=== PATIENT | female | born 1945 | race Caucasian/White ===

== ENCOUNTER → 2019-01-31 10:57 | Outpatient (CLI) | payer MEDICARE, SELFPAY ==
--- NOTE | 2019-02-07 17:06 | PM.PFT.1 ---
Pulmonary Function Test Referral & Results Date Patient Seen: 01/31/19 Requesting provider: Layla Snider Results: The spirometry demonstrates an FVC of 1.64 L which is 50% of predicted. The FEV1 was measured at 1.33 L which is 53% of predicted. The FEV1/FVC ratio was 81 which is 107% of predicted. Following the administration of bronchodilator there was at 33% improvement in FEF 25-75%. Lung volumes show an SVC of 1.65 L which is 52% of predicted. The diffusing capacity was measured at 14.72 which is 50% of predicted. No hemoglobin value was provided, so no correction for potential anemia could be made, if appropriate. The maximum voluntary ventilation was reduced Interpretation: This study demonstrates moderate to severe obstructive lung disease with some limited evidence of benefit following bronchodilator, particularly small airway flow based on improvement in FEF 25-75% There is also moderately severe reduction in lung volumes suggesting significant restrictive lung disease There is also significant disease at the capillary alveolar level based on reduction in diffusing capacity
== END ==
PROVIDERS: PCP Family Medicine; Visit Provider Internal Medicine
DX: R06.02 Shortness of breath (principal)
CPT/HCPCS: 94060; 94726; 94729

== ENCOUNTER 2019-12-29 11:24 | Inpatient (IN) | payer MEDICARE, SELFPAY ==
[2019-12-29] VITALS (12 sets, daily range): BP systolic 115–163; BP diastolic 57–101; PULSE 69–90; RESP 13–20; TEMP 36.6–37.1; O2SAT 89–96; BMI 36.8
[2019-12-29 11:52] LABS: Add Manual Diff / Slide Review NO; Basophils Absolute Auto 100 /uL (0-100); Basophils Percent Auto 0.6 % (0-2); Eosinophils Absolute Auto 100 /uL (0-450); Hematocrit 32.5 % (36-46); Lymphocytes Absolute Auto 1000 /uL (1100-4500); Lymphocytes Percent Auto 9.3 % (25-40); Mean Corpuscular HGB Conc 30.9 % (30-36); Mean Corpuscular Hemoglobin 21.6 PG (26-34); Monocytes Absolute Auto 900 /uL (0-900); Monocytes Percent Auto 8.3 % (3-14); Neutrophils Absolute Auto 8400 /uL (1500-7000); Neutrophils Percent Auto 80.8 % (50-75); Platelet Count 362 X10^3/uL (150-400); Red Blood Cell Count 4.64 X10^6/uL (4.0-5.2); Red Cell Distribution Width 22.6 % (11.6-14.8); White Blood Cell Count 10.4 X10^3/uL (4.5-11.0)
[2019-12-29 11:58] LABS: Alanine Aminotransferase 26 IU/L (<35); Albumin 4.6 g/dL (3.5-5.0); Albumin Globulin Ratio 1.3 (1.0-2.8); Alkaline Phosphatase 122 U/L (38-126); Aspartate Aminotransferase 51 IU/L (14-36); Bilirubin Total 1.9 mg/dL (0.2-1.3); Blood Urea Nitrogen 31 mg/dL (7-17); Calcium 9.5 mg/dL (8.4-10.2); Carbon Dioxide 32 mmol/L (22-32); Chloride 101 mmol/L (98-107); Estimated Glomerular Filt Rate 38.2 mL/min (>60); Globulin 3.6 g/dL (1.7-4.1); Glucose 110 mg/dL (80-110); HEMOLYSIS 64 (0-50); Potassium 3.9 mmol/L (3.4-5.1); Sodium 140 mmol/L (137-145); Total Protein 8.2 g/dL (6.3-8.2)
[2019-12-29 12:03] LABS: Anisocytosis 2+
[2019-12-29 12:09] LABS: Troponin I < 0.012 ng/mL (0.01-0.034)
--- NOTE | 2019-12-29 12:51 | ED_ITS ---
HPI - Dizziness <Yaima Peralta PA-C - Last Filed: 12/29/19 20:05> General Chief Complaint: Dizziness Stated Complaint: Dizziness x3days Time Seen by Provider: 12/29/19 12:49 Source: patient and EMS Mode of arrival: EMS Limitations: no limitations History of Present Illness HPI Narrative: This is a 74-year-old female with a history of CVA, and AFib, on blood thinners who presents to the emergency department complaining increasing dizziness for the last 2 days. She states actually the beginning of last week she was feeling like she was having dizziness, and not feeling her normal self. However by Sunday night had gotten so bad that she felt like she could not even walk, and she had episode of weakness in both of her legs where they were shaking and she felt like she would be unable to walk so she just climbed into bed this occurred on Sunday afternoon. She also had a brief headache on Sunday that resolved and came back slightly this morning in the back of her head. Since Sunday night she has dizziness constantly, has had no appetite and has had very little water. She has had some mild nausea but denies vomiting or abdominal pain and denies diarrhea or constipation. She states that when she had a stroke in 2010 a presented with dizziness, she is unable to give more details. She reports no previous history of chronic dizziness. She denies ear pain or ear discomfort, palpitations, syncope, chest pain, severe headache, or any other symptoms. She states she has otherwise been in her normal state of health. Related Data Home Medications Medication Instructions Recorded Confirmed allopurinol 300 mg PO DAILY 12/29/19 12/29/19 ascorbic acid (vitamin C) [Vitamin 500 mg PO QAM 12/29/19 12/29/19 C] atorvastatin 20 mg PO BEDTIME 12/29/19 12/29/19 calcium carbonate-vitamin D3 1 tab PO DAILY 12/29/19 12/29/19 [Calcium 600 with Vitamin D3] cetirizine [Zyrtec] 10 mg PO DAILY 12/29/19 12/29/19 cyanocobalamin (vitamin B-12) 1,000 mcg PO DAILY 12/29/19 12/29/19 [Vitamin B-12] fluoxetine 20 mg PO DAILY 12/29/19 12/29/19 furosemide 20 mg PO QPM 12/29/19 12/29/19 furosemide 60 mg PO QAM 12/29/19 12/29/19 gabapentin 900 mg PO BEDTIME 12/29/19 12/29/19 levothyroxine 50 mcg PO QAM 12/29/19 12/29/19 metoprolol succinate 100 mg PO BID 12/29/19 12/29/19 omeprazole 20 mg PO DAILY 12/29/19 12/29/19 warfarin 5 mg PO QPM 12/29/19 12/29/19 Previous Rx's Medication Instructions Recorded ondansetron HCl [Zofran] 4 mg PO Q8H #20 tab 12/29/19 Allergies Allergy/AdvReac Type Severity Reaction Status Date / Time amlodipine [AMLODIPINE] Allergy Unknown Verified 12/29/19 15:35 dexlansoprazole Allergy Unknown Verified 12/29/19 15:35 [From DEXILANT] lisinopril [LISINOPRIL] Allergy Unknown Verified 12/29/19 15:35 simvastatin [SIMVASTATIN] Allergy Unknown Verified 12/29/19 15:35 diltiazem Allergy Verified 12/29/19 13:31 Review of Systems <Yaima Peralta PA-C - Last Filed: 12/29/19 20:05> Review of Systems Narrative: GENERAL: Denies chills, fatigue, malaise, fever, sweats. HEENT: Denies sinus pain, ear pain, sore throat, difficulty swallowing, positive for dizziness and mild intermittent headache. RESPIRATORY: Denies dyspnea, cough, wheezing, hemoptysis, sputum. CARDIOVASCULAR: Denies chest pain, palpitations, orthopnea, edema, positive for AFib GASTROINTESTINAL: Positive for nausea, reduced appetite and p.o. intake, negative for vomiting, abdominal pain, diarrhea, constipation, melena, last bowel movement was on Sunday and was normal, chocolate brown in appearance. : Denies dysuria, frequency, incontinence, hematuria, urinary retention. MUSCULOSKELETAL: Positive for 1 episode of lower extremity weakness, negative for joint pain, or bony pain SKIN: Denies rash, skin lesions, or other NEUROLOGIC: Positive for 1 episode of lower extremity weakness, positive for intermittent headache, negative for numbness, possible positive for change in speech, negative for confusion, seizures, incoordination. PSYCHIATRIC: No concerning psychosocial issues. 12 point review of systems is negative except for those stated above Patient History <Yaima Peralta PA-C - Last Filed: 12/29/19 20:05> Social History household members: none Smoking Status: Never smoker alcohol intake: current Smoking Status: Never smoker alcohol intake frequency: 0-2 drinks per day Substance Use Type: does not use Exam <Yaima Peralta PA-C - Last Filed: 12/29/19 20:05> Narrative Exam Narrative: GENERAL: 74 year old patient appears stated age. Well-nourished, well-developed patient, in mild distress. HEAD: Atraumatic. Normocephalic. EYES: Pupils equal round and reactive. Extraocular motions intact. No scleral icterus. No nystagmus. No injection or drainage. ENT: Nose without bleeding, purulent drainage. Throat without erythema, tonsillar hypertrophy or exudate. Airway patent. NECK: Trachea midline. Non tender CARDIOVASCULAR: Regular rate and rhythm without murmurs, gallops, or rubs. RESPIRATORY: Clear to auscultation. Breath sounds equal bilaterally. No wheezes, rales, or rhonchi. GASTROINTESTINAL: Abdomen soft, non-tender, nondistended. EXTREMITIES: No edema or joint tenderness. BACK: Nontender without deformity or crepitance. No flank tenderness. NEURO: AOx3. No deficits found on neuro exam, with exception of mild speech delay, Cranial nerves are intact bilaterally, strength is intact and equal, coordination is intact. SKIN: No rash or erythema of visible areas Initial Vital Signs Initial Vital Signs: Vital Signs Temperature 97.9 F 12/29/19 11:30 Pulse Rate 77 12/29/19 11:30 Respiratory Rate 18 12/29/19 11:30 Blood Pressure 163/75 H 12/29/19 11:30 Pulse Oximetry 96 12/29/19 11:30 <Annmarie Watson MD - Last Filed: 12/30/19 07:35> Initial Vital Signs Initial Vital Signs: Vital Signs Temperature 97.9 F 12/29/19 11:30 Pulse Rate 77 12/29/19 11:30 Respiratory Rate 18 12/29/19 11:30 Blood Pressure 163/75 H 12/29/19 11:30 Pulse Oximetry 96 12/29/19 11:30 Course <Yaima Peralta PA-C - Last Filed: 12/29/19 20:05> Orders Ordered: Acetaminophen (Tylenol) 650 mg PO Q6HR PRN PRN Reason: Fever/Mild Pain (1-3) Allopurinol (Zyloprim) 300 mg PO DAILY [facility] Ascorbic Acid (Vitamin C) 500 mg PO DAILY [facility] Atorvastatin Calcium (Lipitor) 20 mg PO BEDTIME [facility] Last Admin: 12/29/19 20:57 Dose: 20 mg Documented by: MARJAN Calcium Carbonate/Cholecalciferol (Oyster Shell 500-Vit D3 200 Tb) 1 each PO DAILY [facility] Cyanocobalamin (Vitamin B-12) 1,000 mcg PO DAILY [facility] Fluoxetine HCl (Prozac) 20 mg PO DAILY [facility] Furosemide (Lasix) 60 mg PO DAILY [facility] Furosemide (Lasix) 20 mg PO QPM [facility] Gabapentin (Neurontin) 900 mg PO BEDTIME [facility] Last Admin: 12/29/19 20:57 Dose: 900 mg Documented by: MARJAN Sodium Chloride (Normal Saline 0.9%) 1,000 mls @ 75 mls/hr IV CONT [facility] Last Admin: 12/30/19 00:29 Dose: 75 mls/hr Documented by: Infusion: 12/30/19 00:29 Dose: 75 mls/hr Documented by: Admin: 12/29/19 19:00 Dose: 75 mls/hr Documented by: MARJAN Ceftriaxone Sodium/Dextrose (Rocephin) 1 gm in 50 mls @ 100 mls/hr IV Q24H [facility] Last Infusion: 12/30/19 00:36 Dose: 0 mls/hr Documented by: Admin: 12/29/19 20:57 Dose: 100 mls/hr Documented by: MARJAN Levothyroxine Sodium (Synthroid) 50 mcg PO 0600 [facility] Last Admin: 12/30/19 06:11 Dose: 50 mcg Documented by: PETRONA Metoprolol Succinate (Toprol Xl) 100 mg PO BID [facility] Last Admin: 12/29/19 20:58 Dose: 100 mg Documented by: MARJAN Naloxone HCl (Narcan) 0.2 mg IV Q2MIN PRN PRN Reason: Opiate Reversal Stored In Pharmacy 1 each PO PRN PRN PRN Reason: PROTOCOL Ondansetron HCl (Zofran) 4 mg IV Q4HR [facility] Last Admin: 12/30/19 06:11 Dose: 4 mg Documented by: Admin: 04/28/20 00:29 Dose: 4 mg Documented by: Admin: 12/29/19 21:34 Dose: Not Given Documented by: MARJAN Warfarin Sodium (Coumadin) 5 mg PO QPM INES Discontinued Medications Sodium Chloride (Normal Saline 0.9%) 1,000 mls @ 150 mls/hr IV CONT INES Last Infusion: 12/29/19 20:15 Dose: 0 mls/hr Documented by: Admin: 12/29/19 13:34 Dose: 150 mls/hr Documented by: ARSH Meclizine HCl (Antivert) 25 mg PO NOW ONE Stop: 12/29/19 15:23 Last Admin: 12/29/19 15:36 Dose: 25 mg Documented by: ARSH Ondansetron HCl (Zofran) 4 mg IV NOW ONE Stop: 12/29/19 13:15 Last Admin: 12/29/19 13:32 Dose: 4 mg Documented by: ARSH Reevaluation(s) Reevaluation #1: I reexamined the patient prior to discharge, she stated she was feeling much better could open her eyes, did feel dizzy and discussed the results of her CT scan and labs today. Requested walk test prior to patient being discharged, RN stated that she failed this, was having to hold onto the wall and having difficulty walking due to her dizziness. We will try meclizine to see if this improves her dizziness still further. Time: 15:20 Reevaluation #2: Patient was still on and able to tolerate walking, after meclizine, spoke with Dr. Watson about this patient and we feel she is appropriate for admission given her history of CVA presenting with dizziness, in her ongoing dizziness with inability to walk. Spoke with the hospitalist, who has accepted the patient. Time: 16:31 Vital Signs Vital signs: Vital Signs - 8 hr 12/29/19 13:00 12/29/19 13:30 12/29/19 14:31 Pulse Rate 90 78 82 Respiratory Rate 18 18 13 Blood Pressure [Left Arm] 158/76 H 159/82 H 159/82 H Pulse Oximetry 94 96 93 12/29/19 16:30 12/29/19 17:02 Pulse Rate 79 81 Respiratory Rate 20 18 Blood Pressure [Left Arm] 140/79 153/101 H Pulse Oximetry 96 <Annmarie Watson MD - Last Filed: 12/30/19 07:35> Orders Ordered: Acetaminophen (Tylenol) 650 mg PO Q6HR PRN PRN Reason: Fever/Mild Pain (1-3) Allopurinol (Zyloprim) 300 mg PO DAILY [facility] Ascorbic Acid (Vitamin C) 500 mg PO DAILY [facility] Atorvastatin Calcium (Lipitor) 20 mg PO BEDTIME [facility] Last Admin: 12/29/19 20:57 Dose: 20 mg Documented by: MARJAN Calcium Carbonate/Cholecalciferol (Oyster Shell 500-Vit D3 200 Tb) 1 each PO DAILY [facility] Cyanocobalamin (Vitamin B-12) 1,000 mcg PO DAILY [facility] Fluoxetine HCl (Prozac) 20 mg PO DAILY [facility] Furosemide (Lasix) 60 mg PO DAILY [facility] Furosemide (Lasix) 20 mg PO QPM [facility] Gabapentin (Neurontin) 900 mg PO BEDTIME [facility] Last Admin: 12/29/19 20:57 Dose: 900 mg Documented by: MARJAN Sodium Chloride (Normal Saline 0.9%) 1,000 mls @ 75 mls/hr IV CONT [facility] Last Admin: 12/30/19 00:29 Dose: 75 mls/hr Documented by: Infusion: 12/30/19 00:29 Dose: 75 mls/hr Documented by: Admin: 12/29/19 19:00 Dose: 75 mls/hr Documented by: MARJAN Ceftriaxone Sodium/Dextrose (Rocephin) 1 gm in 50 mls @ 100 mls/hr IV Q24H [facility] Last Infusion: 12/30/19 00:36 Dose: 0 mls/hr Documented by: Admin: 12/29/19 20:57 Dose: 100 mls/hr Documented by: MARJAN Levothyroxine Sodium (Synthroid) 50 mcg PO 0600 [facility] Last Admin: 12/30/19 06:11 Dose: 50 mcg Documented by: PETRONA Metoprolol Succinate (Toprol Xl) 100 mg PO BID [facility] Last Admin: 12/29/19 20:58 Dose: 100 mg Documented by: MARJAN Naloxone HCl (Narcan) 0.2 mg IV Q2MIN PRN PRN Reason: Opiate Reversal Stored In Pharmacy 1 each PO PRN PRN PRN Reason: PROTOCOL Ondansetron HCl (Zofran) 4 mg IV Q4HR [facility] Last Admin: 12/30/19 06:11 Dose: 4 mg Documented by: Admin: 12/30/19 00:29 Dose: 4 mg Documented by: Admin: 12/29/19 21:34 Dose: Not Given Documented by: MARJAN Warfarin Sodium (Coumadin) 5 mg PO QPM [facility] Discontinued Medications Sodium Chloride (Normal Saline 0.9%) 1,000 mls @ 150 mls/hr IV CONT [facility] Last Infusion: 12/29/19 20:15 Dose: 0 mls/hr Documented by: Admin: 12/29/19 13:34 Dose: 150 mls/hr Documented by: ARSH Meclizine HCl (Antivert) 25 mg PO NOW ONE Stop: 12/29/19 15:23 Last Admin: 12/29/19 15:36 Dose: 25 mg Documented by: ARSH Ondansetron HCl (Zofran) 4 mg IV NOW ONE Stop: 12/29/19 13:15 Last Admin: 12/29/19 13:32 Dose: 4 mg Documented by: ARSH Vital Signs Vital signs: Vital Signs - 8 hr 12/29/19 13:00 12/29/19 13:30 12/29/19 14:31 Pulse Rate 90 78 82 Respiratory Rate 18 18 13 Blood Pressure [Left Arm] 158/76 H 159/82 H 159/82 H Pulse Oximetry 94 96 93 12/29/19 16:30 12/29/19 17:02 Pulse Rate 79 81 Respiratory Rate 20 18 Blood Pressure [Left Arm] 140/79 153/101 H Pulse Oximetry 96 MDM - Dizziness <Yaima Peralta PA-C - Last Filed: 12/29/19 20:05> Differential Diagnosis Differential diagnosis: Likely benign paroxysmal positional vertigo, cerebrovascular accident and other (dehydration, chronic blood loss) Lab Data Result diagrams: 12/30/19 05:20 12/30/19 05:20 Labs: Lab Results 12/29/19 12/29/19 Range/Units 11:35 11:35 WBC 10.4 (4.5-11.0) X10^3/uL RBC 4.64 (4.0-5.2) X10^6/uL Hgb 10.0 L (12.0-16.0) g/dL Hct 32.5 L (36-46) % MCV 70.0 L (80-100) fL MCH 21.6 L (26-34) PG MCHC 30.9 (30-36) % RDW 22.6 H (11.6-14.8) % Plt Count 362 (150-400) X10^3/uL Neut % (Auto) 80.8 H (50-75) % Lymph % (Auto) 9.3 L (25-40) % [place] % (Auto) 8.3 (3-14) % Eos % (Auto) 1.0 L (2-4) % Baso % (Auto) 0.6 (0-2) % Neut # (Auto) 8400 H (4108-3289) /uL Lymph # (Auto) 1000 L (7608-3851) /uL [place] # (Auto) 900 (0-900) /uL Eos # (Auto) 100 (0-450) /uL Baso # (Auto) 100 (0-100) /uL RBC Morphology Not Reportable Anisocytosis 2+ H Sodium 140 (137-145) mmol/L Potassium 3.9 (3.4-5.1) mmol/L Chloride 101 (98-107) mmol/L Carbon Dioxide 32 (22-32) mmol/L BUN 31 H (7-17) mg/dL Creatinine 1.35 H (0.52-1.04) mg/dL Estimated GFR 38.2 L (>60) mL/min BUN/Creatinine Ratio 23.0 H (6-22) Glucose 110 (80-110) mg/dL Calcium 9.5 (8.4-10.2) mg/dL Total Bilirubin 1.9 H (0.2-1.3) mg/dL AST 51 H (14-36) IU/L ALT 26 (<35) IU/L Alkaline Phosphatase 122 (38-126) U/L Troponin I < 0.012 (0.01-0.034) ng/mL Total Protein 8.2 (6.3-8.2) g/dL Albumin 4.6 (3.5-5.0) g/dL Globulin 3.6 (1.7-4.1) g/dL Albumin/Globulin Ratio 1.3 (1.0-2.8) Imaging Data CT scan - head: Attestation: I personally reviewed and interpreted this imaging study as follows: Radiologist's Impression: [address] [address] [address] Scan Report Signed Patient: Sybil Wadsworth [facility]#: [id number] : 5Acct:[id number] Age/Sex: 74 / FDate of Service: 12/29/19 Loc: ED Accession Number: [id number] Procedure: CT head/brain wo con Ordering Provider: Yaima Peralta P.A-C PROCEDURE: CT HEAD/BRAIN WO CON INDICATIONS: dizziness, speech disturbance, A-fib+CVA hx TECHNIQUE: Noncontrast 4.5 mm thick angled axial sections acquired from the foramen magnum to the vertex, with coronal and sagittal reformats. For radiation dose reduction, the following was used: automated exposure control, adjustment of mA and/or kV according to patient size. COMPARISON: MR, MR BRAIN WO CON, 01/10/2017, 14:54. CT, BRAIN (TPA), 01/10/2017, 13:12. FINDINGS: Image quality: Excellent. CSF spaces: Basal cisterns are patent. No extra-axial fluid collections. The ventricles are symmetric in size and shape. Brain: No intracranial bleeds or masses. There is cerebral volume loss for age, with resultant ventricular and sulcal prominence. There are periventricular and deep white matter chronic small vessel ischemic changes. There is intracranial internal carotid artery atherosclerosis. Low attenuation is present within the left frontal temporal lobe, consistent with old ischemia. Skull and face: Calvarium and visualized facial bones appear intact, without suspicious lesions. Sinuses: Visualized sinuses and mastoids are clear. IMPRESSION: 1. No acute intracranial process. 2. Moderate atrophy and chronic microvascular ischemic changes. Dictated by: Carolyn Brown M.D. on 12/29/2019 at 13:47 Approved by: Carolyn Brown M.D. on 12/29/2019 at 13:50 MDM Narrative Medical decision making narrative: This is a 74-year-old woman who presents to the emergency department with 7 days of dizziness, much worse in the last 2 days, continuing to worsen. Appears to be in mild discomfort due to her dizziness. Lying still, with eyes closed. History is notable for CVA, AFib, she is currently on blood thinner. While her symptoms are somewhat consistent with a benign paroxysmal positional vertigo, she has a speech deficit (delayed speech, some word-finding issues) which she reports has been present since her 2011 CVA, however she says it worsens at times of stress and she is very much unable to tell if it has been different for her in the last few days or today. She also reports she has residual right-sided sensation deficit, but no issues with strength. Her H&H is notably slightly low, although she denies any GI symptoms that might contribute to chronic blood loss. Given her history and concern for possible CVA/brain bleed, non-con CT today. She is well outside the window for tPA should her symptoms be due to a CVA. CT showed no intracranial bleeds or masses, I suspect that her dizziness is ja tigo, although it is less likely BPPV as it has been constant since Sunday. She reports problems with instability with walking difficulty walking. Her dizziness is worsened with moving her head. Does not have any nystagmus on exam. Based on the fact that she was unable to ambulate, had severe continued dizziness even after medication with metoclopramide and Zofran, and reportedly feeling better, still concern for CVA and she is certainly unable to return home in this state as she is unable to walk normally. Spoke with Dr. Leon, hospitalist and he has agreed to accept the patient for further evaluation which may include CT angiogram head and neck, and MRI tomorrow. <Annmarie Watson MD - Last Filed: 12/30/19 07:35> Lab Data Labs: Lab Results 12/29/19 12/29/19 Range/Units 11:35 11:35 WBC 10.4 (4.5-11.0) X10^3/uL RBC 4.64 (4.0-5.2) X10^6/uL Hgb 10.0 L (12.0-16.0) g/dL Hct 32.5 L (36-46) % MCV 70.0 L (80-100) fL MCH 21.6 L (26-34) PG MCHC 30.9 (30-36) % RDW 22.6 H (11.6-14.8) % Plt Count 362 (150-400) X10^3/uL Neut % (Auto) 80.8 H (50-75) % Lymph % (Auto) 9.3 L (25-40) % [place] % (Auto) 8.3 (3-14) % Eos % (Auto) 1.0 L (2-4) % Baso % (Auto) 0.6 (0-2) % Neut # (Auto) 8400 H (6513-0954) /uL Lymph # (Auto) 1000 L (2596-5645) /uL [place] # (Auto) 900 (0-900) /uL Eos # (Auto) 100 (0-450) /uL Baso # (Auto) 100 (0-100) /uL RBC Morphology Not Reportable Anisocytosis 2+ H Sodium 140 (137-145) mmol/L Potassium 3.9 (3.4-5.1) mmol/L Chloride 101 (98-107) mmol/L Carbon Dioxide 32 (22-32) mmol/L BUN 31 H (7-17) mg/dL Creatinine 1.35 H (0.52-1.04) mg/dL Estimated GFR 38.2 L (>60) mL/min BUN/Creatinine Ratio 23.0 H (6-22) Glucose 110 (80-110) mg/dL Calcium 9.5 (8.4-10.2) mg/dL Total Bilirubin 1.9 H (0.2-1.3) mg/dL AST 51 H (14-36) IU/L ALT 26 (<35) IU/L Alkaline Phosphatase 122 (38-126) U/L Troponin I < 0.012 (0.01-0.034) ng/mL Total Protein 8.2 (6.3-8.2) g/dL Albumin 4.6 (3.5-5.0) g/dL Globulin 3.6 (1.7-4.1) g/dL Albumin/Globulin Ratio 1.3 (1.0-2.8) Discharge Plan Departure Patient Disposition: Home Clinical Impression: Vertigo, Nausea Discharge Date/Time: 12/29/19 17:43 Admit Date/Time: 12/29/19 17:03 Admit Provider: Carlos Alberto Leon <Annmarie Watson MD - Last Filed: 12/30/19 07:35> Cosign ED Attending Cosignature Attestation: I was immediately available in the department for consultation throughout this patient's visit. I agree with documentation as above. Annmarie Watson MD
--- NOTE | 2019-12-29 13:15 | DI.CT.S_ITS ---
PROCEDURE: CT HEAD/BRAIN WO CON INDICATIONS: dizziness, speech disturbance, A-fib+CVA hx TECHNIQUE: Noncontrast 4.5 mm thick angled axial sections acquired from the foramen magnum to the vertex, with coronal and sagittal reformats. For radiation dose reduction, the following was used: automated exposure control, adjustment of mA and/or kV according to patient size. COMPARISON: MR, MR BRAIN WO CON, 01/10/2017, 14:54. CT, BRAIN (TPA), 01/10/2017, 13:12. FINDINGS: Image quality: Excellent. CSF spaces: Basal cisterns are patent. No extra-axial fluid collections. The ventricles are symmetric in size and shape. Brain: No intracranial bleeds or masses. There is cerebral volume loss for age, with resultant ventricular and sulcal prominence. There are periventricular and deep white matter chronic small vessel ischemic changes. There is intracranial internal carotid artery atherosclerosis. Low attenuation is present within the left frontal temporal lobe, consistent with old ischemia. Skull and face: Calvarium and visualized facial bones appear intact, without suspicious lesions. Sinuses: Visualized sinuses and mastoids are clear. IMPRESSION: 1. No acute intracranial process. 2. Moderate atrophy and chronic microvascular ischemic changes. Dictated by: Carolyn Brown M.D. on 12/29/2019 at 13:47 Approved by: Carolyn Brown M.D. on 12/29/2019 at 13:50
[2019-12-29] MEDS: ONDANSETRON 4 MG/2 ML INJ IV (13:32)
[2019-12-29] MEDS: SODIUM CHLORIDE 0.9% 1,000 ML 150 ML IV (13:34)
--- NOTE | 2019-12-29 15:25 | PC.NURSE ---
Pt ambulates out room door and requests to return to bed, stating I am so dizzy. Yaima Peralta informed.
[2019-12-29] MEDS: MECLIZINE HCL 12.5 MG TABLET 25 MG PO (15:36)
--- NOTE | 2019-12-29 18:36 | P.HP_ITS ---
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 She is experiencing dizziness at rest and throughout the day. Nothing seems to make it better or worse. It does not seem to be positional in nature. The dizziness does improve when she closes her eyes. She has been nauseous and not eating much over the past few days. She de nies fever, chills, headaches, cough, shortness of breath, vision changes, palpitations. She denies any falls due to the dizziness or prior to this starting. In the emergency room, patient was mildly hypertensive but other vitals were unremarkable. Labortatory evaluation showed a Hg of 10.0, MCV of 70, Cr of 1.35, Tbili 1.9, AST of 51. Unknown baseline values including Cr. Troponin was negative. UA showed small amount of WBC and LE but no nitrites and was reflexed to culture. CT head was negative for acute hemorrhage. She was given meclizine and zofran with some relief of nausea but not dizziness. She was admitted for further evaluation after failing to ambulate in the emergency room. Patient History Family & Social History Social History: household members none Prior Living Arrangements Apartment/Condo Safety & Behavioral: Feels Safe in Current Yes Environment Been Physically Hurt or No Threatened By a Person Suicidal Ideation Description None Suicide Plan Description No Plan Tobacco & Substance use: Smoking Status Never smoker alcohol intake current alcohol intake frequency 0-2 drinks per day Substance Use Type does not use Meds Home Medications and Allergies Home Medications Medication Instructions Recorded Confirmed Type allopurinol 300 mg PO DAILY 12/29/19 12/29/19 History ascorbic acid (vitamin C) [Vitamin 500 mg PO QAM 12/29/19 12/29/19 History C] atorvastatin 20 mg PO BEDTIME 12/29/19 12/29/19 History calcium carbonate-vitamin D3 1 tab PO DAILY 12/29/19 12/29/19 History [Calcium 600 with Vitamin D3] cetirizine [Zyrtec] 10 mg PO DAILY 12/29/19 12/29/19 History cyanocobalamin (vitamin B-12) 1,000 mcg PO DAILY 12/29/19 12/29/19 History [Vitamin B-12] fluoxetine 20 mg PO DAILY 12/29/19 12/29/19 History furosemide 20 mg PO QPM 12/29/19 12/29/19 History furosemide 60 mg PO QAM 12/29/19 12/29/19 History gabapentin 900 mg PO BEDTIME 12/29/19 12/29/19 History levothyroxine 50 mcg PO QAM 12/29/19 12/29/19 History metoprolol succinate 100 mg PO BID 12/29/19 12/29/19 History omeprazole 20 mg PO DAILY 12/29/19 12/29/19 History ondansetron HCl [Zofran] 4 mg PO Q8H #20 tab 12/29/19 Rx warfarin 5 mg PO QPM 12/29/19 12/29/19 History Allergies Allergy/AdvReac Type Severity Reaction Status Date / Time amlodipine [AMLODIPINE] Allergy Unknown Verified 12/29/19 15:35 dexlansoprazole Allergy Unknown Verified 12/29/19 15:35 [From DEXILANT] lisinopril [LISINOPRIL] Allergy Unknown Verified 12/29/19 15:35 simvastatin [SIMVASTATIN] Allergy Unknown Verified 12/29/19 15:35 diltiazem Allergy Verified 12/29/19 13:31 Review of Systems Review of Systems Narrative: All other systems reviewed with the patient and are negative unless otherwise stated. Exam Vital Signs (past 8 hours): - 12/29/19 11:30 12/29/19 13:00 12/29/19 13:30 Temperature 97.9 F Pulse Rate 77 90 78 Respiratory Rate 18 18 18 Blood Pressure 163/75 H Blood Pressure [Left Arm] 158/76 H 159/82 H Pulse Oximetry 96 94 96 12/29/19 14:31 12/29/19 16:30 12/29/19 17:02 Temperature Pulse Rate 82 79 81 Respiratory Rate 13 20 18 Blood Pressure Blood Pressure [Left Arm] 159/82 H 140/79 153/101 H Pulse Oximetry 93 96 Oxygen Delivery Method Room Air Narrative Exam Narrative: GENERAL APPEARANCE: Well developed, well nourished, in no acute distress. Eyes closed frequently. SKIN: Inspection of the skin reveals no rashes, ulcerations or petechiae. HEENT: Normocephalic atraumatic, extraocular muscles are intact, oropharynx is clear and mucous membranes are moist, neck is supple without adenopathy NECK: Supple and symmetric. There was no thyroid enlargement, and no tenderness, or masses were felt. CHEST: Normal AP diameter and normal contour without any kyphoscoliosis. LUNGS: Auscultation of the lungs revealed no wheezes, rhonchi, or rales. CARDIOVASCULAR: Irregularly irregular with normal rate. No murmurs rubs or gallops. ABDOMEN: Soft and nontender with normal bowel sounds. No ascites was noted. MUSCULOSKELETAL: There was no tenderness or effusions noted. Muscle strength and tone were normal. EXTREMITIES: No cyanosis, clubbing or edema. NEUROLOGIC: Alert and oriented x 3. Normal affect. Strength is +5/5 in the Upper Extremities and Lower Extremities Bilaterally. Sensation to touch was asymmetric at the patient's baseline. Finger to nose is accurate and smooth. Heel to prince unremarkable. Cranial nerves 2-12 grossly intact bilaterally. No nystagmus noted. Objective Labs Result Diagrams: 12/29/19 11:35 12/29/19 11:35 Labs: Laboratory Results - last 24 hr 12/29/19 12/29/19 11:35 11:35 WBC 10.4 RBC 4.64 Hgb 10.0 L Hct 32.5 L MCV 70.0 L MCH 21.6 L MCHC 30.9 RDW 22.6 H Plt Count 362 Neut % (Auto) 80.8 H Lymph % (Auto) 9.3 L [place] % (Auto) 8.3 Eos % (Auto) 1.0 L Baso % (Auto) 0.6 Neut # (Auto) 8400 H Lymph # (Auto) 1000 L [place] # (Auto) 900 Eos # (Auto) 100 Baso # (Auto) 100 RBC Morphology Not Reportable Anisocytosis 2+ H Sodium 140 Potassium 3.9 Chloride 101 Carbon Dioxide 32 BUN 31 H Creatinine 1.35 H Estimated GFR 38.2 L BUN/Creatinine Ratio 23.0 H Glucose 110 Calcium 9.5 Total Bilirubin 1.9 H AST 51 H ALT 26 Alkaline Phosphatase 122 Troponin I < 0.012 Total Protein 8.2 Albumin 4.6 Globulin 3.6 Albumin/Globulin Ratio 1.3 Assessment & Plan Assessment & Plan narrative: Sybil Wadsworth is a 74 y/o F with PMH of afib on coumadin, Hypertension, hyperlipidemia, previous CVA x3 (ischemic and hemorrhagic) with residual right-sided whole-body altered sensation as well as mild dysarthria. She has presented with worsening dizziness over the past week, worse over this past weekend to the point where she is having difficulty walking. She is admitted under concern for possible posterior CVA. 1. Dizziness, acute, present on admission - differential includes posterior circulation CVA, which there is concern given the patient's history. Dizziness does not seem to be positional. Consider BPPV although no evidence on exam of this. Doubt acute cystitis would be the etiology of this dizziness. - PT/OT eval and treat - continue meclizine and zofran as needed - MR stroke in the AM - have ordered TTE 2. atrial fibrillation on anticoagulation, unknown type - continue home medications including warfarin 5 mg daily (2.5 on Sunday) and metoprolol. - follow INR daily. 3. HTN - continue home medications 4. acute cystitis, present on admission - continue ceftriaxone x3 days - follow up urine culture. 5. HLD - continue home statin 6. History of previous CVA, both ischemic and hemorrhagic. Code: Full, has POLST form at her house. Surrogate decision maker is the daughter. Dispo: Admitted under observation status at this time, pending MRI. Inpatient if this represents a posterior circulation infarct.
--- NOTE | 2019-12-29 18:37 | DI.MRI.S_ITS ---
PROCEDURE: MR STROKE Pre- and post-contrast brain MRI, non-contrast brain MR angiogram, pre- and postcontrast neck MR angiogram INDICATIONS: persistent dizziness at rest, suspect CVA, hx of prior CVAx3 TECHNIQUE: Brain: Noncontrast axial T1 spin echo, axial T2 fast spin echo, sagittal and axial FLAIR, coronal T2 fast spin echo, axial gradient echo, axial diffusion and ADC through the brain. After the administration of contrast, axial 3D VIBE of the cranial vasculature and brain. Brain MRA: Non-contrast 3-D time of flight MR angiogram, with multiple lbtfemy-hfoakujjb-xjujdlekjt (MIP) reformats performed. Neck MRA: Axial and sagittal TruFISP through the neck. Coronal dynamic MR angiogram during administration of contrast in the arterial and venous phases, with 3-dimenstional qoicrzv-kachrajwg-qabfktlizn (MIP) reformats constructed from subtraction images. COMPARISON: [facility], CT, CT HEAD/BRAIN WO CON, 12/29/2019, 13:32. FINDINGS: Image quality: Excellent. BRAIN: CSF spaces: Ventricles are normal in size and shape. Basal cisterns are patent. No extra-axial fluid collections. Brain: Focal volume loss and encephalomalacia can be seen involving the left frontal lobe laterally and posteriorly. No intracranial bleeds or mass effects. Diffusion weighted images show no acute ischemic insults. Brainstem appears normal. Normal intravascular flow voids are present. No abnormal intracranial enhancement. Skull and face: Calvarial marrow signal is normal. Orbits appear normal. Sinuses: Sinuses and mastoids are clear. BRAIN MR ANGIOGRAM: Anterior circulation: Intracranial internal carotid arteries are normal in size and enhancement. The flow within the paired anterior cerebral arteries is normal and symmetric. The flow within the middle cerebral arteries is normal and symmetric. The anterior communicating artery is not definitely seen. No stenoses, occlusions, or aneurysms. Posterior circulation: The visualized portions of the vertebral arteries demonstrate normal caliber, and join to form a normal appearing basilar artery. There is a prominent left posterior communicating artery seen, with an accompanying diminutive left P1 segment. This is attributed to a type origin of the left posterior cerebral artery, which is considered to be a normal developmental variant of typically no clinical consequence. The flow within the posterior cerebral arteries is normal and symmetric. No stenoses, occlusions, or aneurysms. NECK MR ANGIOGRAM: Carotids: Great vessels demonstrate a conventional anatomy as they arise from the aortic arch. The origins of the common carotid arteries appear patent. The calibers and courses of both common carotid arteries are normal. The bifurcation regions appear normal bilaterally. The internal carotid arteries demonstrate normal course and caliber. Posterior circulation: The origins of the vertebral arteries appear patent. More superior portions of both vertebral arteries demonstrate normal course and caliber, and join to form a normal appearing basilar artery. Miscellaneous: Subclavian arteries appear patent. Pre-contrast images through the neck show no soft tissue abnormalities. IMPRESSION: BRAIN MRI: No findings of acute or subacute infarction can be seen. Remote left frontal lobe infarction. No masses or abnormal enhancement can be seen. BRAIN MR ANGIOGRAM: No significant intracranial arterial abnormality is seen. NECK MR ANGIOGRAM: Within the arteries of the neck, no hemodynamically significant stenosis can be seen. Dictated by: Ubaldo Melendrez M.D. on 12/30/2019 at 10:31 Approved by: Ubaldo Melendrez M.D. on 12/30/2019 at 10:35
--- NOTE | 2019-12-29 18:37 | DI.ECHO.S_ITS ---
[facility] + [facility] +---------+ : : [address] : : : : [place], : : : : [place] [id number] : : : : Phone: [phone] [facility] Echocardiogram Report + + :Name: SHWETA MONCADA Study Date: 12/30/2019 Height: 66 in : :[facility] Weight: 228 lb : : Gender: Female BSA: 2.1 m2 : :: 1945 Age: 74 yrs BP: 135/65 mmHg: :Reason For Study: CVA : :Ordering Physician: [place] : :Hospitalist Performed By: Yola Davis : :Referring: ANJEL HURLEY : + + Interpretation Summary 1) Normal left ventricular size, thickness, wall motion, and systolic function (EF 60-65%). 2) Normal right ventricular size and function. 3) No significant valvular abnormalities. 4) Compared to the Echo done 12/27/2018, no significant change. Procedure: A two-dimensional transthoracic echocardiogram with color flow and Doppler was performed. The study quality was technically adequate. Comparison is made with the echocardiogram of 12/27/2018. The patient was in atrial fibrillation with heart rates between 70-90 bpm during the exam. Left Ventricle: The left ventricle is normal in size. Left ventricular wall thickness is mildly increased. The ejection fraction is estimated to be 60- 65%. Left ventricular systolic function is normal without focal wall motion abnormalities. Diastolic function could not be accurately assessed due to atrial fibrillation. Right Ventricle: The right ventricle is normal in size and function. Atria: The left atrium is moderately dilated. The right atrium is mildly dilated. There is no Doppler evidence for an interatrial shunt. Mitral Valve: There is mild mitral annular calcification. The mitral valve is normal in structure and function. There is mild mitral regurgitation. Aortic Valve: The aortic valve is trileaflet. The aortic valve opens well. There is no aortic valve stenosis. There is trace aortic regurgitation. Tricuspid Valve: The tricuspid valve is normal in structure and function. There is mild tricuspid regurgitation. The right ventricular systolic pressure is estimated to be at least 38 mmHg based on an estimated right atrial pressure of 3 mm Hg. Pulmonic Valve: The pulmonic valve is normal in structure and function. There is a trace or physiologic amount of pulmonic regurgitation. Great Vessels: The aortic root is normal size. The ascending aorta is at the upper limits of normal in size. The aortic arch is normal in size. The IVC is of normal diameter and collapses greater than 50% with a sniff. This suggests a low right atrial pressure of 3 mm Hg. Pericardium/ Pleura There is no pericardial effusion. There is no pleural effusion. MMode/2D Measurements & Calculations LVIDd: 4.2 cm AoV Openin.9 cm LVIDs: 2.8 cm LVOT diam: 2.2 cm IVSd: 1.2 cm Ao root diam: 3.1 cm LVPWd: 0.98 cm asc Aorta Diam: 3.3 cm LV ovalles. diameter/BSA (cm/m^2): 2.0 Ao Arch Diam (Prox Trans): 2.4 cm LV sys. diameter/BSA (cm/m^2): 1.3 FS: 32.6 % LA A2 area: 25.8 cm2 RA long axis: 6.2 cm LA A4 area: 26.2 cm2 RA area: 21.8 cm2 LA length (vol): 6.6 cm RA vol: 64.9 ml LA vol: 86.7 ml RA : 30.7 ml/m2 LA vol index: 41.0 ml/m2 RVD1 (basal): 3.6 cm TAPSE: 2.0 cm Doppler Measurements & Calculations Ao V2 max: 105.6 cm/sec LVOT Max Doug: 75.4 cm/sec Ao V2 mean: 72.5 cm/sec LV V1 max P.3 mmHg Ao V2 VTI: 22.1 cm LV V1 VTI: 15.6 cm Ao max P.5 mmHg Ao mean P.3 mmHg TENISHA(I,D): 2.7 cm2 MV E max doug: 125.5 cm/sec TENISHA(V,D): 2.7 cm2 MV A max doug: 3.9 cm/sec TENISHA indexed to BSA (cm^2/m^2): 1.3 MV E/A: 32.3 sev ratio: 0.71 Med Peak E' Doug: 6.9 cm/sec E/E' med: 18.1 Lat Peak E' Doug: 8.8 cm/sec E/E' lat: 14.3 E/e' average: 16.2 MV dec time: 0.17 sec TR max doug: 295.4 cm/sec TR max P.9 mmHg PA V2 max: 75.2 cm/sec SV(LVOT): 58.7 ml PA V2 mean: 49.8 cm/sec PA mean P.1 mmHg Reading Physician:03:33 PM
[2019-12-29] MEDS: SODIUM CHLORIDE 0.9% 1,000 ML 75 ML IV (19:00)
[2019-12-29 19:12] LABS: Appearance Urine UA CLEAR; Bilirubin Urine UA NEGATIVE (NEGATIVE); Color Urine UA YELLOW; Glucose Urine UA NEGATIVE (Negative); Ketones Urine UA NEGATIVE (NEGATIVE); Leukocyte Esterase Urine UA 1+ (NEGATIVE); Nitrite Urine UA NEGATIVE (Negative); Occult Blood Urine UA NEGATIVE (Negative); Protein Urine UA NEGATIVE (Negative); Specific Gravity Urine UA 1.015 (1.000-1.035); Urobilinogen Urine UA 0.2 E.U./dL (0.2)
[2019-12-29 19:16] LABS: Bacteria Urine None Seen
[2019-12-29 19:28] LABS: Culture Indicated Urine Specimen Cultured; Hyaline Casts Urine 0-1/LPF; RBC Urine 0-1/HPF (0-5/HPF); Squamous Epithelial Cell Urine 0-1 /HPF (0-5/HPF); WBC Urine 5-10/HPF (0-5/HPF)
[2019-12-29] MEDS: CEFTRIAXONE 1 GM/50 ML FROZ.PIGGY IV (20:57)
[2019-12-29] MEDS: GABAPENTIN 300 MG CAPSULE 900 MG PO (20:57)
[2019-12-29] MEDS: ATORVASTATIN 20 MG TABLET PO (20:57)
[2019-12-29] MEDS: METOPROLOL ER 50 MG TABLET 100 MG PO (20:58)
--- NOTE | 2019-12-29 22:00 | PC.NURSE ---
Admission Note Patient brought up to floor via stretcher by this RN. Patient A&O, VSS, no complaints of pain or discomfort. Admission paperwork completed by this RN. Patient home medication sent to pharmacy by this RN.
[2019-12-30] VITALS (7 sets, daily range): BP systolic 110–136; BP diastolic 69–79; PULSE 60–82; RESP 16–18; TEMP 36.4–37.1; O2SAT 92–97
--- NOTE | 2019-12-30 00:08 | PC.NURSE ---
Patient was assisted to the restroom at 2320 to void and complains of dizziness upon ambulation. She was assisted by myself and the Saul ESCALANTE with a front wheeled walker. Upon returning to the bed, vitals were taken and oxygen saturation was at 92% on room air. 2 Liters of oxygen placed, oxygen saturation 96%. Patient stated the dizziness is better, once back into the bed.
[2019-12-30] MEDS: ONDANSETRON 4 MG/2 ML INJ IV ×6 (00:29→22:21)
[2019-12-30] MEDS: SODIUM CHLORIDE 0.9% 1,000 ML 75 ML IV ×2 (00:29→18:18)
[2019-12-30 05:40] LABS: Add Manual Diff / Slide Review NO; Basophils Absolute Auto 100 /uL (0-100); Basophils Percent Auto 0.8 % (0-2); Eosinophils Absolute Auto 100 /uL (0-450); Eosinophils Percent Auto 1.3 % (2-4); Hematocrit 30.6 % (36-46); Hemoglobin 9.3 g/dL (12.0-16.0); Lymphocytes Absolute Auto 1400 /uL (1100-4500); Lymphocytes Percent Auto 15.5 % (25-40); Mean Corpuscular HGB Conc 30.3 % (30-36); Mean Corpuscular Hemoglobin 21.4 PG (26-34); Mean Corpuscular Volume 70.6 fL (80-100); Monocytes Absolute Auto 800 /uL (0-900); Monocytes Percent Auto 9.4 % (3-14); Neutrophils Absolute Auto 6600 /uL (1500-7000); Platelet Count 361 X10^3/uL (150-400); Red Blood Cell Count 4.33 X10^6/uL (4.0-5.2); Red Cell Distribution Width 22.3 % (11.6-14.8); White Blood Cell Count 9.1 X10^3/uL (4.5-11.0)
[2019-12-30 05:43] LABS: INR 2.7 (0.9-1.3); Prothrombin Time 30.2 SECONDS (10.1-12.7)
[2019-12-30 05:47] LABS: BUN Creatinine Ratio 21.4 (6-22); Blood Urea Nitrogen 30 mg/dL (7-17); Calcium 8.7 mg/dL (8.4-10.2); Carbon Dioxide 31 mmol/L (22-32); Chloride 105 mmol/L (98-107); Cholesterol 116 mg/dL (140-199); Estimated Glomerular Filt Rate 36.7 mL/min (>60); Glucose 93 mg/dL (80-110); HDL Cholesterol 36 mg/dL (40-60); HEMOLYSIS < 15 (0-50); LDL Cholesterol Calculated 56 mg/dL (<100); Magnesium 2.3 mg/dL (1.6-2.3); Potassium 3.9 mmol/L (3.4-5.1); Sodium 142 mmol/L (137-145); Triglycerides 122 mg/dL (35-150)
[2019-12-30 05:53] LABS: HEMOLYSIS < 15 (0-50); Iron 27 ug/dL (37-170)
[2019-12-30 06:03] LABS: Percent Iron Saturation 7 % (15-50); Total Iron Binding Capacity 394 ug/dL (265-497); Transferrin 329 mg/dL (206-381)
[2019-12-30 06:06] LABS: Hemoglobin A1C% w Est Avg Glu 5.9 % (4.0-6.0)
[2019-12-30] MEDS: LEVOTHYROXINE 50 MCG TABLET PO (06:11)
[2019-12-30 06:27] LABS: TSH w/ Reflex to FT4 5.66 uIU/mL (0.47-4.68)
[2019-12-30 07:01] LABS: Free T4, Direct Thyroxine 0.99 ng/dL (0.78-2.19)
[2019-12-30 07:02] LABS: Anisocytosis 2+
[2019-12-30] MEDS: CALCIUM CARB/VIT D3 500/200 TABLET 1 EACH PO (08:41)
[2019-12-30] MEDS: allopurinoL 300 MG TABLET PO (08:41)
[2019-12-30] MEDS: ASCORBIC ACID 500 MG TABLET PO (08:42)
[2019-12-30] MEDS: FLUoxetine 20 MG CAPSULE PO (08:42)
[2019-12-30] MEDS: CYANOCOBALAMIN (VITAMIN B-12) 500 MCG TABLET 1000 MCG PO (08:42)
[2019-12-30] MEDS: FUROSEMIDE 20 MG TABLET 60 MG PO (08:42)
[2019-12-30] MEDS: METOPROLOL ER 50 MG TABLET 100 MG PO ×2 (08:44→19:28)
[2019-12-30] MEDS: FERROUS SULFATE 325 MG TABLET PO (08:46)
--- NOTE | 2019-12-30 10:58 | PC.NURSE ---
Patient down to MRI now. She denies dizziness at rest but when she is up ambulating, this is when it starts. Patient given zofran for nausea and this has been helpful for her. Skin with some bruising to her prince otherwise skin is clear. BS cta and pt is on RA. She does wear oxygen at night.
--- NOTE | 2019-12-30 12:29 | CM.DANOTE ---
Addendum entered by Ellie Dailey LPN 12/30/19 12:50: Followed up with pt to obtain more specifics: She confirms her daughter Sybil lives in [place] although they do speak daily by phone. Her granddaugher Anisa Matta lives in the same apt complex that pt does but she does not drive. She also has not been available to help due to the COVID Stay at Home guidelines. Pt's sister Domenica Doran lives in [place] and she or pt's son will likely be the one who takes pt home at d/c. POA is shared by pt's sister Domenica, daughter Sybil and her son Stanley/Escobar Day. Original Note: Discharge Planning/Care Management DCP: assessment: case received, EMR reviewed and discussed in Team Rounds. Met now with pt. Introduced self and role. Pt is found sitting in bed, having just finished her lunch. Pt is a 74 year old female who admitted yesterday evening to care of hospitalist team. Payer: Medicare and [facility] Admission status: OBS PCP: Julien Tyler. PT and OT have been ordered. A check in with them now shows that pt was off the unit earlier for an MRI and they will be seeing her this afternoon. Pt confirms she lives alone. Has been for 2 years. (will alert [facility] to update the demographic information). She describes herself as functionally independent in the community without an assistive device. Drives. Pt has a history of several strokes with reported R parathesia and mild dysarthria and Dr. Leon noted his concern re a possible new posterior infarct. Full dx and POC are in process and will know more when therapy team is able to see pt. P: DCP team will be following. Pt lists her primary contact as her daughter Sybil Love: [phone]. CM Discharge Assessment Start: 12/30/19 12:25 Freq: Status: Active Protocol: Document 12/30/19 12:26 ITV (Rec: 12/30/19 12:29 ITV [id number]) Discharge Planning Assessment Advance Directives? No History Provided By Patient,Medical Record Prior Living Arrangements Apartment/Condo Household Members none Independent with ADL's Yes Is patient alert and oriented? Yes DME Already Rented / Owned FWW / Walker,Cane Comment used in the past, currently uses no assistive devices. Review Status In Process
--- NOTE | 2019-12-30 13:29 | PT.IIE ---
Physical Therapy Inpatient Evaluation/Re-Eval M1 PT/OT-IP Prior Functional Status Start: 12/30/19 14:34 Freq: NEEDED Status: Active Protocol: Document 12/30/19 13:29 AB (Rec: 12/30/19 14:50 AB [id number]) Medical Review Prior Functional Status Medical History Reviewed Yes Communication able to make needs known; a little slowness in speech Mobility and Gait pt stated that she is independent with all mobilities and ambulation without AD and was is still able to drive Social History Household Members none Living Arrangements Apartment/Condo Number of Floors (Floors) One Floor Number of Stairs To Enter/Railing? has 7 steps with bilateral rails to enter her apartment Home Environment High Toilet,Tub/Shower Home Equipment Front Wheel Walker Additional Social History Comment pt stated that she takes a bath and not a shower and able to go down and back up on her knees/hands from the tub M2 PT-IP Current Condition Start: 12/30/19 14:34 Freq: NEEDED Status: Active Protocol: Document 12/30/19 13:29 AB (Rec: 12/30/19 14:50 AB [id number]) Physical Therapy Current Condition Current Condition Evaluation Date 12/30/19 Treatment Diagnosis dizziness; difficulty in walking Onset Date 12/29/19 M3 PT-IP Subjective Start: 12/30/19 14:34 Freq: NEEDED Status: Active Protocol: Document 12/30/19 13:29 AB (Rec: 12/30/19 14:50 AB [id number]) Subjective Physical Therapy Visit Type Type Initial Evaluation Visit Start Time 13:29 Visit Stop Time 13:46 Total Visit Minutes 17 Number of GROUP LEADER Visits 0 Physical Therapy Visit Comments Patient Comments pt requesting to use the toilet M4 PT-IP Mobility and Gait Start: 12/30/19 14:34 Freq: NEEDED Status: Active Protocol: Document 12/30/19 13:29 AB (Rec: 12/30/19 14:50 AB [id number]) PT-Bed Mobility Assessment Supine to Sit Supine to Sit Standby Assistance Sit to Supine Sit to Supine Independent PT-Transfer Assessment Sit to and From Stand Sit to and from Stand Contact Guard Assistance,1 Person Assistance,Use of Upper Extremities Equipment Transfer Assistive Device Gait Belt,Front Wheeled Walker Orthotic/Prosthetic Devices or Brace: No Transfers Transfer Destination Toilet Transfer Technique ambulated using FWW Transfer Ability Level of Assist Contact Guard Assistance,1 Person Assistance,Use of Upper Extremities Comments Mobility Comments pt requesting to use the toilet and completed supine to sit SBA. pt c/o dizziness. pt completed sit to stand CGA and ambulated to the toilet using FWW CGA. pt presents with unsteady discontinuous steps. pt was able to maintain standing using FWW for support CGA while assisted with brief management. pt requested to go back to bed after toileting and unable to tolerate further activity. completed sit to supine I and able to position in bed. Left pt with OT. Gait Assessment Gait Gait Assistance Required: Contact Guard Assist Distance (Feet) 12 Able to Maintain Weight Bearing Status Yes During Gait Assistive Devices Assistive Device Gait Belt,Front Wheeled Walker Orthotic/Prosthetic Devices or Brace: No Gait Deviations General Gait Pattern Antalgic,Decreased Stride Length,Decreased Feet Clearance Factors Limiting Gait Function Factors Limiting Gait Function Decreased Activity Tolerance, Decreased Strength,Poor Balance,Poor Safety Awareness Comments Gait Comments pls refer to mobility section for details PT-Balance Assessment Sitting Balance and Reactions Static Sitting Balance Ability Good Dynamic Sitting Balance Ability Good Standing Balance and Reactions Static Standing Balance Ability Fair Dynamic Standing Balance Ability Fair Device Used FWW M5 PT-IP Objective Assessments Start: 12/30/19 14:34 Freq: NEEDED Status: Active Protocol: Document 12/30/19 13:29 AB (Rec: 12/30/19 14:50 AB [id number]) Orientation Orientation/Cognition Level of Alertness Alert Orientation Name Safety Awareness Decreased Safety Awareness Gross Range of Motion Lower Extremity ROM Assessment Within Functional Limits Strength Lower Extremity Strength Assessment Within Functional Limits Muscle Tone Muscle Tone WNL Yes M6 PT-IP Treatment Start: 12/30/19 14:34 Freq: NEEDED Status: Active Protocol: Document 12/30/19 13:29 AB (Rec: 12/30/19 14:50 AB [id number]) Physical Therapy Treatment Education Education Provided Safety M7 PT-IP Assessment and Plan Start: 12/30/19 14:34 Freq: NEEDED Status: Active Protocol: Document 12/30/19 13:29 AB (Rec: 12/30/19 14:50 AB [id number]) PT Summary Assessment and Plan Potential Rehabilitation Potential Fair Status of Condition at Evaluation Evolving Summary Impairments Pain,ROM,Strength,Balance, Coordination,Cognition,Bed Mobility,Transfers,Gait, Activity Tolerance Assessment Summary pt requiring CGA with mobility but unable to tolerate much activity due to c/o dizziness which increases with mobility. Pt lives alone and will need assistance at home. informed pt and pt stated that she does not want assistance and hopes that they manage the dizziness and she can go home by herself. d/c plan depends on progress and will require ongoing assessment. Goals Bed Mobility Goal Independent Transfer Goal Independent,Front Wheeled Walker Gait Goal Independent,Front Wheel Walker Gait Distance 200 Other Goals improve ambulation 250 ft SBA without AD up/down 7 steps with bilateral rails SBA Days to Meet Goals 5 Frequency of Treatment Frequency Of Treatment Once a Day Treatment Plan Physical Therapy Treatment Plan Bed Mobility Training,Transfer Training,Gait Training, Therapeutic Exercise,Balance Retraining,Discharge Planning, Neuromuscular Re-ed, Coordination Retraining Recommendations To Nursing Amount of Assist Needed 1 Person Assist Discharge Recommendations PT Discharge Recommendations Home with Assistance,Home Health,SNF Rehab Other Discharge Recommendations depending on progress: SNF vs home with assistance and HHPT Transportation Needs at Discharge Private Vehicle,Wheelchair/ Cabulance
--- NOTE | 2019-12-30 13:29 | PT.IIE ---
Physical Therapy Inpatient Evaluation/Re-Eval M1 PT/OT-IP Prior Functional Status Start: 12/30/19 14:34 Freq: NEEDED Status: Active Protocol: Document 12/30/19 13:29 AB (Rec: 12/30/19 14:50 AB [id number]) Medical Review Prior Functional Status Medical History Reviewed Yes Communication able to make needs known; a little slowness in speech Mobility and Gait pt stated that she is independent with all mobilities and ambulation without AD and was is still able to drive Social History Household Members none Living Arrangements Apartment/Condo Number of Floors (Floors) One Floor Number of Stairs To Enter/Railing? has 7 steps with bilateral rails to enter her apartment Home Environment High Toilet,Tub/Shower Home Equipment Front Wheel Walker Additional Social History Comment pt stated that she takes a bath and not a shower and able to go down and back up on her knees/hands from the tub M2 PT-IP Current Condition Start: 12/30/19 14:34 Freq: NEEDED Status: Active Protocol: Document 12/30/19 13:29 AB (Rec: 12/30/19 14:50 AB [id number]) Physical Therapy Current Condition Current Condition Evaluation Date 12/30/19 Treatment Diagnosis dizziness; difficulty in walking Onset Date 12/29/19 M3 PT-IP Subjective Start: 12/30/19 14:34 Freq: NEEDED Status: Active Protocol: Document 12/30/19 13:29 AB (Rec: 12/30/19 14:50 AB [id number]) Subjective Physical Therapy Visit Type Type Initial Evaluation Visit Start Time 13:29 Visit Stop Time 13:46 Total Visit Minutes 17 Number of CREEL HAND Visits 0 Physical Therapy Visit Comments Patient Comments pt requesting to use the toilet M4 PT-IP Mobility and Gait Start: 12/30/19 14:34 Freq: NEEDED Status: Active Protocol: Document 12/30/19 13:29 AB (Rec: 12/30/19 14:50 AB [id number]) PT-Bed Mobility Assessment Supine to Sit Supine to Sit Standby Assistance Sit to Supine Sit to Supine Independent PT-Transfer Assessment Sit to and From Stand Sit to and from Stand Contact Guard Assistance,1 Person Assistance,Use of Upper Extremities Equipment Transfer Assistive Device Gait Belt,Front Wheeled Walker Orthotic/Prosthetic Devices or Brace: No Transfers Transfer Destination Toilet Transfer Technique ambulated using FWW Transfer Ability Level of Assist Contact Guard Assistance,1 Person Assistance,Use of Upper Extremities Comments Mobility Comments pt requesting to use the toilet and completed supine to sit SBA. pt c/o dizziness. pt completed sit to stand CGA and ambulated to the toilet using FWW CGA. pt presents with unsteady discontinuous steps. pt was able to maintain standing using FWW for support CGA while assisted with brief management. pt requested to go back to bed after toileting and unable to tolerate further activity. completed sit to supine I and able to position in bed. Left pt with OT. Gait Assessment Gait Gait Assistance Required: Contact Guard Assist Distance (Feet) 12 Able to Maintain Weight Bearing Status Yes During Gait Assistive Devices Assistive Device Gait Belt,Front Wheeled Walker Orthotic/Prosthetic Devices or Brace: No Gait Deviations General Gait Pattern Antalgic,Decreased Stride Length,Decreased Feet Clearance Factors Limiting Gait Function Factors Limiting Gait Function Decreased Activity Tolerance, Decreased Strength,Poor Balance,Poor Safety Awareness Comments Gait Comments pls refer to mobility section for details PT-Balance Assessment Sitting Balance and Reactions Static Sitting Balance Ability Good Dynamic Sitting Balance Ability Good Standing Balance and Reactions Static Standing Balance Ability Fair Dynamic Standing Balance Ability Fair Device Used FWW M5 PT-IP Objective Assessments Start: 12/30/19 14:34 Freq: NEEDED Status: Active Protocol: Document 12/30/19 13:29 AB (Rec: 12/30/19 14:50 AB [id number]) Orientation Orientation/Cognition Level of Alertness Alert Orientation Name Safety Awareness Decreased Safety Awareness Gross Range of Motion Lower Extremity ROM Assessment Within Functional Limits Strength Lower Extremity Strength Assessment Within Functional Limits Muscle Tone Muscle Tone WNL Yes M6 PT-IP Treatment Start: 12/30/19 14:34 Freq: NEEDED Status: Active Protocol: Document 12/30/19 13:29 AB (Rec: 12/30/19 14:50 AB [id number]) Physical Therapy Treatment Education Education Provided Safety M7 PT-IP Assessment and Plan Start: 12/30/19 14:34 Freq: NEEDED Status: Active Protocol: Document 12/30/19 13:29 AB (Rec: 12/30/19 14:50 AB [id number]) PT Summary Assessment and Plan Potential Rehabilitation Potential Fair Status of Condition at Evaluation Evolving Summary Impairments Pain,ROM,Strength,Balance, Coordination,Cognition,Bed Mobility,Transfers,Gait, Activity Tolerance Assessment Summary pt requiring CGA with mobility but unable to tolerate much activity due to c/o dizziness which increases with mobility. Pt lives alone and will need assistance at home. informed pt and pt stated that she does not want assistance and hopes that they manage the dizziness and she can go home by herself. d/c plan depends on progress and will require ongoing assessment. Goals Bed Mobility Goal Independent Transfer Goal Independent,Front Wheeled Walker Gait Goal Independent,Front Wheel Walker Gait Distance 200 Other Goals improve ambulation 250 ft SBA without AD Days to Meet Goals 5 Frequency of Treatment Frequency Of Treatment Once a Day Treatment Plan Physical Therapy Treatment Plan Bed Mobility Training,Transfer Training,Gait Training, Therapeutic Exercise,Balance Retraining,Discharge Planning, Neuromuscular Re-ed, Coordination Retraining Recommendations To Nursing Amount of Assist Needed 1 Person Assist Discharge Recommendations PT Discharge Recommendations Home with Assistance,Home Health,SNF Rehab Other Discharge Recommendations depending on progress: SNF vs home with assistance and HHPT Transportation Needs at Discharge Private Vehicle,Wheelchair/ Cabulance
--- NOTE | 2019-12-30 13:52 | OT.IP.EVAL ---
Occupational Therapy Inpatient Evaluation/Re-Eval M1 PT/OT-IP Prior Functional Status Start: 12/30/19 16:20 Freq: NEEDED Status: Active Protocol: Document 12/30/19 16:22 [facility] (Rec: 12/30/19 16:52 [facility] [id number]) Medical Review Prior Functional Status Medical History Reviewed Yes Communication able to make needs known; a little slowness in speech Mobility and Gait pt stated that she is independent with all mobilities and ambulation without AD and was is still able to drive Activities of Daily Living and IADL's Pt states prior completely with ADl's, IADL's and drives. Social History Household Members none Living Arrangements Apartment/Condo Number of Floors (Floors) One Floor Number of Stairs To Enter/Railing? has 7 steps with bilateral rails to enter her apartment Home Environment High Toilet,Tub/Shower Home Equipment Front Wheel Walker Additional Social History Comment pt stated that she takes a bath and not a shower and able to go down and back up on her knees/hands from the tub M2 OT-IP Current Condition Start: 12/30/19 16:20 Freq: Status: Active Protocol: Document 12/30/19 16:22 [facility] (Rec: 12/30/19 16:52 [facility] [id number]) Occupational Therapy Current Condition Current Condition Evaluation Date 12/30/19 Treatment Diagnosis Dizziness Diagnosis Onset Date 12/29/19 Weight Bearing Status Weight Bearing Status Weight Bear as Tolerated M3 OT- IP Subjective and Pain Start: 12/30/19 16:20 Freq: Status: Active Protocol: Document 12/30/19 16:22 [facility] (Rec: 12/30/19 16:52 [facility] [id number]) OT- Subjective Occupational Therapy Visit Type Type Initial Evaluation Visit Start Time 13:33 Visit Stop Time 13:52 Total Visit Minutes 19 Occupational Therapy Visit Comments Patient Comments Pt walking to the bathroom with PT when therapist came in . Patient/Caregiver Goals Pt wanting to go home. OT Pain Assessment Pain When Pain Assessed At Rest Pain Present Pain Present Denied Pain M4 OT- IP ADL's Start: 12/30/19 16:20 Freq: Status: Active Protocol: Document 12/30/19 16:22 [facility] (Rec: 12/30/19 16:52 [facility] [id number]) OT [id number] Comments OT Self-Feeding Comments Not at meal time. OT ADL-Grooming Comments OT Grooming Comments Pt too dizzy to attempt , able to wash her hands after set- up of wash cloth. OT ADL-Oral Care Comments Oral Care Comments Not performed as pt feeling too dizzy to attempt. OT ADL-Dressing General Eval Lower Body Dressing Ability Standby Assistance Comments OT Dressing Comments Pt able to pull down and up underwear on her own during toileting needs. OT ADL-Toileting General Evaluation Toileting Ability Standby Assistance Comments OT Toileting Comments SBA for safety and to hold IV pole. M5 OT- IP IADL's Start: 12/30/19 16:20 Freq: Status: Active Protocol: Document 12/30/19 16:22 [facility] (Rec: 12/30/19 16:52 [facility] [id number]) OT-Instrumental Activities of Daily Living Medication Management Medication Management No Deficits Identified Money Management Money Management No Deficits Identified Meal Preparation Meal Preparation Comments At this time, pt would need assist due to unable to tolerate standing for long due to her dizziness. Magistrate Judge Magistrate Judge Comments At this time, pt would need assist due to unable to tolerate standing for long due to her dizziness. M6 OT- IP Functional Cognition Start: 12/30/19 16:20 Freq: Status: Active Protocol: Document 12/30/19 16:22 [facility] (Rec: 12/30/19 16:52 [facility] [id number]) Cognitive Factors Limiting Selfcare Function Cognitive Ability Level of Alertness Alert Patient Orientation Name,Age,Birthday,Month,Date, Year,Day of Week,Place, Situation Attention Span Ability Capable of Focused Attention, Capable of Sustained Attention Ability to Follow Commands Able to Follow Multi-Step Commands Cognitive Comments Cognitive Assessment Comments Pt states feels like she is having more difficulty with articulation of speech. Prior pt has history of CVA and states has mild dysarthria. Pt wanting to see if she is better tomorrow before considering having [employer]. OT- Vision and Hearing OT- Hearing Assessment OT- Hearing Assessment WFL OT- Vision Assessment Visual Acuity Glasses All The Time Vision Assessment Comments Noted nystagmus when scanning. M7 OT- IP Mobility and Balance Start: 12/30/19 16:20 Freq: Status: Active Protocol: Document 12/30/19 16:22 [facility] (Rec: 12/30/19 16:52 [facility] [id number]) OT- Bed Mobility Assessment Supine to Sit Supine to Sit Assist Standby Assistance Sit to Supine Sit to Supine Assist Independent OT-Transfer Assessment Sit to and From Stand Sit to and from Stand Contact Guard Assistance Transfers Transfer Ability Standby Assistance,Contact Guard Assistance Technique Transfer Destination Bed,Toilet Devices Transfer Assistive Devices Gait Belt,Front Wheeled Walker Comments Mobility Comments CGA to SBA with FWW as pt unsteady due to feeling dizzy. OT- Balance Assessment Sitting Balance and Reactions Static Sitting Balance Ability Normal Dynamic Sitting Balance Ability Good Standing Balance and Reactions Static Standing Balance Ability Fair M8 OT- IP Objective Assessments Start: 12/30/19 16:20 Freq: Status: Active Protocol: Document 12/30/19 16:22 [facility] (Rec: 12/30/19 16:52 [facility] [id number]) OT Gross Range of Motion Upper Extremity Range of Motion Assessment Within Functional Limits OT Strength Upper Extremity Strength Assessment Within Functional Limits M9 OT- IP Assessment and Plan Start: 12/30/19 16:20 Freq: Status: Active Protocol: Document 12/30/19 16:22 [facility] (Rec: 12/30/19 16:52 [facility] [id number]) OT Summary Assessment and Plan Potential Rehabilitation Potential Good Analytic Complexity at Evaluation Low Summary OT Impairments Functional Mobility,Grooming, Dressing,Toileting,Bathing, Toilet Transfers,Shower Transfers,Activity Tolerance Progress Towards Goals Slow Progress due to Medical Issues Assessment Summary Pt low complexity and main barrier is dizziness. Pt only able to tolerate getting to the toilet and back at this time due to feeling too dizzy. If pt stil dizzy upon discharge, recommend pt homoe with assist. Pt did mention as last resort could stay wit her son. Goals Grooming Goal Independent Dressing Goal Independent Toileting Goal Independent Bathing Goal Independent Toilet Transfer Goal Independent Shower Transfer Goal Independent Days to Meet Goals 5 Frequency of Treatment Frequency Of Treatment Once a Day Treatment Plan OT Treatment Plan ADL Training,Functional Mobility,Patient/Family Education,Discharge Planning Other Treatment Recommendations and Next shower if able to tolerate Treatment Focus Discharge Recommendations OT Discharge Recommendations Home with Assistance,SNF Rehab Other Discharge Recommendations Pending medical progress, may need SNF, as pt lives alone and if dizziness not resolved would not be safe to live alone. Transportation Needs at Discharge Private Vehicle
--- NOTE | 2019-12-30 13:56 | CM.DPNOTE ---
Kalina reviewed with patient. Signature obtained
--- NOTE | 2019-12-30 15:07 | P.PN_ITS ---
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 She is seen for follow-up today. MRI was negative for a posterior stroke, or acute stroke of any kind. Patient complains of nausea although improved somewhat today today she got up with physical therapy went to use the bathroom and had to sit back down very quickly due to developing nausea. Patient states that it is worse prone, and also worse with urination today. She has spent a large portion of today in her bed due to the nausea as she gets dizzy whenever moving any further than the bathroom. Exam Vital Signs (past 8 hours): - 12/30/19 08:00 12/30/19 08:26 12/30/19 12:00 Temperature 98.1 F 97.8 F Pulse Rate 69 82 Respiratory Rate 18 18 Blood Pressure 133/69 136/78 Pulse Oximetry 96 96 94 Oxygen Delivery Method Nasal Cannula Oxygen Flow Rate 0 Narrative Exam Narrative: GENERAL APPEARANCE: Well developed, well nourished, in no acute distress. Eyes closed frequently. SKIN: Inspection of the skin reveals no rashes, ulcerations or petechiae. HEENT: Normocephalic atraumatic, extraocular muscles are intact, oropharynx is clear and mucous membranes are moist, neck is supple without adenopathy NECK: Supple and symmetric. There was no thyroid enlargement, and no tenderness, or masses were felt. CHEST: Normal AP diameter and normal contour without any kyphoscoliosis. LUNGS: Auscultation of the lungs revealed no wheezes, rhonchi, or rales. CARDIOVASCULAR: Irregularly irregular with normal rate. No murmurs rubs or gallops. ABDOMEN: Soft and nontender with normal bowel sounds. No ascites was noted. MUSCULOSKELETAL: There was no tenderness or effusions noted. Muscle strength and tone were normal. EXTREMITIES: No cyanosis, clubbing or edema. NEUROLOGIC: Alert and oriented x 3. Normal affect. Strength is +5/5 in the Upper Extremities and Lower Extremities Bilaterally. Sensation to touch was asymmetric at the patient's baseline. Finger to nose is accurate and smooth. Heel to prince unremarkable. Cranial nerves 2-12 grossly intact bilaterally. No nystagmus noted. Objective Labs Result Diagrams: 12/30/19 05:20 12/30/19 05:20 Labs: Laboratory Results - last 24 hr 12/29/19 12/30/19 12/30/19 19:03 05:20 05:20 WBC 9.1 RBC 4.33 Hgb 9.3 L Hct 30.6 L MCV 70.6 L MCH 21.4 L MCHC 30.3 RDW 22.3 H Plt Count 361 Neut % (Auto) 73.0 Lymph % (Auto) 15.5 L [place] % (Auto) 9.4 Eos % (Auto) 1.3 L Baso % (Auto) 0.8 Neut # (Auto) 6600 Lymph # (Auto) 1400 [place] # (Auto) 800 Eos # (Auto) 100 Baso # (Auto) 100 RBC Morphology Not Reportable Anisocytosis 2+ H PT 30.2 H INR 2.7 H Sodium Potassium Chloride Carbon Dioxide BUN Creatinine Estimated GFR BUN/Creatinine Ratio Glucose Hemoglobin A1c Calcium Magnesium Iron TIBC % Saturation Transferrin Triglycerides Cholesterol LDL Cholesterol, Calc HDL Cholesterol TSH Free T4 Urine Color Yellow Urine Appearance Clear Urine pH 6.0 Ur Specific [place] 1.015 Urine Protein Negative Urine Glucose (UA) Negative Urine Ketones Negative Urine Occult Blood Negative Urine Nitrate Negative Urine Bilirubin Negative Urine Urobilinogen 0.2 Ur Leukocyte Esterase 1+ H Urine RBC 0-1/hpf Urine WBC 5-10/hpf H Ur Squamous Epith Cells 0-1 /hpf Urine Bacteria None seen Hyaline Casts 0-1/lpf Ur Culture Indicated? Specimen cultured 12/30/19 12/30/19 12/30/19 05:20 05:20 05:20 WBC RBC Hgb Hct MCV MCH MCHC RDW Plt Count Neut % (Auto) Lymph % (Auto) [place] % (Auto) Eos % (Auto) Baso % (Auto) Neut # (Auto) Lymph # (Auto) [place] # (Auto) Eos # (Auto) Baso # (Auto) RBC Morphology Anisocytosis PT INR Sodium 142 Potassium 3.9 Chloride 105 Carbon Dioxide 31 BUN 30 H Creatinine 1.40 H Estimated GFR 36.7 L BUN/Creatinine Ratio 21.4 Glucose 93 Hemoglobin A1c 5.9 Calcium 8.7 Magnesium 2.3 Iron TIBC % Saturation Transferrin Triglycerides 122 Cholesterol 116 L LDL Cholesterol, Calc 56 HDL Cholesterol 36 L TSH 5.66 H Free T4 0.99 Urine Color Urine Appearance Urine pH Ur Specific [place] Urine Protein Urine Glucose (UA) Urine Ketones Urine Occult Blood Urine Nitrate Urine Bilirubin Urine Urobilinogen Ur Leukocyte Esterase Urine RBC Urine WBC Ur Squamous Epith Cells Urine Bacteria Hyaline Casts Ur Culture Indicated? 12/30/19 05:20 WBC RBC Hgb Hct MCV MCH MCHC RDW Plt Count Neut % (Auto) Lymph % (Auto) [place] % (Auto) Eos % (Auto) Baso % (Auto) Neut # (Auto) Lymph # (Auto) [place] # (Auto) Eos # (Auto) Baso # (Auto) RBC Morphology Anisocytosis PT INR Sodium Potassium Chloride Carbon Dioxide BUN Creatinine Estimated GFR BUN/Creatinine Ratio Glucose Hemoglobin A1c Calcium Magnesium Iron 27 L TIBC 394 % Saturation 7 L Transferrin 329 Triglycerides Cholesterol LDL Cholesterol, Calc HDL Cholesterol TSH Free T4 Urine Color Urine Appearance Urine pH Ur Specific [place] Urine Protein Urine Glucose (UA) Urine Ketones Urine Occult Blood Urine Nitrate Urine Bilirubin Urine Urobilinogen Ur Leukocyte Esterase Urine RBC Urine WBC Ur Squamous Epith Cells Urine Bacteria Hyaline Casts Ur Culture Indicated? Assessment & Plan Assessment & Plan narrative: Sybil Wadsworth is a 74 y/o F with PMH of afib on coumadin , Hypertension, hyperlipidemia, previous CVA x3 (ischemic and hemorrhagic) with residual right-sided whole-body altered sensation as well as mild dysarthria. She has presented with worsening dizziness over the past week, worse over this past weekend to the point where she is demonstrating a pers istent inability to ambulate secondary to her dizziness. 1. Dizziness, acute, present on admission -posterior circulation CVA was ruled out by MRI. Consider BPPV although no evidence on exam of this. Doubt acute cystitis would be the etiology of this dizziness. -continue physical and occupational therapies - continue meclizine and zofran as needed -MR stroke today: No findings of acute or subacute infarction. Remote left frontal lobe infarction.No masses or abnormal enhancement can be seen. -TTE was unremarkable within normal ejection fraction and no significant valv ular disease. - patient still with a persistent inability to ambulate seconary to her dizziness. 2. atrial fibrillation on anticoagulation, unknown type - continue home medications including warfarin 5 mg daily (2.5 on Sunday) and metoprolol. - follow INR daily. 3. HTN - continue home medications 4. acute cystitis, present on admission - continue ceftriaxone x3 days, today is day 2 of 3. -urine culture with no growth 5. HLD - continue home statin 6. History of previous CVA, both ischemic and hemorrhagic. Code: Full, has POLST form at her house. Surrogate decision maker is the daught er. Dispo: Change to inpatient status today given persistent inability to ambulate secondary to her dizziness. Will see
[2019-12-30] MEDS: FUROSEMIDE 20 MG TABLET PO (19:28)
[2019-12-30] MEDS: WARFARIN 5 MG TABLET PO (19:28)
[2019-12-30] MEDS: GABAPENTIN 300 MG CAPSULE 900 MG PO (19:30)
[2019-12-30] MEDS: ATORVASTATIN 20 MG TABLET PO (19:30)
[2019-12-30] MEDS: CEFTRIAXONE 1 GM/50 ML FROZ.PIGGY IV (19:41)
[2019-12-31] VITALS (11 sets, daily range): BP systolic 89–151; BP diastolic 43–90; PULSE 62–79; RESP 16–18; TEMP 36.3–37.2; O2SAT 92–96
--- NOTE | 2019-12-31 00:18 | PC.NURSE ---
Evening Shift Pt. continues to report dizziness, but verbalizes overall improvement throughout shift. Ambulated to bathroom with walker, gait belt, and one person assist; patient continually reminded to keep eyes open. Denies pain. VSS. Mild expressive aphasia consistent with patient's baseline.
[2019-12-31] MEDS: ONDANSETRON 4 MG/2 ML INJ IV (01:14)
[2019-12-31] MEDS: SODIUM CHLORIDE 0.9% 500 ML IV (01:14)
[2019-12-31] MEDS: MECLIZINE HCL 12.5 MG TABLET 25 MG PO (04:29)
[2019-12-31] MEDS: LEVOTHYROXINE 50 MCG TABLET PO (04:36)
[2019-12-31 06:15] LABS: Basophils Absolute Auto 100 /uL (0-100); Eosinophils Absolute Auto 200 /uL (0-450); Eosinophils Percent Auto 2.4 % (2-4); Hematocrit 30.6 % (36-46); Hemoglobin 9.3 g/dL (12.0-16.0); INR 2.6 (0.9-1.3); Lymphocytes Absolute Auto 1400 /uL (1100-4500); Lymphocytes Percent Auto 16.9 % (25-40); Mean Corpuscular HGB Conc 30.4 % (30-36); Mean Corpuscular Hemoglobin 21.6 PG (26-34); Mean Corpuscular Volume 71.1 fL (80-100); Monocytes Absolute Auto 800 /uL (0-900); Monocytes Percent Auto 10.1 % (3-14); Neutrophils Absolute Auto 5600 /uL (1500-7000); Neutrophils Percent Auto 69.6 % (50-75); Platelet Count 357 X10^3/uL (150-400); Prothrombin Time 29.3 SECONDS (10.1-12.7); Red Cell Distribution Width 22.7 % (11.6-14.8)
[2019-12-31 06:18] LABS: Add Manual Diff / Slide Review SLIDE REVIEW
[2019-12-31 06:24] LABS: BUN Creatinine Ratio 16.7 (6-22); Blood Urea Nitrogen 23 mg/dL (7-17); Calcium 8.8 mg/dL (8.4-10.2); Carbon Dioxide 31 mmol/L (22-32); Chloride 105 mmol/L (98-107); Estimated Glomerular Filt Rate 37.3 mL/min (>60); Glucose 94 mg/dL (80-110); HEMOLYSIS < 15 (0-50); Magnesium 1.9 mg/dL (1.6-2.3); Potassium 3.6 mmol/L (3.4-5.1); Sodium 141 mmol/L (137-145)
[2019-12-31 07:07] LABS: Anisocytosis 2+; Polychromasia 1+
[2019-12-31] MEDS: allopurinoL 300 MG TABLET PO (09:56)
[2019-12-31] MEDS: CYANOCOBALAMIN (VITAMIN B-12) 500 MCG TABLET 1000 MCG PO (09:56)
[2019-12-31] MEDS: ASCORBIC ACID 500 MG TABLET PO (09:56)
[2019-12-31] MEDS: FLUoxetine 20 MG CAPSULE PO (09:56)
[2019-12-31] MEDS: CALCIUM CARB/VIT D3 500/200 TABLET 1 EACH PO (09:57)
[2019-12-31] MEDS: FERROUS SULFATE 325 MG TABLET PO (10:00)
--- NOTE | 2019-12-31 12:21 | PT.IPTN ---
Physical Therapy Treatment Note M2 PT-IP Current Condition Start: 12/30/19 14:34 Freq: NEEDED Status: Active Protocol: Document 12/30/19 13:29 AB (Rec: 12/30/19 14:50 AB [id number]) Physical Therapy Current Condition Current Condition Evaluation Date 12/30/19 Treatment Diagnosis dizziness; difficulty in walking Onset Date 12/29/19 M3 PT-IP Subjective Start: 12/30/19 14:34 Freq: NEEDED Status: Active Protocol: Document 12/31/19 11:46 LJ (Rec: 12/31/19 12:21 LJ [email or web address]) Subjective Physical Therapy Visit Type Type Treatment Note Visit Start Time 11:46 Visit Stop Time 12:02 Total Visit Minutes 16 Number of [employer] SAL[employer] REPRESENTATIVE Visits 1 Physical Therapy Visit Comments Patient Comments Pt reports feeling better today. No nausea or dizziness Patient Goals go home M4 PT-IP Mobility and Gait Start: 12/30/19 14:34 Freq: NEEDED Status: Active Protocol: Document 12/31/19 11:46 LJ (Rec: 12/31/19 12:21 LJ [id number]) PT-Bed Mobility Assessment Supine to Sit Supine to Sit Independent Sit to Supine Sit to Supine Independent PT-Transfer Assessment Sit to and From Stand Sit to and from Stand Standby Assistance,Use of Upper Extremities Equipment Transfer Assistive Device None,Gait Belt,Front Wheeled Walker Orthotic/Prosthetic Devices or Brace: No Transfers Transfer Destination Bed Transfer Technique ambulated w/o AD Transfer Ability Level of Assist Standby Assistance,1 Person Assistance,Use of Upper Extremities Comments Mobility Comments Pt resting in bed upon arrival . Performed all bed mobility independently. Initially pt using FWW for sit<>stand but after ambulating in room without AD was able to sit<> stand SBA. Pt not experiencing nausea or dizziness dduring mobility or ambulation. Gait Assessment Gait Gait Assistance Required: Contact Guard Assist Distance (Feet) 50 Able to Maintain Weight Bearing Status Yes During Gait Assistive Devices Assistive Device None,Gait Belt,Front Wheeled Walker Gait Deviations General Gait Pattern Antalgic,Decreased Stride Length,Decreased Feet Clearance Factors Limiting Gait Function Factors Limiting Gait Function Decreased Activity Tolerance, Decreased Strength,Poor Balance,Poor Safety Awareness Comments Gait Comments Pt ambulated around bed x1 with FWW and assist for IV pole. She then ambulated around bed x2 w/o AD. Initially CGA but second lap around bed pt was SBA. Returned back to bed and was able to get into bed independently. M5 PT-IP Objective Assessments Start: 12/30/19 14:34 Freq: NEEDED Status: Active Protocol: Document 12/30/19 13:29 AB (Rec: 12/30/19 14:50 AB [id number]) Orientation Orientation/Cognition Level of Alertness Alert Orientation Name Safety Awareness Decreased Safety Awareness Gross Range of Motion Lower Extremity ROM Assessment Within Functional Limits Strength Lower Extremity Strength Assessment Within Functional Limits Muscle Tone Muscle Tone WNL Yes M6 PT-IP Treatment Start: 12/30/19 14:34 Freq: NEEDED Status: Active Protocol: Document 12/31/19 11:46 LJ (Rec: 12/31/19 12:21 LJ [email or web address]) Physical Therapy Treatment Education Education Provided Safety Other Treatments Other Treatment Performed standing marching M7 PT-IP Assessment and Plan Start: 12/30/19 14:34 Freq: NEEDED Status: Active Protocol: Document 12/31/19 11:46 LJ (Rec: 12/31/19 12:21 LJ [email or web address]) PT Summary Assessment and Plan Potential Rehabilitation Potential Fair Status of Condition at Evaluation Evolving Summary Impairments Pain,ROM,Strength,Balance, Coordination,Cognition,Bed Mobility,Transfers,Gait, Activity Tolerance Assessment Summary Pt independent with bed mobility. She was able to increase ambulation and activity level. She initially used FWW for ambulation but was able to walk around bed x2 without walker and SBA. She did not experience dizziness or nasea. Refused to ambulate iin hallway or attempt stairs. Goals Bed Mobility Goal Independent Transfer Goal Independent,Front Wheeled Walker Gait Goal Independent,Front Wheel Walker Gait Distance 200 Other Goals improve ambulation 250 ft SBA without AD up/down 7 steps with bilateral rails SBA Days to Meet Goals 5 Frequency of Treatment Frequency Of Treatment Once a Day Treatment Plan Physical Therapy Treatment Plan Bed Mobility Training,Transfer Training,Gait Training, Therapeutic Exercise,Balance Retraining,Discharge Planning, Neuromuscular Re-ed, Coordination Retraining Recommendations To Nursing Amount of Assist Needed 1 Person Assist Discharge Recommendations PT Discharge Recommendations Home with Assistance,Home Health,SNF Rehab Other Discharge Recommendations depending on progress: SNF vs home with assistance and HHPT Transportation Needs at Discharge Private Vehicle,Wheelchair/ Cabulance
[2019-12-31] MEDS: SODIUM CHLORIDE 0.9% 1,000 ML 75 ML IV (12:44)
--- NOTE | 2019-12-31 13:26 | CM.DPC ---
DCP Cont: Spoke with patient before contacting daughter, Sybil Love, who resides in [place], [place]. Patient stated, she is feeling better as far as the dizziness goes. Asked her about contacting her daughter, Sybil, with update. She stated, I thought I already told all of you that she can be contacted. Mentioned home health for patient. She stated I don't really think that I need it. She confirmed that her had home health, and she is familiar with the process. She also confirmed that she resides in [place] and has her grand daughter that lives near by to assist her. Spoke to patient's daughter, Sybil. Confirmed that patient lives in a small apartment, and that her grandaughobed lives a couple of units away from her. Daughter was hoping that her mother will get home health nurse to evaluate her medications, but she knows that her mother is a private person. P: DCP to continue to follow and be available for any resources needed. Nuvia Collazo RN/Label Sewer
--- NOTE | 2019-12-31 14:34 | PC.NURSE ---
Patient states that she is doing better this morning. Orthostatic blood pressures all wnl, did hold patients Metoprolol 100mg as her bp was low. Up with 1 pa and she is resting in bed now.
--- NOTE | 2019-12-31 14:38 | OT.IP.TRT ---
Current Diagnoses Dizziness and giddiness (12/30/19) Occupational Therapy Treatment Note M2 OT-IP Current Condition Start: 12/30/19 16:20 Freq: Status: Active Protocol: Document 12/30/19 16:22 [facility] (Rec: 12/30/19 16:52 [facility] [id number]) Occupational Therapy Current Condition Current Condition Evaluation Date 12/30/19 Treatment Diagnosis Dizziness Diagnosis Onset Date 12/29/19 Weight Bearing Status Weight Bearing Status Weight Bear as Tolerated M3 OT- IP Subjective and Pain Start: 12/30/19 16:20 Freq: Status: Active Protocol: Document 12/31/19 14:29 [facility] (Rec: 12/31/19 14:34 [facility] [id number]) OT- Subjective Occupational Therapy Visit Type Type Treatment Note Visit Start Time 14:12 Visit Stop Time 14:00 Occupational Therapy Visit Comments Patient Comments Pt agreeable to get up for OT but not wanting to shower at this time. Patient/Caregiver Goals To go home. OT Pain Assessment Pain When Pain Assessed At Rest Pain Present Pain Present Denied Pain M6 OT- IP Functional Cognition Start: 12/30/19 16:20 Freq: Status: Active Protocol: Document 12/31/19 14:29 [facility] (Rec: 12/31/19 14:34 [facility] [id number]) Cognitive Factors Limiting Selfcare Function Cognitive Comments Cognitive Assessment Comments Pt states feels better today and baseline for articulation. M7 OT- IP Mobility and Balance Start: 12/30/19 16:20 Freq: Status: Active Protocol: Document 12/31/19 14:29 [facility] (Rec: 12/31/19 14:34 [facility] [id number]) OT- Bed Mobility Assessment Supine to Sit Supine to Sit Assist Independent Sit to Supine Sit to Supine Assist Independent OT-Transfer Assessment Sit to and From Stand Sit to and from Stand Standby Assistance Transfers Transfer Ability Standby Assistance Comments Mobility Comments Supine BP 125/76, sitting 134/ 84, standing 127/82, and supine 118/68. Pt not complaining on being dizzy at all today, however needing to widen her stance when standing . Per pt states prior has some balance issues from previous CVA's. Spoke to pt may be best to have her sister stay with her for the first night to be sure pt is back to baseline and able to care of herself for ADl and IADl needs. OT- Balance Assessment Sitting Balance and Reactions Static Sitting Balance Ability Normal Dynamic Sitting Balance Ability Normal Standing Balance and Reactions Static Standing Balance Ability Good M8 OT- IP Objective Assessments Start: 12/30/19 16:20 Freq: Status: Active Protocol: Document 12/30/19 16:22 [facility] (Rec: 12/30/19 16:52 [facility] [id number]) OT Gross Range of Motion Upper Extremity Range of Motion Assessment Within Functional Limits OT Strength Upper Extremity Strength Assessment Within Functional Limits M9 OT- IP Assessment and Plan Start: 12/30/19 16:20 Freq: Status: Active Protocol: Document 12/31/19 14:35 [facility] (Rec: 12/31/19 14:38 [facility] [id number]) OT Summary Assessment and Plan Potential Rehabilitation Potential Excellent Analytic Complexity at Evaluation Low Summary OT Impairments Balance Progress Towards Goals Progressing Toward Goals Assessment Summary Pt doing much better today and no dizzy but not wanting to try to shower or do any grooming needs at this time and feels that she will be ready to go home tomorrow. Encouraged pt to have sister stay with her the first night and to be sure able to do own IADl and showering needs. Goals Grooming Goal Independent Dressing Goal Independent Toileting Goal Independent Bathing Goal Independent Toilet Transfer Goal Independent Shower Transfer Goal Independent Days to Meet Goals 2 Frequency of Treatment Frequency Of Treatment Once a Day Treatment Plan OT Treatment Plan ADL Training,Functional Mobility,Patient/Family Education,Discharge Planning Other Treatment Recommendations and Next shower if able to tolerate Treatment Focus Discharge Recommendations OT Discharge Recommendations Home with Assistance Home Equipment Needs shower chair
--- NOTE | 2019-12-31 15:58 | P.PN_ITS ---
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 The patient is resting comfortably in bed. She reports that today is the first day that she was able to get up with physical therapy and not feel lightheaded or dizzy. Her orthostatic blood pressures were positive overnight and she received 500 cc bolus of normal saline with resolution of orthostasis. Discontinued furosemide for which the patient takes for peripheral edema not related to cardiac etiology. Patient denies headache, vision changes, cough, shortness of breath, chest pain or pressure, abdominal, pain nausea, vomiting, fever, chills, dysuria, diarrhea or constipation. The patient is voiding without difficulty. The patient reports she has not had a BM in a couple days but has not ate much and she does not feel this is unusual. However, the patient reports she usually has 3-4 soft well formed bowel movements a day, therefore, a bowel regimen has been implemented. The patient is up ambulating with assistance. Continue PT and OT. Exam Vital Signs (past 8 hours): - 12/31/19 12:00 Temperature 97.5 F L Pulse Rate 64 Respiratory Rate 18 Blood Pressure 130/86 Pulse Oximetry 94 Oxygen Delivery Method Room Air,Nasal Cannula Oxygen Flow Rate 0 Narrative Exam Narrative: General: Elderly female lying in bed and in no acute distress, well-developed, well-nourished, mild dysarthria but otherwise appropriately interactive. HEENT: Normocephalic, atraumatic. External ears without defect. Pupils equal, round, and reactive to light. Anicteric sclerae, moist conjunctivae, and no lid lag. Oropharynx free of erythema and cobble stoning with moist mucosa. Neck: Supple with full range of motion. No jugular venous distension. No lymphadenopathy or thyromegaly. Cardiovascular: Irregularly irregular without murmurs, rubs, or gallops appreciated. Pulmonary: Clear to auscultation bilaterally without crackles, wheezes, or rh onchi. Normal respiratory effort with no use of accessory muscles. Abdomen: Soft, obese, bowel sounds present, nontender, nondistended. No hepatosplenomegaly or masses appreciated. Extremities: No clubbing, cyanosis, or edema. Varicose veins present. Skin: Normal temperature, turgor, and texture; no rash, ulcers, or subcutaneous nodules appreciated. Neurological: Cranial nerves grossly intact. Chronic right-sided paresthesias and mild dysarthria. Psychiatric: Normal mood and affect. Alert and oriented to person, place, and time. Objective Labs Result Diagrams: 12/31/19 05:40 12/31/19 05:40 Labs: Laboratory Results - last 24 hr 12/31/19 12/31/19 12/31/19 05:40 05:40 05:40 WBC 8.0 RBC 4.30 Hgb 9.3 L Hct 30.6 L MCV 71.1 L MCH 21.6 L MCHC 30.4 RDW 22.7 H Plt Count 357 Neut % (Auto) 69.6 Lymph % (Auto) 16.9 L [place] % (Auto) 10.1 Eos % (Auto) 2.4 Baso % (Auto) 1.0 Neut # (Auto) 5600 Lymph # (Auto) 1400 [place] # (Auto) 800 Eos # (Auto) 200 Baso # (Auto) 100 RBC Morphology See below Polychromasia 1+ H Anisocytosis 2+ H PT 29.3 H INR 2.6 H Sodium 141 Potassium 3.6 Chloride 105 Carbon Dioxide 31 BUN 23 H Creatinine 1.38 H Estimated GFR 37.3 L BUN/Creatinine Ratio 16.7 Glucose 94 Calcium 8.8 Magnesium 1.9 Assessment & Plan Assessment & Plan narrative: Sybil Wadsworth is 74-year-old female with a past medical history significant for hypertension, hyperlipidemia, chronic atrial fibrillation on warfarin, 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 1. Acute persistent dizziness, secondary to orthostatic hypotension, present on admission. Resolved. -Orthostatic blood pressure measurements positive likely due to over-diuresis in addition to beta-maddison for rate control. Patient received IV fluid bolus and maintenance fluids with resolution of orthostatic hypotension. -CT brain without contrast did not demonstrate any acute intracranial abnormality. -MR stroke protocol did not demonstrate any acute or subacute infarction, no masses or abnormal enhancement, no intercranial or neck hemodynamically significant stenosis. Remote left frontal lobe infarction. -Echocardiogram was unremarkable with normal EF and no significant valvular disease. -Continue metoprolol succinate decreased from 100 mg to 75 mg twice daily to continue to control heart rate and blood pressure but to improve orthostatic hypotension. Held furosemide 60 mg in the morning and 20 mg in the evening for now to improve orthostatic hypotension. -Continue supportive treatment with: Compression stockings worn throughout the day while awake, meclizine 25 mg every 6 hours as needed for dizziness and zofran 4 mg IV every 6 hours as needed for nausea. -Continue physical and occupational therapy evaluation and treatment. 3. Chronic atrial fibrillation on warfarin, present on admission. Stable. -Continue home warfarin 5 mg daily and 2.5 mg on Sunday. Continue to monitor INR daily. -Continue metoprolol succinate decreased from 100 mg to 75 mg twice daily to continue to control heart rate and blood pressure but to improve orthostatic hypotension. -Continue to monitor closely on telemetry. 2. Acute UTI ruled out. -Urine culture has no growth. The patient denies urinary tract symptoms other than frequency due to IV fluid administration. Received ceftriaxone 1 g IV x2 doses and discontinued as patient has no active infection. 4. Hypertension, chronic, present on admission. Stable. -Continue metoprolol succinate decreased from 100 mg to 75 mg twice daily to continue to control heart rate and blood pressure but to improve orthostatic hypotension. 5. Hyperlipidemia, chronic, present on admission. Stable. -Continue home atorvastatin 20 mg daily at bedtime. 6. History of ischemic and hemorrhagic CVAs. -Continue home warfarin and atorvastatin 20 mg daily at bedtime. 7. Depression, chronic, present on admission. Stable. -Continue home fluoxetine 20 mg daily. 8. Gout, chronic, present on admission. Stable. -Continue allopurinol 300 mg daily. Code: Full code. Patient has updated POLST form at her house. Surrogate decision maker is the daughter. DVT prophylaxis: Warfarin, SCDs Disposition: Patient likely to discharge home with home health possibly [facility] if orthostasis remains resolved.
[2019-12-31] MEDS: WARFARIN 5 MG TABLET PO (16:54)
[2019-12-31] MEDS: METOPROLOL ER 50 MG TABLET 75 MG PO (19:32)
[2019-12-31] MEDS: ATORVASTATIN 20 MG TABLET PO (19:33)
[2019-12-31] MEDS: GABAPENTIN 300 MG CAPSULE 900 MG PO (19:33)
[2020-01-01 03:00] VITALS: BP 134/80; PULSE 69; RESP 18; TEMP 36.3; O2SAT 98
[2020-01-01] MEDS: LEVOTHYROXINE 50 MCG TABLET PO (05:46)
[2020-01-01 06:00] LABS: Basophils Absolute Auto 100 /uL (0-100); Basophils Percent Auto 1.1 % (0-2); Eosinophils Absolute Auto 300 /uL (0-450); Eosinophils Percent Auto 3.2 % (2-4); Hematocrit 31.4 % (36-46); Hemoglobin 9.7 g/dL (12.0-16.0); Lymphocytes Absolute Auto 1600 /uL (1100-4500); Lymphocytes Percent Auto 17.2 % (25-40); Mean Corpuscular Hemoglobin 21.8 PG (26-34); Mean Corpuscular Volume 70.3 fL (80-100); Monocytes Absolute Auto 900 /uL (0-900); Monocytes Percent Auto 9.7 % (3-14); Neutrophils Absolute Auto 6500 /uL (1500-7000); Neutrophils Percent Auto 68.8 % (50-75); Platelet Count 361 X10^3/uL (150-400); Red Blood Cell Count 4.46 X10^6/uL (4.0-5.2); Red Cell Distribution Width 22.8 % (11.6-14.8); White Blood Cell Count 9.4 X10^3/uL (4.5-11.0)
[2020-01-01 06:02] LABS: INR 2.3 (0.9-1.3)
[2020-01-01 06:08] LABS: Add Manual Diff / Slide Review SLIDE REVIEW
[2020-01-01 06:09] LABS: BUN Creatinine Ratio 18.7 (6-22); Blood Urea Nitrogen 23 mg/dL (7-17); Calcium 9.3 mg/dL (8.4-10.2); Carbon Dioxide 31 mmol/L (22-32); Chloride 104 mmol/L (98-107); Estimated Glomerular Filt Rate 42.6 mL/min (>60); Glucose 91 mg/dL (80-110); HEMOLYSIS < 15 (0-50); Magnesium 1.9 mg/dL (1.6-2.3); Potassium 4.1 mmol/L (3.4-5.1); Sodium 139 mmol/L (137-145)
[2020-01-01 06:16] LABS: HEMOLYSIS < 15 (0-50); Iron 28 ug/dL (37-170)
[2020-01-01 06:26] LABS: Percent Iron Saturation 7 % (15-50); Total Iron Binding Capacity 399 ug/dL (265-497); Transferrin 328 mg/dL (206-381)
[2020-01-01 07:00] VITALS: BP 126/63; BP 134/77; BP 148/79; PULSE 62; PULSE 64; PULSE 72; RESP 18; TEMP 36.3; O2SAT 95
[2020-01-01 07:02] LABS: Anisocytosis 2+; Microcytosis 1+; Polychromasia 1+
[2020-01-01 07:03] LABS: Stomatocytes 1+
[2020-01-01] MEDS: METOPROLOL ER 50 MG TABLET 75 MG PO (09:18)
[2020-01-01] MEDS: FLUoxetine 20 MG CAPSULE PO (09:18)
[2020-01-01] MEDS: FERROUS SULFATE 325 MG TABLET PO (09:19)
[2020-01-01] MEDS: ASCORBIC ACID 500 MG TABLET PO (09:19)
[2020-01-01] MEDS: CYANOCOBALAMIN (VITAMIN B-12) 500 MCG TABLET 1000 MCG PO (09:19)
[2020-01-01] MEDS: CALCIUM CARB/VIT D3 500/200 TABLET 1 EACH PO (09:20)
[2020-01-01] MEDS: allopurinoL 300 MG TABLET PO (09:20)
--- NOTE | 2020-01-01 11:37 | P.DS_ITS ---
History of Present Illness History of Present Illness Date Patient Seen: 12/29/19 Chief complaint: Dizziness x3days Narrative: Written by Dr. 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 She is experiencing dizziness at rest and throughout the day. Nothing seems to make it better or worse. It does not seem to be positional in nature. The dizziness does improve when she closes her eyes. She has been nauseous and not eating much over the past few days. She denies fever, chills, headaches, cough, shortness of breath, vision changes, palpitations. She denies any falls due to the dizziness or prior to this starting. In the emergency room, patient was mildly hypertensive but other vitals were unremarkable. Labortatory evaluation showed a Hg of 10.0, MCV of 70, Cr of 1.35, Tbili 1.9, AST of 51. Unknown baseline values including Cr. Troponin was negative. UA showed small amount of WBC and LE but no nitrites and was reflexed to culture. CT head was negative for acute hemorrhage. She was given meclizine and zofran with some relief of nausea but not dizziness. She was admitted for further evaluation after failing to ambulate in the emergency room. Discharge Providers Provider Date of admission: 12/30/19 15:18 Discharge Date: 01/01/20 Primary care physician: Julien Tyler DO Consults: 12/29/19 18:35 Consult to Occupational Therapy Evaluate & Treat Comment: Physician Instructions: Evaluate and treat Consult to Physical Therapy Evaluate & Treat Comment: Physician Instructions: Evaluate and Treat Discharge provider: Charley Leon DO Summary Hospital Course Discharge Diagnosis: 1. Acute persistent dizziness, secondary to orthostatic hypotension and probable BPPV, present on admission. Resolved. 2. Acute UTI ruled out. 3. Chronic atrial fibrillation on warfarin, present on admission. Stable. 4. Hypertension, chronic, present on admission. Stable. 5. Hyperlipidemia, chronic, present on admission. Stable. 6. History of ischemic and hemorrhagic CVAs. 7. Depression, chronic, present on admission. Stable. 8. Gout, chronic, present on admission. Stable. Hospital Course: Sybil Wadsworth is 74-year-old female with a past medical history significant for hypertension, hyperlipidemia, chronic atrial fibrillation on warfarin, 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 1. Acute persistent dizziness, secondary to orthostatic hypotension and probable BPPV, present on admission. Resolved. -Orthostatic blood pressure measurements positive likely due to over-diuresis in addition to beta-maddison for rate control. Patient received IV fluid bolus and maintenance fluids with resolution of orthostatic hypotension. -CT brain without contrast did not demonstrate any acute intracranial abnormality. -MR stroke protocol did not demonstrate any acute or subacute infarction, no masses or abnormal enhancement, no intercranial or neck hemodynamically significant stenosis. Remote left frontal lobe infarction. -Echocardiogram was unremarkable with normal EF and no significant valvular disease. -Continued metoprolol succinate decreased from 100 mg to 75 mg twice daily to continue to control heart rate and blood pressure but to improve orthostatic hypotension. Held furosemide 60 mg in the morning and 20 mg in the evening. Instructed patient to restart furosemide 60 mg daily day after discharge. -Continued supportive treatment with: Compression stockings worn throughout the day while awake, meclizine 25 mg every 6 hours as needed for dizziness and zofran 4 mg IV every 6 hours as needed for nausea. -Continued physical and occupational therapy evaluation and treatment. Patient discharged home with home health for physical and occupational therapy with vestibular training. -Patient's persistent lightheadedness resolved which was likely related to orthostatic hypotension from medications as above. She continued to have intermittent mild dizziness mostly with movement and likely due to BPPV. 2. Acute UTI ruled out. -Urine culture has no growth. The patient denies urinary tract symptoms other than frequency due to IV fluid administration. Received ceftriaxone 1 g IV x2 doses and discontinued as patient has no active infection. 3. Chronic atrial fibrillation on warfarin, present on admission. Stable. -Continued home warfarin 5 mg daily and 2.5 mg on Sunday. Continue to monitor INR daily. -Continued metoprolol succinate decreased from 100 mg to 75 mg twice daily to continue to control heart rate and blood pressure but to improve orthostatic hypotension. -Continued to monitor closely on telemetry. 4. Hypertension, chronic, present on admission. Stable. -Continued metoprolol succinate decreased from 100 mg to 75 mg twice daily to continue to control heart rate and blood pressure but to improve orthostatic hypotension. 5. Hyperlipidemia, chronic, present on admission. Stable. -Continued home atorvastatin 20 mg daily at bedtime. 6. History of ischemic and hemorrhagic CVAs. -Continued home warfarin and atorvastatin 20 mg daily at bedtime. 7. Depression, chronic, present on admission. Stable. -Continued home fluoxetine 20 mg daily. 8. Gout, chronic, present on admission. Stable. -Continued allopurinol 300 mg daily. 9. Chronic kidney disease stage 3, present on admission. Stable. 10. Anemia of chronic disease, present on admission. Stable. Exam Vital Signs (past 8 hours): - 01/01/20 07:00 Temperature 97.3 F L Pulse Rate 62 Pulse Rate [Orthostatic Lying] 62 Pulse Rate [Orthostatic Sitting] 64 Pulse Rate [Orthostatic Standing] 72 Respiratory Rate 18 Blood Pressure [Orthostatic Lying] 148/79 H Blood Pressure [Orthostatic Sitting] 134/77 Blood Pressure [Orthostatic Standing] 126/63 Pulse Oximetry 95 Oxygen Delivery Method Room Air Oxygen Flow Rate 0 Narrative Exam Narrative: General: Elderly female lying in bed and in no acute distress, well-developed, well-nourished, mild dysarthria but otherwise appropriately interactive. HEENT: Normocephalic, atraumatic. External ears without defect. Pupils equal, round, and reactive to light. Anicteric sclerae, moist conjunctivae, and no lid lag. Oropharynx free of erythema and cobble stoning with moist mucosa. Neck: Supple with full range of motion. No jugular venous distension. No lymphadenopathy or thyromegaly. Cardiovascular: Irregularly irregular without murmurs, rubs, or gallops appreciated. Pulmonary: Clear to auscultation bilaterally without crackles, wheezes, or rhonchi. Normal respiratory effort with no use of accessory muscles. Abdomen: Soft, obese, bowel sounds present, nontender, nondistended. No hepatosplenomegaly or masses appreciated. Extremities: No clubbing, cyanosis, or edema. Varicose veins present. Skin: Normal temperature, turgor, and texture; no rash, ulcers, or subcutaneous nodules appreciated. Neurological: Cranial nerves grossly intact. Chronic right-sided paresthesias and mild dysarthria. Psychiatric: Normal mood and affect. Alert and oriented to person, place, and time. Objective Labs Result Diagrams: 01/01/20 05:40 01/01/20 05:40 Labs: Laboratory Results - last 24 hr 01/01/20 01/01/20 01/01/20 05:40 05:40 05:40 WBC 9.4 RBC 4.46 Hgb 9.7 L Hct 31.4 L MCV 70.3 L MCH 21.8 L MCHC 31.0 RDW 22.8 H Plt Count 361 Neut % (Auto) 68.8 Lymph % (Auto) 17.2 L [place] % (Auto) 9.7 Eos % (Auto) 3.2 Baso % (Auto) 1.1 Neut # (Auto) 6500 Lymph # (Auto) 1600 [place] # (Auto) 900 Eos # (Auto) 300 Baso # (Auto) 100 RBC Morphology See below Polychromasia 1+ H Anisocytosis 2+ H Microcytosis 1+ H Stomatocytes 1+ H PT 26.0 H INR 2.3 H Sodium 139 Potassium 4.1 Chloride 104 Carbon Dioxide 31 BUN 23 H Creatinine 1.23 H Estimated GFR 42.6 L BUN/Creatinine Ratio 18.7 Glucose 91 Calcium 9.3 Magnesium 1.9 Iron TIBC % Saturation Transferrin 01/01/20 05:40 WBC RBC Hgb Hct MCV MCH MCHC RDW Plt Count Neut % (Auto) Lymph % (Auto) [place] % (Auto) Eos % (Auto) Baso % (Auto) Neut # (Auto) Lymph # (Auto) [place] # (Auto) Eos # (Auto) Baso # (Auto) RBC Morphology Polychromasia Anisocytosis Microcytosis Stomatocytes PT INR Sodium Potassium Chloride Carbon Dioxide BUN Creatinine Estimated GFR BUN/Creatinine Ratio Glucose Calcium Magnesium Iron 28 L TIBC 399 % Saturation 7 L Transferrin 328 Discharge Plan Discharge Plan Patient Disposition: Home Health Service Discharge comment: You are being discharged home. Your dizziness is likely caused by benign paroxysmal positional vertigo and orthostatic hypotension (which now is resolved and due to medications including furosemide and metoprolol). Your furosemide dose has been lowered from 60 mg in the morning and 20 mg in the afternoon to only 60 mg in the morning. Your metoprolol succinate dose has been lowered from 100 mg twice daily to 75 mg twice daily. Please continue to use compression stockings especially while up and active and elevate your legs above the level of your heart frequently when your are not up and active. You may perform hand shank sorter and heel pump exercises prior to standing up and walking to help with dizziness. In regard to benign paroxysmal positional vertigo or BPPV, recommend vestibular training with home health physical and occupational therapy. You are prescribed meclizine 25 mg every 6 hours as needed to help with symptomatic dizziness from BPPV. Please follow-up with your primary care physician, Dr. Tyler, in the next 1-2 weeks regarding your hospitalization. Please use your walker at all times while ambulating. Discharge orders & Medications Prescriptions: New ondansetron HCl [Zofran] 4 mg tablet 4 mg PO Q8H Qty: 20 RF: 0 metoprolol succinate 50 mg Tablet Extended Release 24 Hr 75 mg PO BID Qty: 45 RF: 0 meclizine 12.5 mg Tablet 25 mg PO Q6HR PRN (Reason: Vertigo) Qty: 20 RF: 0 ferrous sulfate 325 mg (65 mg iron) Tablet 325 mg PO DAILY Qty: 30 RF: 0 Continued atorvastatin 20 mg Tablet 20 mg PO BEDTIME RF: 0 cyanocobalamin (vitamin B-12) [Vitamin B-12] 1,000 mcg Tablet 1,000 mcg PO DAILY RF: 0 warfarin 5 mg Tablet 5 mg PO QPM RF: 0 gabapentin 300 mg Capsule 900 mg PO BEDTIME RF: 0 allopurinol 300 mg Tablet 300 mg PO DAILY RF: 0 furosemide 20 mg Tablet 60 mg PO QAM RF: 0 Calcium 600 with Vitamin D3 600 mg(1,500mg) -400 unit Tablet,Chewable 1 tab PO DAILY RF: 0 levothyroxine 50 mcg tablet 50 mcg PO QAM RF: 0 fluoxetine 20 mg capsule 20 mg PO DAILY RF: 0 cetirizine [Zyrtec] 10 mg Tablet 10 mg PO DAILY RF: 0 ascorbic acid (vitamin C) [Vitamin C] 500 mg Tablet 500 mg PO QAM RF: 0 omeprazole 20 mg capsule,delayed release(DR/EC) 20 mg PO DAILY RF: 0 Discontinued furosemide 20 mg Tablet 20 mg PO QPM RF: 0 metoprolol succinate 100 mg tablet extended release 24 hr 100 mg PO BID RF: 0 Follow up/Referrals: Julien Tyler DO [Primary Care Provider] - 1 Week Diet/Activity/Treatments Diet: Low-fat, Low-sodium and Low-cholesterol Activity: Activity as tolerated with forward wheeled walker Visit Report/Discharge Packet Instructions: DI for Orthostatic Hypotension, Benign Paroxysmal Positional Vertigo Discharge Data Primary Care Provider: Julien Tyler Discharges patient from system. Discharge Date/Time: 01/01/20 12:20
--- NOTE | 2020-01-01 11:41 | CM.DPC ---
Addendum entered by Nuvia Collazo R.N. 01/01/20 12:24: Dr. Leon came by and stated that patient is consenting to home health. No noted preferences, but on calendar for this week is [facility]. Called Yaima at [facility], and gave her information on patient. She stated that they should be able to see her within 24-48 hours. Added nursing, to assess medications, and P.T. Faxed [facility], discharge summary, face sheet, contact information, since daughter, Sybil Love is involved, as well as face to face and orders. Attempted to reach daughterSybil again, with update on home health, but call does not go through. Original Note: DCP Cont: Patient is to be discharged home today. Daughter, Sybil Love from [place] called for updated, and let her know. Stated that her sister will be picking her up. P: Patient is to be discharged home today. Nuvia Collazo RN/Flat Folding Machine Operator
[2020-01-01] MEDS: MECLIZINE HCL 12.5 MG TABLET 25 MG PO (11:42)
--- NOTE | 2020-01-01 12:18 | PC.NURSE ---
Discharge instructions and home care handouts reviewed with patient, she states understanding and has no further questions or concerns at this time. IV removed intact. 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 Patient states she will call to schedule appointment for follow up with her PCP. Instructed and agrees to call her doctor for continued or worsening symptoms or to seek emergent care for emergency. Escorted out via wheelchair to be discharged to home with her sister.
--- NOTE | 2020-01-01 12:52 | PT.IPTN ---
Current Diagnoses Dizziness and giddiness (12/30/19) Physical Therapy Treatment Note M2 PT-IP Current Condition Start: 12/30/19 14:34 Freq: NEEDED Status: Discharge Protocol: Document 12/30/19 13:29 AB (Rec: 12/30/19 14:50 AB [id number]) Physical Therapy Current Condition Current Condition Evaluation Date 12/30/19 Treatment Diagnosis dizziness; difficulty in walking Onset Date 12/29/19 M3 PT-IP Subjective Start: 12/30/19 14:34 Freq: NEEDED Status: Discharge Protocol: Document 01/01/20 10:45 LJ (Rec: 01/01/20 12:51 LJ [email or web address]) Subjective Physical Therapy Visit Type Type Treatment Note Visit Start Time 10:45 Visit Stop Time 11:20 Total Visit Minutes 35 Number of OCEANOGRAPHIC METEOROLOGIST Visits 1 Physical Therapy Visit Comments Patient Comments Pt wants to go home but concerned about dizziness M4 PT-IP Mobility and Gait Start: 12/30/19 14:34 Freq: NEEDED Status: Discharge Protocol: Document 01/01/20 10:45 LJ (Rec: 01/01/20 12:51 LJ [email or web address]) PT-Bed Mobility Assessment Supine to Sit Supine to Sit Independent PT-Transfer Assessment Sit to and From Stand Sit to and from Stand Standby Assistance Equipment Transfer Assistive Device Gait Belt,Front Wheeled Walker Transfers Transfer Destination Bed Transfer Technique ambulated with FWW Transfer Ability Level of Assist Standby Assistance Comments Mobility Comments Supine BP 138/84, sitting 133/ 80, standing 135/78. Pt stood and used FWW to walk to sink. Pt not reporting being dizzy in any position. Pt stood at bedside and turned head side to side which brought on dizziness. Pt returned to seated position and rested 3 min then again and repeated head turns without bringing on dizziness. She is able to perform bed mobility and transfers SBA with FWW for support should she experience dizziness. Gait Assessment Gait Gait Assistance Required: Standby Assistance,Contact Guard Assist Distance (Feet) 250 Able to Maintain Weight Bearing Status Yes During Gait Assistive Devices Assistive Device Gait Belt,Front Wheeled Walker Gait Deviations General Gait Pattern Decreased Stride Length, Decreased Feet Clearance Factors Limiting Gait Function Factors Limiting Gait Function Decreased Activity Tolerance, Decreased Strength,Poor Balance,Poor Safety Awareness Comments Gait Comments Pt ambulated in hallway about 100' WC following then experienced dizziness and requested to si down. Pt rested for several minutes and was wheeled to stairs for trial to go home. Pt able to ascend and descend stairs successfully without dizziness . She then ambulated on hallway another 150' thn reposted dizziness and requested to sit in WC. Pt wheeled to room and sat on EOB . BP 127/85. Stair Climbing Assessment Evaluation Level of Assist On Stairs Standby Assistance,Contact Guard Assistance Devices Stair Climbing Assistive Devices Left Railing,Right Railing Technique/Endurance Stair Climbing Direction Ascend and Descend Stair Climbing Technique Step Over Step Number of Steps Climbed 3 Stair Climbing Set # Repetitions (reps) 2 M5 PT-IP Objective Assessments Start: 12/30/19 14:34 Freq: NEEDED Status: Discharge Protocol: Document 12/30/19 13:29 AB (Rec: 12/30/19 14:50 AB [id number]) Orientation Orientation/Cognition Level of Alertness Alert Orientation Name Safety Awareness Decreased Safety Awareness Gross Range of Motion Lower Extremity ROM Assessment Within Functional Limits Strength Lower Extremity Strength Assessment Within Functional Limits Muscle Tone Muscle Tone WNL Yes M6 PT-IP Treatment Start: 12/30/19 14:34 Freq: NEEDED Status: Discharge Protocol: Document 01/01/20 10:45 LJ (Rec: 01/01/20 12:51 LJ [email or web address]) Physical Therapy Treatment Education Education Provided Safety M7 PT-IP Assessment and Plan Start: 12/30/19 14:34 Freq: NEEDED Status: Discharge Protocol: Document 01/01/20 10:45 LJ (Rec: 01/01/20 12:51 LJ [email or web address]) PT Summary Assessment and Plan Potential Rehabilitation Potential Fair Status of Condition at Evaluation Evolving Summary Impairments Pain,ROM,Strength,Balance, Coordination,Cognition,Bed Mobility,Transfers,Gait, Activity Tolerance Assessment Summary Pt orthostatic BP remained stable throughout duration of treatment regardless of position or activity vs rest. She is able to ambulate with cues for pacing and proper breathing but will experience dizziness after ~100'. Side to side head turns brought on dizziness without nystagmus in standing position only. Advised pt to consider HH for Eply's assessment for possible VPPB. Pt safe to DC today with sister at home with her for a few days to assist. Pt to continue to use FWW for ambulation Goals Bed Mobility Goal Independent Transfer Goal Independent,Front Wheeled Walker Gait Goal Independent,Front Wheel Walker Gait Distance 200 Other Goals improve ambulation 250 ft SBA without AD up/down 7 steps with bilateral rails SBA Days to Meet Goals 5 Frequency of Treatment Frequency Of Treatment Once a Day Treatment Plan Physical Therapy Treatment Plan Gait Training,Therapeutic Exercise,Balance Retraining, Discharge Planning, Neuromuscular Re-ed, Coordination Retraining Recommendations To Nursing Amount of Assist Needed Standby Assistance Discharge Recommendations PT Discharge Recommendations Home with Assistance,Home Health Transportation Needs at Discharge Private Vehicle,Wheelchair/ Cabulance
== END 2020-01-01 12:20 | disposition home health service (06) | DRG 312 ==
LOC: ED 15:01 → AC 17:04
PROVIDERS: Emergency Medicine; Internal Medicine; Admitting Provider Internal Medicine; Emergency Provider Student in an Organized Health Care Education/Training Program; PCP Family Medicine; Referring Provider Student in an Organized Health Care Education/Training Program; Visit Provider Internal Medicine
DX: I95.1 Orthostatic hypotension (principal); I48.20 Chronic atrial fibrillation, unspecified; R42 Dizziness and giddiness; Z79.01 Long term (current) use of anticoagulants; I10 Essential (primary) hypertension; E78.5 Hyperlipidemia, unspecified; I69.398 Other sequelae of cerebral infarction; I69.322 Dysarthria following cerebral infarction; R20.2 Paresthesia of skin; M10.9 Gout, unspecified; F32.9 Major depressive disorder, single episode, unspecified
CPT/HCPCS: 36415; 70450; 70548; 70553; 80048; 80053; 80061; 81003; 81015; 83036; 83540; 83550; 83735; 84439; 84443; 84484; 85025; 85610; 87086; 93005; 93306; 94762; 96361; 96374; 97116; 97162; 97165; 97530; 99285; G0378; J2405

== ENCOUNTER 2022-01-17 16:34 | Emergency (ER) | payer MEDICARE, SELFPAY ==
[2019-12-29 17:55] VITALS: BMI 36.8
[2022-01-17 16:34] VITALS: BP 213/97; PULSE 67; RESP 24; O2SAT 95; BMI 33.9
--- NOTE | 2022-01-17 16:42 | DI.CT.S_ITS ---
PROCEDURE: CT HEAD/BRAIN WO CON INDICATIONS: fall, hit head,on thinners TECHNIQUE: Noncontrast 4.5 mm thick angled axial sections acquired from the foramen magnum to the vertex, with coronal and sagittal reformats. For radiation dose reduction, the following was used: automated exposure control, adjustment of mA and/or kV according to patient size. COMPARISON: None. FINDINGS: Image quality: Excellent. CSF spaces: Basal cisterns are patent. No extra-axial fluid collections. The ventricles are symmetric in size and shape. Brain: No intracranial bleeds or masses. There is cerebral volume loss for age, with resultant ventricular and sulcal prominence. There are periventricular and deep white matter chronic small vessel ischemic changes. Left temporal infarction is noted. There is intracranial internal carotid artery atherosclerosis. Skull and face: Calvarium and visualized facial bones appear intact, without suspicious lesions. Left temporal occipital scalp hematoma. Sinuses: Visualized sinuses and mastoids are clear. IMPRESSION: 1. No acute intracranial process. 2. Moderate atrophy and chronic microvascular ischemic changes. 3. Left temporal occipital scalp hematoma. Dictated by: Carolyn Brown M.D. on 01/17/2022 at 17:07 Approved by: Carolyn Brown M.D. on 01/17/2022 at 17:09
--- NOTE | 2022-01-17 16:43 | DI.CT.S_ITS ---
PROCEDURE: CT CERVICAL SPINE WO CON INDICATIONS: fall on thinners TECHNIQUE: Noncontrast 3 mm thick sections acquired from the skull base to the T4 level. Sagittal and coronal reformats were then constructed. For radiation dose reduction, the following was used: automated exposure control, adjustment of mA and/or kV according to patient size. COMPARISON: None. FINDINGS: Image quality: Excellent. Bones: No fractures or dislocations. Visualized superior ribs are intact. Cervical straightening is present. Multilevel moderate to severe degenerative disc space narrowing is present. Soft tissues: Prevertebral soft tissues are normal in thickness. No paravertebral hematomas. No apical pneumothoraces. IMPRESSION: Multilevel degenerative changes without visualized fracture. Dictated by: Carolyn Brown M.D. on 01/17/2022 at 17:09 Approved by: Carolyn Brown M.D. on 01/17/2022 at 17:10
[2022-01-17 17:01] VITALS: BP 171/84; PULSE 68; RESP 16; O2SAT 96
--- NOTE | 2022-01-17 17:14 | DI.RAD.S_ITS ---
PROCEDURE: XR CHEST 1V INDICATIONS: falls TECHNIQUE: One view of the chest was acquired. COMPARISON: None. FINDINGS: Surgical changes and devices: None. Lungs and pleura: Lungs are clear. No pleural effusions or pneumothorax. Mediastinum: Mediastinal contours appear normal. Heart size is enlarged. Bones and chest wall: No suspicious bony lesions. Overlying soft tissues appear unremarkable. IMPRESSION: No acute pulmonary process. Dictated by: Carolyn Brown M.D. on 01/17/2022 at 17:41 Approved by: Carolyn Brown M.D. on 01/17/2022 at 17:41
[2022-01-17 17:21] LABS: Add Manual Diff / Slide Review NO; Basophils Absolute Auto 100 /uL (0-100); Basophils Percent Auto 0.8 % (0-2); Eosinophils Absolute Auto 100 /uL (0-450); Eosinophils Percent Auto 1.4 % (2-4); Hematocrit 34.4 % (36-46); Hemoglobin 10.7 g/dL (12.0-16.0); Lymphocytes Absolute Auto 900 /uL (1100-4500); Lymphocytes Percent Auto 9.5 % (25-40); Mean Corpuscular HGB Conc 31.1 % (30-36); Mean Corpuscular Hemoglobin 24.3 PG (26-34); Mean Corpuscular Volume 78.1 fL (80-100); Monocytes Absolute Auto 900 /uL (0-900); Monocytes Percent Auto 9.5 % (3-14); Neutrophils Absolute Auto 7300 /uL (1500-7000); Neutrophils Percent Auto 78.8 % (50-75); Platelet Count 292 X10^3/uL (150-400); Red Cell Distribution Width 18.4 % (11.6-14.8); White Blood Cell Count 9.2 X10^3/uL (4.5-11.0)
[2022-01-17 17:23] LABS: INR 3.5 (0.9-1.3); Prothrombin Time 40.7 SECONDS (10.1-12.7)
[2022-01-17 17:26] LABS: PTT Partial Thromboplastin Tim 52 SECONDS (26.4-36.2)
[2022-01-17 17:28] LABS: Alanine Aminotransferase 23 IU/L (<35); Albumin 4.6 g/dL (3.5-5.0); Albumin Globulin Ratio 1.4 (1.0-2.8); Alkaline Phosphatase 76 U/L (38-126); Aspartate Aminotransferase 40 IU/L (14-36); BUN Creatinine Ratio 14.9 (6-22); Bilirubin Total 1.1 mg/dL (0.2-1.3); Blood Urea Nitrogen 20 mg/dL (7-17); Calcium 9.1 mg/dL (8.4-10.2); Carbon Dioxide 28 mmol/L (22-32); Chloride 107 mmol/L (98-107); Creatine Kinase 53 U/L (30-135); Estimated Glomerular Filt Rate 41 mL/min (>60); Globulin 3.3 g/dL (1.7-4.1); Glucose 82 mg/dL (80-110); HEMOLYSIS < 15 (0-50); Lactate (Lactic Acid) 1.9 mmol/L (0.7-2.1); Lipase 120 U/L (23-300); Potassium 4.3 mmol/L (3.4-5.1); Sodium 144 mmol/L (137-145); Total Protein 7.9 g/dL (6.3-8.2)
[2022-01-17 17:30] VITALS: BP 170/90; PULSE 64; RESP 17; O2SAT 96
[2022-01-17] MEDS: SODIUM CHLORIDE 0.9% 1,000 ML 150 ML IV (17:30)
[2022-01-17 17:40] LABS: Troponin I < 0.012 ng/mL (0.01-0.034)
[2022-01-17 17:45] LABS: Procalcitonin 0.05 ng/mL (<0.5)
[2022-01-17 18:00] VITALS: BP 179/87; PULSE 72; RESP 13; O2SAT 96
--- NOTE | 2022-01-17 18:26 | ED_ITS ---
HPI - Head Injury General Chief complaint: Head Injury Stated complaint: FALLS HIT HEAD WEAKNESS Time Seen by Provider: 01/17/22 16:43 Source: patient and family Mode of arrival: Wheelchair History of Present Illness HPI Narrative: The patient is anticoagulated with Coumadin. She has a history of 3 strokes in the past. Her balance is occasionally a problem. She fell backwards while loading her car, hitting her occiput head on the pavement. She has a large occipital hematoma. She does not have a headache, no complaints of pain. She has no visual changes, no confusion, and no neck pain. She denies chest pain, cough or dyspnea. She has no GI or complaints. She was all 4 extremities without discomfort. When she came in to triage, she went to her knees when trying to get out of wheelchair. She had no injury in that mild mishap. She is anticoagulated Coumadin for due to AFib Related Data Home Medications Medication Instructions Recorded Confirmed allopurinol 300 mg tablet 300 mg PO DAILY 12/29/19 12/29/19 ascorbic acid (vitamin C) 500 mg 500 mg PO QAM 12/29/19 12/29/19 tablet (Vitamin C) atorvastatin 20 mg tablet 20 mg PO BEDTIME 12/29/19 12/29/19 calcium carbonate 600 mg-vitamin 1 tab PO DAILY 12/29/19 12/29/19 D3 10 mcg (400 unit) chewable tablet (Calcium 600 with Vitamin D3) cetirizine 10 mg tablet (Zyrtec) 10 mg PO DAILY 12/29/19 12/29/19 cyanocobalamin (vitamin B-12) 1,000 mcg PO DAILY 12/29/19 12/29/19 1,000 mcg tablet (Vitamin B-12) fluoxetine 20 mg capsule 20 mg PO DAILY 12/29/19 12/29/19 furosemide 20 mg tablet 60 mg PO QAM 12/29/19 12/29/19 gabapentin 300 mg capsule 900 mg PO BEDTIME 12/29/19 12/29/19 levothyroxine 50 mcg tablet 50 mcg PO QAM 12/29/19 12/29/19 omeprazole 20 mg capsule,delayed 20 mg PO DAILY 12/29/19 12/29/19 release warfarin 5 mg tablet 5 mg PO QPM 12/29/19 12/29/19 Previous Rx's Medication Instructions Recorded ondansetron HCl 4 mg tablet 4 mg PO Q8H #20 tab 12/29/19 (Zofran) ferrous sulfate 325 mg (65 mg 325 mg PO DAILY #30 tab 01/01/20 iron) tablet meclizine 12.5 mg tablet 25 mg PO Q6HR PRN #20 tab 01/01/20 metoprolol succinate 50 mg 75 mg PO BID #45 tab 01/01/20 tablet,extended release 24 hr Allergies Allergy/AdvReac Type Severity Reaction Status Date / Time amlodipine [AMLODIPINE] Allergy Unknown Verified 12/29/19 15:35 dexlansoprazole Allergy Unknown Verified 12/29/19 15:35 [From DEXILANT] lisinopril [LISINOPRIL] Allergy Unknown Verified 12/29/19 15:35 simvastatin [SIMVASTATIN] Allergy Unknown Verified 12/29/19 15:35 diltiazem Allergy Verified 12/29/19 13:31 Review of Systems Constitutional Constitutional: Denies fatigue, Denies frequent falls, Denies headache(s) and Denies malaise Eyes Eyes: Denies change in vision ENT Ears, Nose, Mouth, and Throat: Denies dizziness and Denies headache(s) Comments: No injuries to ears, nose, face, or mouth Cardiovascular Cardiovascular: Denies chest pain, Denies syncope, Denies rapid heart rate, Denies leg edema and Denies dyspnea Respiratory Respiratory: Denies chest congestion, Denies cough, Denies hemoptysis and Denies dyspnea Gastrointestinal Gastrointestinal: Denies abdominal pain, Denies melena and Denies nausea Genitourinary Comments: No urinary complaints. Musculoskeletal Comments: No neck, back or extremity injuries. See HPI. Integumentary/Breasts Comments: Blood oozing from her occipital scalp injury. No other injuries. Neurologic Neurologic: Denies confusion, Denies dizziness, Denies syncope, Denies frequent falls and Denies headache(s) Psychiatric Psychiatric: Denies confusion and Denies depression Endocrine Endocrine: Denies fatigue Hematologic/Lymphatic On Anticoagulants: Yes Patient History Medical History (Updated 01/17/22 @ 19:50 by Lenin Alonso MD) Anticoagulated on Coumadin Atrial fibrillation Gout History of multiple cerebrovascular accidents (CVAs) Hypertension Hypothyroidism Surgical History (Updated 01/17/22 @ 19:50 by Lenin Alonso MD) No significant past surgical history Social History household members: none Smoking Status: Never smoker alcohol intake: current Smoking Status: Never smoker alcohol intake frequency: 0-2 drinks per day Substance Use Type: does not use Exam Initial Vital Signs Initial Vital Signs: Vital Signs Pulse Rate 67 01/17/22 16:34 Respiratory Rate 24 01/17/22 16:34 Blood Pressure 213/97 H 01/17/22 16:34 Pulse Oximetry 95 01/17/22 16:34 Const General: cooperative, healthy appearing and comfortable [facility] Head: other (Occipital hematoma. Abrasion at the mid home. No bone defect.) Ears: TM's normal bilaterally Nose: external nose normal and nares normal Mouth: oral mucosae normal Throat: posterior oropharynx normal Eyes Conjunctivae: conjunctivae normal Sclera: sclerae normal Pupils: PERRL EOM: EOM intact bilaterally Neck Neck: normal visual inspection, full ROM and No tender Chest Breast inspection: Other (No palpable tenderness.) Resp Auscultation: clear to auscultation bilaterally Cardio Other: Irregular irregular rhythm. No murmur. Normal S1-S2. GI Inspection: normal to inspection Palpation: soft and No tender Auscultation: normal bowel sounds Back/Spine/Pelvis Back: normal to inspection, No back tenderness and other (No visible injuries.) Skin Other: Scalp hematoma, no other injuries visualized. Neuro General: patient alert, patient awake, patient oriented x3 and no focal motor deficits Cognition: normal cognition Speech: speech normal Gait: normal gait Sensory Exam: no sensory deficits noted Extrem General: normal to inspection, full ROM and other (No extremity injuries.) Psych Mental Status: mental status grossly normal Course Course Course Narrative: The patient had a C-spine in place following triage. She has no palpable cervical tenderness. CT she has no obvious injuries to the C-spine. She is neurologically intact. The C-collar was removed. Orders Ordered: ED Orders 01/17/22 16:42 CT head/brain wo con Stat 01/17/22 16:43 CT cervical spine wo con Stat 01/17/22 16:45 Complete Blood Count AUTO DIFF Stat Comprehensive Metabolic Panel Stat Lactate (Lactic Acid) Stat Lipase Stat Partial Thromboplastin Time Stat Procalcitonin Stat Prothrombin Time INR Stat Troponin & CK Cardiac Panel Stat 01/17/22 17:14 XR chest 1V Stat EKG-12 Lead Stat Sodium Chloride (Normal Saline 0.9%) 1,000 mls @ 150 mls/hr IV CONT INES Last Admin: 01/17/22 17:30 Dose: 150 mls/hr Documented by: KELLEE Vital Signs Vital signs: Vital Signs - 8 hr 01/17/22 16:34 01/17/22 17:01 01/17/22 17:30 Pulse Rate 67 68 64 Respiratory Rate 24 16 17 Blood Pressure 213/97 H 171/84 H 170/90 H Pulse Oximetry 95 96 96 01/17/22 18:00 01/17/22 18:30 01/17/22 19:00 Pulse Rate 72 70 73 Respiratory Rate 13 14 16 Blood Pressure 179/87 H 181/90 H 171/88 H Pulse Oximetry 96 95 96 MDM - Head Injury Lab Data Result diagrams: 01/17/22 16:45 01/17/22 16:45 Labs: Lab Results 01/17/22 01/17/22 01/17/22 Range/Units 16:45 16:45 16:45 WBC 9.2 (4.5-11.0) X10^3/uL RBC 4.40 (4.0-5.2) X10^6/uL Hgb 10.7 L (12.0-16.0) g/dL Hct 34.4 L (36-46) % MCV 78.1 L (80-100) fL MCH 24.3 L (26-34) PG MCHC 31.1 (30-36) % RDW 18.4 H (11.6-14.8) % Plt Count 292 (150-400) X10^3/uL Neut % (Auto) 78.8 H (50-75) % Lymph % (Auto) 9.5 L (25-40) % [place] % (Auto) 9.5 (3-14) % Eos % (Auto) 1.4 L (2-4) % Baso % (Auto) 0.8 (0-2) % Neut # (Auto) 7300 H (9811-7519) /uL Lymph # (Auto) 900 L (6941-6946) /uL [place] # (Auto) 900 (0-900) /uL Eos # (Auto) 100 (0-450) /uL Baso # (Auto) 100 (0-100) /uL PT 40.7 H (10.1-12.7) SECONDS INR 3.5 H (0.9-1.3) APTT 52 H (26.4-36.2) SECONDS Sodium (137-145) mmol/L Potassium (3.4-5.1) mmol/L Chloride (98-107) mmol/L Carbon Dioxide (22-32) mmol/L BUN (7-17) mg/dL Creatinine (0.52-1.04) mg/dL Estimated GFR (>60) mL/min BUN/Creatinine Ratio (6-22) Glucose (80-110) mg/dL Lactate 1.9 (0.7-2.1) mmol/L Calcium (8.4-10.2) mg/dL Total Bilirubin (0.2-1.3) mg/dL AST (14-36) IU/L ALT (<35) IU/L Alkaline Phosphatase (38-126) U/L Total Creatine Kinase (30-135) U/L CK-MB (CK-2) CK-MB (CK-2) Rel Index Troponin I (0.01-0.034) ng/mL Total Protein (6.3-8.2) g/dL Albumin (3.5-5.0) g/dL Globulin (1.7-4.1) g/dL Albumin/Globulin Ratio (1.0-2.8) Lipase (23-300) U/L Procalcitonin (<0.5) ng/mL 01/17/22 Range/Units 16:45 WBC (4.5-11.0) X10^3/uL RBC (4.0-5.2) X10^6/uL Hgb (12.0-16.0) g/dL Hct (36-46) % MCV (80-100) fL MCH (26-34) PG MCHC (30-36) % RDW (11.6-14.8) % Plt Count (150-400) X10^3/uL Neut % (Auto) (50-75) % Lymph % (Auto) (25-40) % [place] % (Auto) (3-14) % Eos % (Auto) (2-4) % Baso % (Auto) (0-2) % Neut # (Auto) (6589-2247) /uL Lymph # (Auto) (3938-2426) /uL [place] # (Auto) (0-900) /uL Eos # (Auto) (0-450) /uL Baso # (Auto) (0-100) /uL PT (10.1-12.7) SECONDS INR (0.9-1.3) APTT (26.4-36.2) SECONDS Sodium 144 (137-145) mmol/L Potassium 4.3 (3.4-5.1) mmol/L Chloride 107 (98-107) mmol/L Carbon Dioxide 28 (22-32) mmol/L BUN 20 H (7-17) mg/dL Creatinine 1.34 H (0.52-1.04) mg/dL Estimated GFR 41 L (>60) mL/min BUN/Creatinine Ratio 14.9 (6-22) Glucose 82 (80-110) mg/dL Lactate (0.7-2.1) mmol/L Calcium 9.1 (8.4-10.2) mg/dL Total Bilirubin 1.1 (0.2-1.3) mg/dL AST 40 H (14-36) IU/L ALT 23 (<35) IU/L Alkaline Phosphatase 76 (38-126) U/L Total Creatine Kinase 53 (30-135) U/L CK-MB (CK-2) TNP CK-MB (CK-2) Rel Index TNP Troponin I < 0.012 (0.01-0.034) ng/mL Total Protein 7.9 (6.3-8.2) g/dL Albumin 4.6 (3.5-5.0) g/dL Globulin 3.3 (1.7-4.1) g/dL Albumin/Globulin Ratio 1.4 (1.0-2.8) Lipase 120 (23-300) U/L Procalcitonin 0.05 (<0.5) ng/mL Imaging Data CT scan - head: Radiologist's Impression: 1. No acute intracranial process. 2. Moderate atrophy and chronic microvascular ischemic changes. 3. Left temporal occipital scalp hematoma. CT - cervical spine: Radiologist's Impression: Multiple level DJD, no acute bony injury. Chest x-ray: Radiologist's Impression: No acute pulmonary process. ECG Data Attestation: I personally reviewed and interpreted this ECG as follows: (AFib rate 60 beats per minute. Right axis deviation. Probable old septal infarct. No concerning ST T wave changes.) Discharge Plan Departure Patient Disposition: Home Clinical Impression: Hematoma of occipital region of scalp, A-fib, Anticoagulated on Coumadin Instructions: DI for Closed Head Injury Activity Restrictions/Additional Instructions: You have a small abrasion on his scalp at the point of injury. Due to the hematoma, this may ooze for period of time. Your head CT shows no internal injury. Your C-spine CT shows arthritis, but no acute injury. Your INR is 3.5. Giving the hematoma on your scalp, I would suggest skipping next Coumadin dose. You may shower at any time. Change bandages as necessary, the bleeding will of eventually dry up, the wound will scab. Follow-up with your doctor in 2-3 days to check the wound, as well as check your INR. Prescriptions: No Action ondansetron HCl [Zofran] 4 mg tablet 4 mg PO Q8H Qty: 20 0RF atorvastatin 20 mg Tablet 20 mg PO BEDTIME 0RF cyanocobalamin (vitamin B-12) [Vitamin B-12] 1,000 mcg Tablet 1,000 mcg PO DAILY 0RF warfarin 5 mg Tablet 5 mg PO QPM 0RF Rx Instructions: 1tab Sunday through Sunday with dinner. 1/2tab on Sunday gabapentin 300 mg Capsule 900 mg PO BEDTIME 0RF allopurinol 300 mg Tablet 300 mg PO DAILY 0RF furosemide 20 mg Tablet 60 mg PO QAM 0RF Rx Instructions: Take 60mg in the AM and 20mg in the PM Calcium 600 with Vitamin D3 600 mg(1,500mg) -400 unit Tablet,Chewable 1 tab PO DAILY 0RF levothyroxine 50 mcg tablet 50 mcg PO QAM 0RF Label Comments: TK 1 T PO D fluoxetine 20 mg capsule 20 mg PO DAILY 0RF Label Comments: TK 1 C PO D cetirizine [Zyrtec] 10 mg Tablet 10 mg PO DAILY 0RF ascorbic acid (vitamin C) [Vitamin C] 500 mg Tablet 500 mg PO QAM 0RF omeprazole 20 mg capsule,delayed release(DR/EC) 20 mg PO DAILY 0RF metoprolol succinate 50 mg Tablet Extended Release 24 Hr 75 mg PO BID Qty: 45 0RF meclizine 12.5 mg Tablet 25 mg PO Q6HR PRN (Reason: Vertigo) Qty: 20 0RF ferrous sulfate 325 mg (65 mg iron) Tablet 325 mg PO DAILY Qty: 30 0RF Referrals: Julien Tyler DO [Primary Care Provider] -
[2022-01-17 18:30] VITALS: BP 181/90; PULSE 70; RESP 14; O2SAT 95
[2022-01-17 19:00] VITALS: BP 171/88; PULSE 73; RESP 16; O2SAT 96
== END 2022-01-17 20:00 | disposition home or self-care (01) ==
PROVIDERS: Emergency Medicine; Emergency Provider Emergency Medicine; PCP Family Medicine
DX: S00.03XA Contusion of scalp, initial encounter (principal); W19.XXXA Unspecified fall, initial encounter; Z79.01 Long term (current) use of anticoagulants; I48.91 Unspecified atrial fibrillation
CPT/HCPCS: 36415; 70450; 71045; 72125; 80053; 82550; 83605; 83690; 84145; 84484; 85025; 85610; 85730; 93005; 93010; 99284

== ENCOUNTER 2023-01-03 17:59 | Inpatient (IN) | payer MEDICARE, SELFPAY ==
[2019-12-29 17:55] VITALS: BMI 36.8
[2023-01-03] VITALS (10 sets, daily range): BP systolic 115–170; BP diastolic 58–85; PULSE 65–86; RESP 18–29; TEMP 36.7; O2SAT 88–97; BMI 29.5
--- NOTE | 2023-01-03 18:11 | DI.RAD.S_ITS ---
PROCEDURE: XR CHEST 1V INDICATIONS: chest pain TECHNIQUE: One view of the chest was acquired. COMPARISON: [facility], CR, XR CHEST 1 VIEW, 03/16/2022, 21:50. FINDINGS: Surgical changes and devices: None. Lungs and pleura: Lungs are clear. No pleural effusions or pneumothorax. Mediastinum: Large hiatal hernia. Mediastinal contours otherwise appear normal. Heart size is normal. Bones and chest wall: No suspicious bony lesions. Overlying soft tissues appear unremarkable. IMPRESSION: No acute process. Dictated by: Julia Mark M.D. on 01/03/2023 at 18:38 Approved by: Julia Mark M.D. on 01/03/2023 at 18:38
[2023-01-03 18:47] LABS: Add Manual Diff / Slide Review NO; Basophils Absolute Auto 100 /uL (0-100); Basophils Percent Auto 0.9 % (0-2); Eosinophils Absolute Auto 0 /uL (0-450); Eosinophils Percent Auto 0.2 % (2-4); Hematocrit 34.7 % (36-46); Hemoglobin 10.8 g/dL (12.0-16.0); Lymphocytes Absolute Auto 900 /uL (1100-4500); Lymphocytes Percent Auto 5.6 % (25-40); Mean Corpuscular Volume 77.3 fL (80-100); Monocytes Absolute Auto 2000 /uL (0-900); Monocytes Percent Auto 12.7 % (3-14); Neutrophils Absolute Auto 12600 /uL (1500-7000); Neutrophils Percent Auto 80.6 % (50-75); Platelet Count 263 X10^3/uL (150-400); Red Blood Cell Count 4.49 X10^6/uL (4.0-5.2); Red Cell Distribution Width 19.7 % (11.6-14.8); White Blood Cell Count 15.6 X10^3/uL (4.5-11.0)
[2023-01-03 18:48] LABS: INR 3.2 (0.9-1.3); Prothrombin Time 37.7 SECONDS (10.1-12.7)
[2023-01-03 18:51] LABS: PTT Partial Thromboplastin Tim 50 SECONDS (26-36)
[2023-01-03 18:53] LABS: Alanine Aminotransferase 19 IU/L (<35); Albumin 4.3 g/dL (3.5-5.0); Albumin Globulin Ratio 1.4 (1.0-2.8); Alkaline Phosphatase 71 U/L (38-126); Aspartate Aminotransferase 26 IU/L (14-36); BUN Creatinine Ratio 17.1 (6-22); Bilirubin Total 2.6 mg/dL (0.2-1.3); Blood Urea Nitrogen 19 mg/dL (7-17); Carbon Dioxide 28 mmol/L (22-32); Chloride 102 mmol/L (98-107); Creatine Kinase 48 U/L (30-135); Estimated Glomerular Filt Rate 51 mL/min (>60); Globulin 3.1 g/dL (1.7-4.1); Glucose 96 mg/dL (80-110); HEMOLYSIS < 15 (0-50); Lipase 42 U/L (23-300); Magnesium 1.8 mg/dL (1.6-2.3); Potassium 4.1 mmol/L (3.4-5.1); Sodium 141 mmol/L (137-145); Total Protein 7.4 g/dL (6.3-8.2)
[2023-01-03 19:05] LABS: Troponin I 0.013 ng/mL (0.01-0.034)
--- NOTE | 2023-01-03 19:28 | DI.CT.S_ITS ---
PROCEDURE: CT CERVICAL SPINE WO CON INDICATIONS: ? syncope vs. fall TECHNIQUE: Noncontrast 3 mm thick sections acquired from the skull base to the T4 level. Sagittal and coronal reformats were then constructed. For radiation dose reduction, the following was used: automated exposure control, adjustment of mA and/or kV according to patient size. COMPARISON: None. FINDINGS: Image quality: Excellent. Bones: No fractures or dislocations. Visualized superior ribs are intact. Soft tissues: Prevertebral soft tissues are normal in thickness. No paravertebral hematomas. No apical pneumothoraces. IMPRESSION: No fracture. Dictated by: Julia Mark M.D. on 01/03/2023 at 19:52 Approved by: Julia Mark M.D. on 01/03/2023 at 19:53
--- NOTE | 2023-01-03 19:28 | DI.CT.S_ITS ---
PROCEDURE: CT HEAD/BRAIN WO CON INDICATIONS: ?syncope, found on ground TECHNIQUE: Noncontrast 4.5 mm thick angled axial sections acquired from the foramen magnum to the vertex, with coronal and sagittal reformats. For radiation dose reduction, the following was used: automated exposure control, adjustment of mA and/or kV according to patient size. COMPARISON: None. FINDINGS: Image quality: Excellent. CSF spaces: Basal cisterns are patent. No extra-axial fluid collections. The ventricles are symmetric in size and shape. Brain: No intracranial bleeds or masses. 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 There is cerebral volume loss for age, with resultant ventricular and sulcal prominence. There are periventricular and deep white matter chronic small vessel ischemic changes. There is intracranial internal carotid artery atherosclerosis. Skull and face: Calvarium and visualized facial bones appear intact, without suspicious lesions. Sinuses: Visualized sinuses and mastoids are clear. IMPRESSION: 1. No acute intracranial abnormality. 2. 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 Dictated by: Julia Mark M.D. on 01/03/2023 at 19:51 Approved by: Julia Mark M.D. on 01/03/2023 at 19:51
[2023-01-03 19:36] LABS: D Dimer 1289 ng/ml (<500)
--- NOTE | 2023-01-03 21:33 | DI.CT.S_ITS ---
PROCEDURE: CT ANGIO CHEST PE PROTOCOL INDICATIONS: syncope, +dimer TECHNIQUE: After the administration of intravenous contrast, 2 mm thick sections acquired from the pulmonary apices to the posterior costophrenic angles. 3-dimensional maximum intensity projection (MIP) coronal and sagittal reformats were then acquired through the thorax. For radiation dose reduction, the following was used: automated exposure control, adjustment of mA and/or kV according to patient size. COMPARISON: [facility], CT, CT HIGH RESOLUTION CHEST, 10/31/2019, 13:03. FINDINGS: Image quality: Excellent. Pulmonary arteries: Pulmonary arteries demonstrate no intraluminal filling defects to suggest central pulmonary embolism. There is enlargement of the pulmonary arteries, with the main pulmonary artery measuring up to 3.6 cm suggestive of pulmonary arterial hypertension. Lower Neck: No lymphadenopathy by size criteria. Thyroid: Visualized thyroid demonstrates no discrete nodules. Axillae: No lymphadenopathy by size criteria. Chest Wall: Unremarkable. Bones: Visualized osseous structures demonstrate no suspicious lesions. Lungs and Airways: There is confluent consolidation in the left lingula and milder peribronchial consolidation in the left lower lobe along the left hemidiaphragm. Dependent atelectasis is demonstrated bilaterally. A few indistinct ground-glass opacities with mild septal thickening demonstrated suggestive of mild pulmonary edema. The trachea and central airways are patent. Pleura: No pneumothorax. There is a minimal left pleural effusion. Heart: Heart size is enlarged. No pericardial effusion. Thoracic Vessels: The thoracic aorta is normal in size. Mediastinum and Rachele: No lymphadenopathy by size criteria. Esophagus: No wall thickening. There is a large hiatal hernia. Abdomen: Visualized upper abdominal solid organs appear normal in the early arterial phase of enhancement. IMPRESSION: 1. No evidence of central pulmonary embolism. There is enlargement of the pulmonary arteries suggestive of pulmonary arterial hypertension. 2. Consolidation in the left lingula and lower lobe suggestive of pneumonia. 3. Suspected mild pulmonary edema. 4. Large hiatal hernia. Dictated by: Clint Williamson M.D. on 01/03/2023 at 23:17 Approved by: Clint Williamson M.D. on 01/03/2023 at 23:21
[2023-01-03 21:58] LABS: Troponin I 0.013 ng/mL (0.01-0.034)
--- NOTE | 2023-01-03 21:58 | ED_ITS ---
HPI - Syncope General Chief Complaint: Syncope Stated Complaint: found on ground this am Time Seen by Provider: 01/03/23 19:27 Source: patient Mode of arrival: Wheelchair Limitations: no limitations History of Present Illness HPI narrative: This is a 77-year-old female with history of arrhythmias, hypertension, prior stroke with persistent expressive aphasia and had a prior right-sided deficit which has since improved, glaucoma who presented with what sounds like a syncopal episode she got from a chair notable for went to pick it up and does not remember that are getting to the bathroom or the bedroom. She states there was a dreamlike state where she was calling out individuals but she is not sure if it was really a dream her she was awake. She woke up on the floor crawled to the bathroom and got herself up to standing. She denies headache, no chest pain, no shortness of breath, no nausea no vomiting no numbness, tingling weakness or other movement changes. She is some mild aphasia which she states is her normal baseline her son also corroborates this. She denies any new balance issues. She did not have any bowel or bladder incontinence. She is not had similar episodes in the past. She denies any fevers or chills, no cold cough or congestion. Patient states she is had prior hysterectomy. Allergic to lisinopril. No tobacco, alcohol or illicit. Her primary care is Donna bl[facility]. Patient is accompanied by her son who states she is at her normal and usual baseline. Patient states she has not had similar episodes in the past. Related Data Home Medications Medication Instructions Recorded Confirmed allopurinol 300 mg tablet 300 mg PO DAILY 12/29/19 01/04/23 ascorbic acid (vitamin C) 500 mg 500 mg PO QAM 12/29/19 01/04/23 tablet (Vitamin C) atorvastatin 20 mg tablet 20 mg PO BEDTIME 12/29/19 01/04/23 calcium carbonate 600 mg-vitamin 1 tab PO DAILY 12/29/19 01/04/23 D3 10 mcg (400 unit) chewable tablet (Calcium 600 with Vitamin D3) cetirizine 10 mg tablet (Zyrtec) 10 mg PO PRN PRN Allergy Symptoms 12/29/19 01/04/23 cyanocobalamin (vitamin B-12) 1,000 mcg PO DAILY 12/29/19 01/04/23 1,000 mcg tablet (Vitamin B-12) fluoxetine 20 mg capsule 20 mg PO BID 12/29/19 01/04/23 gabapentin 300 mg capsule 900 mg PO BEDTIME 12/29/19 01/04/23 levothyroxine 50 mcg tablet 50 mcg PO QAM 12/29/19 01/04/23 omeprazole 20 mg capsule,delayed 20 mg PO DAILY 12/29/19 01/04/23 release warfarin 5 mg tablet 5 mg PO QPM 12/29/19 01/04/23 Previous Rx's Medication Instructions Recorded metoprolol succinate 50 mg 75 mg PO BID #45 tabs 01/01/20 tablet,extended release 24 hr azithromycin 500 mg tablet 500 mg PO DAILY 2 days #2 tabs 01/04/23 cefdinir 300 mg capsule 300 mg PO BID 3 days #6 caps 01/04/23 Allergies Allergy/AdvReac Type Severity Reaction Status Date / Time amlodipine [AMLODIPINE] Allergy Unknown Verified 01/03/23 18:05 dexlansoprazole Allergy Unknown Verified 01/03/23 18:05 [From DEXILANT] lisinopril [LISINOPRIL] Allergy Unknown Verified 01/03/23 18:05 simvastatin [SIMVASTATIN] Allergy Unknown Verified 01/03/23 18:05 diltiazem Allergy Verified 01/03/23 18:05 Review of Systems Review of Systems ROS Unobtainable: All systems reviewed & are unremarkable except as noted in HPI and below Patient History Medical History Anticoagulated on Coumadin Atrial fibrillation Gout History of multiple cerebrovascular accidents (CVAs) Hypertension Hypothyroidism Surgical History No significant past surgical history Social History household members: none Smoking Status: Never smoker alcohol intake: never Smoking Status: Never smoker alcohol intake frequency: 0-2 drinks per day Substance Use Type: does not use Exam Narrative Exam Narrative: GENERAL: Alert and oriented x three, elderly female in mild distress. HEENT: Head normocephalic, atraumatic, EOMI, pupils reactive, face symmetric, moist mucous membranes NECK: Supple, full range of motion CARDIOVASCULAR: Regular rate and rhythm without murmurs, rubs or gallops. No sw elling bilateral lower extremities. RESPIRATORY: Breath sounds equal bilaterally, no wheezes rales or rhonchi. No tachypnea accessory muscle use. Speaks in full sentences. ABDOMEN: Soft, nontender. Normoactive bowel sounds all 4 quadrants. No guarding or rebound, rigidity, no mass : No CVA tenderness EXTREMITIES: Normal range of motion, no clubbing or edema. Neurovascularly intact NEUROLOGICAL: Cranial nerves II through XII grossly intact. Moving all extremities. Patient has mild dysarthria states it is her baseline son also states patient's normal baseline. Full range of motion bilateral extremities, 5/5 muscle strength upper and lower. SKIN: Warm, dry, no petechiae, no rashes or lesions. Initial Vital Signs Initial Vital Signs: Vital Signs Temperature 98.0 F 01/03/23 18:05 Pulse Rate 65 01/03/23 18:05 Respiratory Rate 18 01/03/23 18:05 Blood Pressure 133/66 01/03/23 18:05 Pulse Oximetry 95 01/03/23 18:05 Oxygen Delivery Method Room Air 01/03/23 18:05 Course Orders Ordered: Discontinued Medications Acetaminophen (Acetaminophen 325 Mg Tablet) 650 mg PO Q6H PRN PRN Reason: Fever/Mild Pain (1-3) Famotidine (Famotidine 20 Mg Tablet) 20 mg PO BID [facility] Last Admin: 01/04/23 08:28 Dose: 20 mg Documented By: FOSTER Furosemide (Furosemide 40 Mg/4 Ml Vial) 40 mg IV NOW ONE Stop: 01/04/23 10:37 Last Admin: 01/04/23 11:03 Dose: 40 mg Documented By: FOSTER Ceftriaxone Sodium 2,000 mg/ (Sodium Chloride) 100 mls @ 200 mls/hr IV NOW ONE Stop: 01/04/23 00:01 Last Infusion: 01/04/23 01:39 Dose: 0 mls/hr Documented By: Admin: 01/04/23 00:06 Dose: 200 mls/hr Documented By: THU Ceftriaxone Sodium 1,000 mg/ (Sodium Chloride) 100 mls @ 200 mls/hr IV Q24H [facility] Azithromycin 500 mg/ Dextrose 250 mls @ 250 mls/hr IV Q24H [facility] Last Infusion: 01/04/23 08:22 Dose: 0 mls/hr Documented By: Admin: 01/04/23 04:49 Dose: 250 mls/hr Documented By: Ceftriaxone Sodium 1,000 mg/ (Sodium Chloride) 100 mls @ 200 mls/hr IV Q24H [facility] Last Admin: 01/04/23 11:52 Dose: 200 mls/hr Documented By: FOSTER Naloxone HCl (Naloxone 0.4 Mg/Ml Vial) 0.2 mg IV Q2MIN PRN PRN Reason: Opiate Reversal Ondansetron HCl (Ondansetron 4 Mg/2 Ml Inj) 4 mg IV Q8HR PRN PRN Reason: Nausea And Vomiting Vital Signs Vital signs: Vital Signs - 8 hr 01/03/23 18:05 01/03/23 20:42 01/03/23 20:44 Temperature 98.0 F Pulse Rate 65 72 73 Respiratory Rate 18 26 H 29 H Blood Pressure 133/66 Pulse Oximetry 95 94 95 Oxygen Delivery Method Room Air Oxygen Flow Rate 01/03/23 20:44 01/03/23 21:00 01/03/23 21:00 Temperature Pulse Rate 71 Respiratory Rate 24 Blood Pressure 156/72 H 159/74 H Pulse Oximetry 96 Oxygen Delivery Method Oxygen Flow Rate 01/03/23 21:30 01/03/23 21:30 01/03/23 22:22 Temperature Pulse Rate 69 86 Respiratory Rate 28 H 26 H Blood Pressure 162/74 H Pulse Oximetry 97 Oxygen Delivery Method Oxygen Flow Rate 01/03/23 22:23 01/03/23 22:23 01/03/23 22:30 Temperature Pulse Rate 73 Respiratory Rate 27 H Blood Pressure 115/58 L 170/74 H Pulse Oximetry 89 L Oxygen Delivery Method Oxygen Flow Rate 01/03/23 22:30 01/03/23 23:00 01/03/23 23:00 Temperature Pulse Rate 72 70 Respiratory Rate 24 27 H Blood Pressure 142/85 H Pulse Oximetry 94 92 Oxygen Delivery Method Oxygen Flow Rate 01/03/23 23:30 01/03/23 23:30 Temperature Pulse Rate 71 Respiratory Rate Blood Pressure 145/68 H Pulse Oximetry 88 L Oxygen Delivery Method Nasal Cannula Oxygen Flow Rate 2 MDM - Syncope Lab Data 01/04/23 06:07 01/04/23 06:07 Labs: Lab Results 01/03/23 01/03/23 01/03/23 Range/Units 18:28 18:28 18:28 WBC 15.6 H (4.5-11.0) X10^3/uL RBC 4.49 (4.0-5.2) X10^6/uL Hgb 10.8 L (12.0-16.0) g/dL Hct 34.7 L (36-46) % MCV 77.3 L (80-100) fL MCH 24.0 L (26-34) PG MCHC 31.0 (30-36) % RDW 19.7 H (11.6-14.8) % Plt Count 263 (150-400) X10^3/uL Neut % (Auto) 80.6 H (50-75) % Lymph % (Auto) 5.6 L (25-40) % [place] % (Auto) 12.7 (3-14) % Eos % (Auto) 0.2 L (2-4) % Baso % (Auto) 0.9 (0-2) % Neut # (Auto) 40597 H (8773-1891) /uL Lymph # (Auto) 900 L (8463-5824) /uL [place] # (Auto) 2000 H (0-900) /uL Eos # (Auto) 0 (0-450) /uL Baso # (Auto) 100 (0-100) /uL PT 37.7 H (10.1-12.7) SECONDS INR 3.2 H (0.9-1.3) APTT 50 H (26-36) SECONDS D-Dimer (<500) ng/ml Sodium 141 (137-145) mmol/L Potassium 4.1 (3.4-5.1) mmol/L Chloride 102 (98-107) mmol/L Carbon Dioxide 28 (22-32) mmol/L BUN 19 H (7-17) mg/dL Creatinine 1.11 H (0.52-1.04) mg/dL Estimated GFR 51 L (>60) mL/min BUN/Creatinine Ratio 17.1 (6-22) Glucose 96 (80-110) mg/dL Calcium 9.0 (8.4-10.2) mg/dL Magnesium 1.8 (1.6-2.3) mg/dL Total Bilirubin 2.6 H (0.2-1.3) mg/dL AST 26 (14-36) IU/L ALT 19 (<35) IU/L Alkaline Phosphatase 71 (38-126) U/L Total Creatine Kinase 48 (30-135) U/L CK-MB (CK-2) TNP CK-MB (CK-2) Rel Index TNP Troponin I 0.013 (0.01-0.034) ng/mL NT-Pro-B Natriuret Pep (<450) pg/mL Total Protein 7.4 (6.3-8.2) g/dL Albumin 4.3 (3.5-5.0) g/dL Globulin 3.1 (1.7-4.1) g/dL Albumin/Globulin Ratio 1.4 (1.0-2.8) Lipase 42 (23-300) U/L SARS-CoV-2 (PCR) (Negative) 01/03/23 01/03/23 01/03/23 Range/Units 18:28 21:15 21:15 WBC (4.5-11.0) X10^3/uL RBC (4.0-5.2) X10^6/uL Hgb (12.0-16.0) g/dL Hct (36-46) % MCV (80-100) fL MCH (26-34) PG MCHC (30-36) % RDW (11.6-14.8) % Plt Count (150-400) X10^3/uL Neut % (Auto) (50-75) % Lymph % (Auto) (25-40) % [place] % (Auto) (3-14) % Eos % (Auto) (2-4) % Baso % (Auto) (0-2) % Neut # (Auto) (9109-1632) /uL Lymph # (Auto) (2147-6485) /uL [place] # (Auto) (0-900) /uL Eos # (Auto) (0-450) /uL Baso # (Auto) (0-100) /uL PT (10.1-12.7) SECONDS INR (0.9-1.3) APTT (26-36) SECONDS D-Dimer 1289 H (<500) ng/ml Sodium (137-145) mmol/L Potassium (3.4-5.1) mmol/L Chloride (98-107) mmol/L Carbon Dioxide (22-32) mmol/L BUN (7-17) mg/dL Creatinine (0.52-1.04) mg/dL Estimated GFR (>60) mL/min BUN/Creatinine Ratio (6-22) Glucose (80-110) mg/dL Calcium (8.4-10.2) mg/dL Magnesium (1.6-2.3) mg/dL Total Bilirubin (0.2-1.3) mg/dL AST (14-36) IU/L ALT (<35) IU/L Alkaline Phosphatase (38-126) U/L Total Creatine Kinase (30-135) U/L CK-MB (CK-2) CK-MB (CK-2) Rel Index Troponin I 0.013 (0.01-0.034) ng/mL NT-Pro-B Natriuret Pep 7530 H (<450) pg/mL Total Protein (6.3-8.2) g/dL Albumin (3.5-5.0) g/dL Globulin (1.7-4.1) g/dL Albumin/Globulin Ratio (1.0-2.8) Lipase (23-300) U/L SARS-CoV-2 (PCR) (Negative) 01/03/23 Range/Units 22:58 WBC (4.5-11.0) X10^3/uL RBC (4.0-5.2) X10^6/uL Hgb (12.0-16.0) g/dL Hct (36-46) % MCV (80-100) fL MCH (26-34) PG MCHC (30-36) % RDW (11.6-14.8) % Plt Count (150-400) X10^3/uL Neut % (Auto) (50-75) % Lymph % (Auto) (25-40) % [place] % (Auto) (3-14) % Eos % (Auto) (2-4) % Baso % (Auto) (0-2) % Neut # (Auto) (3231-3742) /uL Lymph # (Auto) (8946-8311) /uL [place] # (Auto) (0-900) /uL Eos # (Auto) (0-450) /uL Baso # (Auto) (0-100) /uL PT (10.1-12.7) SECONDS INR (0.9-1.3) APTT (26-36) SECONDS D-Dimer (<500) ng/ml Sodium (137-145) mmol/L Potassium (3.4-5.1) mmol/L Chloride (98-107) mmol/L Carbon Dioxide (22-32) mmol/L BUN (7-17) mg/dL Creatinine (0.52-1.04) mg/dL Estimated GFR (>60) mL/min BUN/Creatinine Ratio (6-22) Glucose (80-110) mg/dL Calcium (8.4-10.2) mg/dL Magnesium (1.6-2.3) mg/dL Total Bilirubin (0.2-1.3) mg/dL AST (14-36) IU/L ALT (<35) IU/L Alkaline Phosphatase (38-126) U/L Total Creatine Kinase (30-135) U/L CK-MB (CK-2) CK-MB (CK-2) Rel Index Troponin I (0.01-0.034) ng/mL NT-Pro-B Natriuret Pep (<450) pg/mL Total Protein (6.3-8.2) g/dL Albumin (3.5-5.0) g/dL Globulin (1.7-4.1) g/dL Albumin/Globulin Ratio (1.0-2.8) Lipase (23-300) U/L SARS-CoV-2 (PCR) Negative (Negative) Imaging Data CT scan - chest: Radiologist's Impression: Close Chest CTA (Signed) Clint Williamson - 01/03/[address] (Signed) Julia Mark - 01/03/[address] (Signed) Julia Mark - 01/03/23 Chest X-Ray (Signed) Julia Mark - 01/03/23 Chest X-Ray (Signed) Carolyn Brown - 01/17/[address] (Signed) Carolyn Brown - 01/17/[address] (Signed) Carolyn Brown - 01/17/22 Telemetry Strips 12/30/19 Echocardiogram Ultrasound (Signed) Caryn Alberto - 12/29/19 Brain MRI (Signed) Ubaldo Melendrez - 12/29/[address] (Signed) Carolyn Brown - 12/29/19 PFT Result 01/31/19 Launch?[address] [address] [address] Scan Report Signed Patient: Sybil Wadsworth MR#: [id number] : 1945 Acct:[id number] Age/Sex: 77 / F Date of Service: 01/03/23 Loc: ED Accession Number: [id number] ?? Procedure: CT angio chest PE protocol Ordering Provider: Carey Lao D.O. PROCEDURE:? CT ANGIO CHEST PE PROTOCOL ? INDICATIONS:? syncope, +dimer ? TECHNIQUE:? After the administration of intravenous contrast, 2 mm thick sections acquired from the pulmonary apices to the posterior costophrenic angles.? 3-dimensional maximum intensity projection (MIP) coronal and sagittal reformats were then acquired through the thorax.? For radiation dose reduction, the following was used:? automated exposure control, adjustment of mA and/or kV according to patient size.? ? COMPARISON:? [facility], CT, CT HIGH RESOLUTION CHEST, 10/31/2019, 13:03. ? FINDINGS:? Image quality:? Excellent.? ? Pulmonary arteries:? Pulmonary arteries demonstrate no intraluminal filling defects to suggest central pulmonary embolism.? There is enlargement of the pulmonary arteries, with the main pulmonary artery measuring up to 3.6 cm suggestive of pulmonary arterial hypertension.? ? Lower Neck: No lymphadenopathy by size criteria. Thyroid:? Visualized thyroid demonstrates no discrete nodules. Axillae: No lymphadenopathy by size criteria. Chest Wall:? Unremarkable.? Bones: Visualized osseous structures demonstrate no suspicious lesions. ? Lungs and Airways:? There is confluent consolidation in the left lingula and milder peribronchial consolidation in the left lower lobe along the left hemidiaphragm.? Dependent atelectasis is demonstrated bilaterally.? A few indistinct ground-glas s opacities with mild septal thickening demonstrated suggestive of mild pulmonary edema.? The trachea and central airways are patent. Pleura: No pneumothorax.? There is a minimal left pleural effusion.? ? Heart: Heart size is enlarged.? No pericardial effusion. Thoracic Vessels: The thoracic aorta is normal in size.? Mediastinum and Rachele: No lymphadenopathy by size criteria. Esophagus: No wall thickening.? There is a large hiatal hernia. ? Abdomen:? Visualized upper abdominal solid organs appear normal in the early arterial phase of enhancement.? ? IMPRESSION:? ? 1. No evidence of central pulmonary embolism.? There is enlargement of the pulmonary arteries suggestive of pulmonary arterial hypertension. ? 2. Consolidation in the left lingula and lower lobe suggestive of pneumonia. ? 3. Suspected mild pulmonary edema. ? 4. Large hiatal hernia. ? ? Dictated by: Clint Williamson M.D. on 01/03/2023 at 23:17 ? ? Approved by: Clint Williamson M.D. on 01/03/2023 at 23:21?? ECG Data Attestation: I personally reviewed and interpreted this ECG as follows: Interpretation: AFib rate of 62 right axis deviation, QRS of 88 QTC has 420. Nonspecific change. EKG 2. Atrial fibrillation rate of 75 QRS [address] QTC [address]. No acute ST elevation. Nonspecific change. No dynamic changes from EKG 1 2 EKG 2. MDM Narrative Medical decision making narrative: 69-year-old female had what is possibly a syncopal episode although she describes a dreamlike state also. No changes consistent with seizure from her description. Workup showed an elevated dimer so CT angio was obtained no PE but maybe some mild pulmonary edema and does have what appears to be left lingular left lobar pneumonia. Patient has not had other symptoms. No acute neurologic changes. On ambulatory pulse ox patient drops into the mid to low 80s. Patient was started on IV antibiotic, minimal fluids for possible pulmonary edema and case was discussed with hospitalist who accepts for admission. Discharge Plan Departure Patient Disposition: Admitted As Inpatient Clinical Impression: Pneumonia, Syncope Admit Date/Time: 01/04/23 01:21 Admit Provider: Chandra William
--- NOTE | 2023-01-03 22:00 | PC.NURSE ---
pt had syncopal episode earlier today only remembers waking up on the floor is awake and alert at this time
[2023-01-03 23:41] LABS: COVID19 -Nasal RAPID Negative (Negative)
--- NOTE | 2023-01-03 23:55 | PC.NURSE ---
pt ambulated per ANTOINETTE Rogel with a drop in O2 sat to 81% Dr Lao informed
[2023-01-04] VITALS (11 sets, daily range): BP systolic 115–160; BP diastolic 55–78; PULSE 59–78; RESP 16–24; TEMP 36.2–36.7; O2SAT 90–98; BMI 29.5
[2023-01-04] MEDS: cefTRIAXone 2,000 MG in SODIUM CHLORIDE 0.9% 100 ML 200 MG IV (00:06)
--- NOTE | 2023-01-04 00:39 | PC.NURSE ---
Pt sleeping. Noted to desat to 88%. Pt reports normally uses 2L at night. Pt placed on 2L nasal cannula.
--- NOTE | 2023-01-04 02:09 | PM.HP.1 ---
History of Present Illness History of Present Illness Date Patient Seen: 01/04/23 Time Patient Seen: 01:30 Chief complaint: found on ground this am Narrative: Ms. Wadsworth is a 77W with PMH afib, CVA with dysarthria, HTN, hypothyroidism who presents to the hospital after waking up on the floor. She is unclear of the circumstances of how she ended up on the floor. She does not recall a fall. Earlier in the day she had been in her normal state of health. She had no symptoms or concerns with no weakness, lightheadedness, cough, shortness of breath, nausea, vomiting, diarrhea, or abdominal pain. She thought she was maybe in a dreaming or maybe sleepwalking state, she is not sure, and then she awoke on the floor. She could not get up off the floor, she is not sure why, she can't state if she was too weak or lightheaded or disoriented. Once she is here in the ED, she states that aside from feeling tired, she feels her normal state of health. She does use oxygen at home, she is not sure why, has used it for 2 years, but only uses it at night. In the ED workup was done, vitals notable for afebrile, heart rate in the 60s, respiratory rate in the teens, blood pressure 130s/60s, sats 95% on room air. O2 sats dropped to the 80s, she was in the low 80s with activity. She was placed on oxygen. Labs reviewed by me and notable for WBC 15.6, hgb 10.8, plts 263. Na 141, creatinine 1.11. INR 3.2. Bili 2.6. Trop 0.013. D-dimer 1289. Chest xray reviewed by me and negative for any acute process. Head CT showed old stroke. CTA chest showed left lower lobe consolidation and possible pulmonary edema, and large hiatal hernia. She was ordered for antibiotics and admitted for further treatment [facility] Medical History Anticoagulated on Coumadin Atrial fibrillation Gout History of multiple cerebrovascular accidents (CVAs) Hypertension Hypothyroidism Surgical History No significant past surgical history Social History household members: none Smoking Status: Never smoker alcohol intake: current Meds Home Medications and Allergies Home Medications Medication Instructions Recorded Confirmed Type allopurinol 300 mg tablet 300 mg PO DAILY 12/29/19 12/29/19 History ascorbic acid (vitamin C) 500 mg 500 mg PO QAM 12/29/19 12/29/19 History tablet (Vitamin C) atorvastatin 20 mg tablet 20 mg PO BEDTIME 12/29/19 12/29/19 History calcium carbonate 600 mg-vitamin 1 tab PO DAILY 12/29/19 12/29/19 History D3 10 mcg (400 unit) chewable tablet (Calcium 600 with Vitamin D3) cetirizine 10 mg tablet (Zyrtec) 10 mg PO DAILY 12/29/19 12/29/19 History cyanocobalamin (vitamin B-12) 1,000 mcg PO DAILY 12/29/19 12/29/19 History 1,000 mcg tablet (Vitamin B-12) fluoxetine 20 mg capsule 20 mg PO DAILY 12/29/19 12/29/19 History furosemide 20 mg tablet 60 mg PO QAM 12/29/19 12/29/19 History gabapentin 300 mg capsule 900 mg PO BEDTIME 12/29/19 12/29/19 History levothyroxine 50 mcg tablet 50 mcg PO QAM 12/29/19 12/29/19 History omeprazole 20 mg capsule,delayed 20 mg PO DAILY 12/29/19 12/29/19 History release ondansetron HCl 4 mg tablet 4 mg PO Q8H #20 tabs 12/29/19 Rx (Zofran) warfarin 5 mg tablet 5 mg PO QPM 12/29/19 12/29/19 History ferrous sulfate 325 mg (65 mg 325 mg PO DAILY #30 tabs 01/01/20 Rx iron) tablet meclizine 12.5 mg tablet 25 mg PO Q6HR PRN Vertigo #20 tabs 01/01/20 Rx metoprolol succinate 50 mg 75 mg PO BID #45 tabs 01/01/20 Rx tablet,extended release 24 hr Allergies Allergy/AdvReac Type Severity Reaction Status Date / Time amlodipine [AMLODIPINE] Allergy Unknown Verified 01/03/23 18:05 dexlansoprazole Allergy Unknown Verified 01/03/23 18:05 [From DEXILANT] lisinopril [LISINOPRIL] Allergy Unknown Verified 01/03/23 18:05 simvastatin [SIMVASTATIN] Allergy Unknown Verified 01/03/23 18:05 diltiazem Allergy Verified 01/03/23 18:05 Review of Systems Review of Systems Narrative: 14 systems reviewed and negative aside from what is noted in HPI Exam Vital Signs (past 8 hours): - 01/03/23 20:42 01/03/23 20:44 01/03/23 20:44 Pulse Rate 72 73 Respiratory Rate 26 H 29 H Blood Pressure 156/72 H Pulse Oximetry 94 95 Oxygen Delivery Method Oxygen Flow Rate 01/03/23 21:00 01/03/23 21:00 01/03/23 21:30 Pulse Rate 71 Respiratory Rate 24 Blood Pressure 159/74 H 162/74 H Pulse Oximetry 96 Oxygen Delivery Method Oxygen Flow Rate 01/03/23 21:30 01/03/23 22:22 01/03/23 22:23 Pulse Rate 69 86 73 Respiratory Rate 28 H 26 H 27 H Blood Pressure Pulse Oximetry 97 89 L Oxygen Delivery Method Oxygen Flow Rate 01/03/23 22:23 01/03/23 22:30 01/03/23 22:30 Pulse Rate 72 Respiratory Rate 24 Blood Pressure 115/58 L 170/74 H Pulse Oximetry 94 Oxygen Delivery Method Oxygen Flow Rate 01/03/23 23:00 01/03/23 23:00 01/03/23 23:30 Pulse Rate 70 Respiratory Rate 27 H Blood Pressure 142/85 H 145/68 H Pulse Oximetry 92 Oxygen Delivery Method Oxygen Flow Rate 01/03/23 23:30 01/04/23 00:00 01/04/23 00:01 Pulse Rate 71 68 73 Respiratory Rate 20 18 Blood Pressure Pulse Oximetry 88 L 92 93 Oxygen Delivery Method Nasal Cannula Oxygen Flow Rate 2 01/04/23 00:01 01/04/23 00:30 01/04/23 00:30 Pulse Rate 70 Respiratory Rate 24 Blood Pressure 160/76 H 139/65 Pulse Oximetry 91 Oxygen Delivery Method Oxygen Flow Rate 01/04/23 01:00 01/04/23 01:00 01/04/23 01:30 Pulse Rate 75 Respiratory Rate 24 Blood Pressure 115/62 130/69 Pulse Oximetry 98 Oxygen Delivery Method Oxygen Flow Rate 01/04/23 01:30 Pulse Rate 73 Respiratory Rate 17 Blood Pressure Pulse Oximetry 96 Oxygen Delivery Method Oxygen Flow Rate Oxygen Delivery Method Nasal Cannula Oxygen Flow Rate 2 Narrative Exam Narrative: GEN: no acute distress, fatigued HEENT: moist mucous membranes, PERRL NECK: trachea midline, no JVD PULM: clear bilaterally, no wheezes, rhonchi, rales CV: irregular with no murmurs ABD: soft, nontender, nondistended, no organomegaly EXT; warm and well perfused, trace edema NEURO: halting speech, word finding difficulty, dysarthria Objective Labs 01/03/23 18:28 01/03/23 18:28 Labs: Laboratory Results - last 24 hr 01/03/23 01/03/23 01/03/23 18:28 18:28 18:28 WBC 15.6 H RBC 4.49 Hgb 10.8 L Hct 34.7 L MCV 77.3 L MCH 24.0 L MCHC 31.0 RDW 19.7 H Plt Count 263 Neut % (Auto) 80.6 H Lymph % (Auto) 5.6 L [place] % (Auto) 12.7 Eos % (Auto) 0.2 L Baso % (Auto) 0.9 Neut # (Auto) 81282 H Lymph # (Auto) 900 L [place] # (Auto) 2000 H Eos # (Auto) 0 Baso # (Auto) 100 PT 37.7 H INR 3.2 H APTT 50 H D-Dimer Sodium 141 Potassium 4.1 Chloride 102 Carbon Dioxide 28 BUN 19 H Creatinine 1.11 H Estimated GFR 51 L BUN/Creatinine Ratio 17.1 Glucose 96 Calcium 9.0 Magnesium 1.8 Total Bilirubin 2.6 H AST 26 ALT 19 Alkaline Phosphatase 71 Total Creatine Kinase 48 CK-MB (CK-2) TNP CK-MB (CK-2) Rel Index TNP Troponin I 0.013 Total Protein 7.4 Albumin 4.3 Globulin 3.1 Albumin/Globulin Ratio 1.4 Lipase 42 SARS-CoV-2 (PCR) 01/03/23 01/03/23 01/03/23 18:28 21:15 22:58 WBC RBC Hgb Hct MCV MCH MCHC RDW Plt Count Neut % (Auto) Lymph % (Auto) [place] % (Auto) Eos % (Auto) Baso % (Auto) Neut # (Auto) Lymph # (Auto) [place] # (Auto) Eos # (Auto) Baso # (Auto) PT INR APTT D-Dimer 1289 H Sodium Potassium Chloride Carbon Dioxide BUN Creatinine Estimated GFR BUN/Creatinine Ratio Glucose Calcium Magnesium Total Bilirubin AST ALT Alkaline Phosphatase Total Creatine Kinase CK-MB (CK-2) CK-MB (CK-2) Rel Index Troponin I 0.013 Total Protein Albumin Globulin Albumin/Globulin Ratio Lipase SARS-CoV-2 (PCR) Negative Assessment & Plan Assessment & Plan narrative: 1. Acute on chronic hypoxemic respiratory failure secondary to pneumonia -vs possible etiology is pulmonary edema -CTA shows findings suggestive of pulmonary hypertension -if not improving with antibiotics consider ECHO -check BNP given findings of possible pulmonary edema and lower extremity edema -most likely etiology is pneumonia with leukocytosis and left lobe consolidation -ordered for ceftriaxone, azithromycin for pneumonia -wean oxygen as able 2. Fall -unclear etiology as patient can't remember circumstances -order PT -check orthostatics in AM 2. History of CVA -has baseline dysarthria -continue coumadin 3. Atrial fibrillation, chronic -continue coumadin, metoprolol 4. Hypertension -hold anti-hypertensives for now 5. Hypothyroid -continue synthroid 6. Hiatal hernia -ordered h2 blockers I have discussed plan and obtained history from patient and family at bedside. I have discussed plan of care with ED physician and bedside nurse. I have reviewed labs, chest xray and previous medical records CODE: Full Proxy: Shamir Wadsworth, proxy Quality [facility] - Meds 'Current medications' to include all prescriptions, [id number] products, herbals, cannabis/cannabidiol products, and vitamin/mineral/dietary (nutritional) supplements. I have utilized all available resources to obtain, update, or review the patient?s current medications. [If Yes, STOP here]: Yes
[2023-01-04 02:32] LABS: NT-proBNP (BNP-Adult 18+) 7530 pg/mL (<450)
[2023-01-04] MEDS: AZITHROMYCIN 500 MG in DEXTROSE 5% IN WATER 250 ML 250 MG IV (04:49)
[2023-01-04 06:18] LABS: Add Manual Diff / Slide Review NO; Basophils Absolute Auto 100 /uL (0-100); Basophils Percent Auto 0.5 % (0-2); Eosinophils Absolute Auto 100 /uL (0-450); Eosinophils Percent Auto 1.3 % (2-4); Hematocrit 32.6 % (36-46); Hemoglobin 10.2 g/dL (12.0-16.0); Lymphocytes Absolute Auto 1200 /uL (1100-4500); Lymphocytes Percent Auto 11.5 % (25-40); Mean Corpuscular HGB Conc 31.2 % (30-36); Mean Corpuscular Hemoglobin 24.2 PG (26-34); Mean Corpuscular Volume 77.5 fL (80-100); Monocytes Absolute Auto 1300 /uL (0-900); Monocytes Percent Auto 11.9 % (3-14); Neutrophils Absolute Auto 7900 /uL (1500-7000); Neutrophils Percent Auto 74.8 % (50-75); Platelet Count 214 X10^3/uL (150-400); Red Cell Distribution Width 19.7 % (11.6-14.8); White Blood Cell Count 10.6 X10^3/uL (4.5-11.0)
[2023-01-04 07:02] LABS: Alanine Aminotransferase 16 IU/L (<35); Albumin 3.6 g/dL (3.5-5.0); Albumin Globulin Ratio 1.3 (1.0-2.8); Alkaline Phosphatase 64 U/L (38-126); Aspartate Aminotransferase 26 IU/L (14-36); BUN Creatinine Ratio 15.1 (6-22); Bilirubin Total 2.2 mg/dL (0.2-1.3); Blood Urea Nitrogen 16 mg/dL (7-17); Calcium 8.6 mg/dL (8.4-10.2); Carbon Dioxide 33 mmol/L (22-32); Chloride 100 mmol/L (98-107); Estimated Glomerular Filt Rate 54 mL/min (>60); Globulin 2.8 g/dL (1.7-4.1); Glucose 104 mg/dL (80-110); HEMOLYSIS < 15 (0-50); Potassium 3.9 mmol/L (3.4-5.1); Sodium 139 mmol/L (137-145); Total Protein 6.4 g/dL (6.3-8.2)
[2023-01-04 08:05] LABS: HEMOLYSIS < 15 (0-50); Iron 31 ug/dL (37-170)
[2023-01-04 08:16] LABS: Percent Iron Saturation 7 % (15-50); Total Iron Binding Capacity 455 ug/dL (265-497); Transferrin 272 mg/dL (206-381)
[2023-01-04] MEDS: FAMOTIDINE 20 MG TABLET PO (08:28)
[2023-01-04 08:45] LABS: Ferritin 23 ng/mL (11-264)
--- NOTE | 2023-01-04 09:18 | CM.DANOTE ---
Initial DCP Assessment Note Pt is a 77 yo female, resident of [place] , arrives after a fall at home, admitted for Acute on chronic hypoxemic respiratory failure secondary to pneumonia. Patient on O2 at home PCP: Donna Santamaria Payer: [employer]JUAN ANTONIO Reviewed chart, met w/patient this morning to introduce self and review DCP RN Kelly indicating patient doing very well this morning and patient agrees she is feeling better Patient navigates her home independently and son/sister can assist as needed Patient denies current needs from this [employer] and anticipates her sister will pick her up upon discharge No barriers identified at this time to patient's safe discharge home w/family to assist; close outpatient f/u recommended. JACQUI Kerr Discharge Planning/Care Management CM Discharge Assessment Start: 01/04/23 09:16 Freq: Status: Active Protocol: Document 01/04/23 09:16 RADHA (Rec: 01/04/23 09:18 RADHA [id number]) Discharge Planning Assessment Assigned Test Lead Application Testing JACQUI Camacho DPOA/Assigned Designee Name jasbir Ortiz Contact Information [phone] Advance Directives? Yes Advance Directives on File Yes History Provided By Patient,Medical Record Prior Living Arrangements Apartment/Condo Comment approximately 10 stairs to get down to apt. two flights to get to the laundry room. Household Members none Type of transporation used prior to Drives own vehicle admit Independent with ADL's Yes Is patient alert and oriented? Yes Comment used in the past, currently uses no assistive devices. Barriers to Discharge No Comment r/o need for HH Discharge Plan Home Transportation Arrangement Likely sister Referrals Initiated None needed
[2023-01-04] MEDS: FUROSEMIDE 40 MG/4 ML VIAL IV (11:03)
--- NOTE | 2023-01-04 11:36 | P.DS_ITS ---
History of Present Illness History of Present Illness Date Patient Seen: 01/04/23 Time Patient Seen: 01:30 Chief complaint: found on ground this am Narrative: Ms. Wadsworth is a 77W with PMH afib, CVA with dysarthria, HTN, hypothyroidism who presents to the hospital after waking up on the floor. She is unclear of the circumstances of how she ended up on the floor. She does not recall a fall. Earlier in the day she had been in her normal state of health. She had no sy mptoms or concerns with no weakness, lightheadedness, cough, shortness of breath, nausea, vomiting, diarrhea, or abdominal pain. She thought she was maybe in a dreaming or maybe sleepwalking state, she is not sure, and then she awoke on the floor. She could not get up off the floor, she is not sure why, she can't state if she was too weak or lightheaded or disoriented. Once she is here in the ED, she states that aside from feeling tired, she feels her normal state of health. She does use oxygen at home, she is not sure why, has used it for 2 years, but only uses it at night. In the ED workup was done, vitals notable for afebrile, heart rate in the 60s, respiratory rate in the teens, blood pressure 130s/60s, sats 95% on room air. O2 sats dropped to the 80s, she was in the low 80s with activity. She was placed on oxygen. Labs reviewed by me and notable for WBC 15.6, hgb 10.8, plts 263. Na 141, creatinine 1.11. INR 3.2. Bili 2.6. Trop 0.013. D-dimer 1289. Chest xray reviewed by me and negative for any acute process. Head CT showed old stroke. CTA chest showed left lower lobe consolidation and possible pulmonary edema, and large hiatal hernia. She was ordered for antibiotics and admitted for further treatment Discharge Providers Provider Date of admission: 01/04/23 01:21 Discharge Date: 01/04/23 Primary care physician: Julien Tyler DO Consults: 01/04/23 03:03 Consult to Physical Therapy Evaluate & Treat Comment: Physician Instructions: Evaluate and Treat Discharge provider: Yash Castrejon DO Summary Hospital Course Discharge Diagnosis: 1. Acute on chronic hypoxemic respiratory failure secondary to pneumonia -vs possible etiology is pulmonary edema -patient already has home O2 at night, currently on 2L NC -CTA shows findings suggestive of pulmonary hypertension -if not improving with antibiotics consider ECHO -given lasix 40mg IV due to BNP 7500 and possible pulmonary edema and lower extremity edema -most likely etiology is pneumonia with leukocytosis and left lobe consolidation -ordered for ceftriaxone, azithromycin for pneumonia -wean oxygen as able -patient discharged home on 2L home O2 during the day -cefdinir and azithro ordered on dc 2. Fall from bed -patient said she rolled out of bed on accident -orthostatics negative 2. History of CVA -has baseline dysarthria -continue coumadin 3. Atrial fibrillation, chronic -continue coumadin, metoprolol 4. Hypertension -resumed on discharge 5. Hypothyroid -continue synthroid 6. Hiatal hernia Hospital Course: Admitted for PNA requiring 2L NC. Patient already on home O2 at night. She said she mistakenly rolled out of bed and is how she ended up on the floor. She felt much better and asked to go home, and given that she is already on home O2 she was instructed to use it during the day. She was placed on a few more days of oral antibiotics for her pneumonia and given a dose of IV lasix prior to discharge due to crackles on exam and pulm edema on CT chest. Time Spent with Patient Time spent: Greater than 30 minutes Exam Vital Signs (past 8 hours): - 01/04/23 08:48 01/04/23 08:49 01/04/23 08:51 Temperature 97.4 F L Pulse Rate 74 Pulse Rate [Orthostatic Lying] 74 Pulse Rate [Orthostatic Sitting] 71 Pulse Rate [Orthostatic Standing] 78 Respiratory Rate 17 Blood Pressure 139/69 Blood Pressure [Orthostatic Lying] 139/69 Blood Pressure [Orthostatic Sitting] 149/75 H Blood Pressure [Orthostatic Standing] 150/74 H Pulse Oximetry 93 93 Oxygen Delivery Method Nasal Cannula Oxygen Flow Rate 2 2 01/04/23 10:10 Temperature Pulse Rate Pulse Rate [Orthostatic Lying] Pulse Rate [Orthostatic Sitting] Pulse Rate [Orthostatic Standing] Respiratory Rate Blood Pressure Blood Pressure [Orthostatic Lying] Blood Pressure [Orthostatic Sitting] Blood Pressure [Orthostatic Standing] Pulse Oximetry 95 Oxygen Delivery Method Nasal Cannula Oxygen Flow Rate 2 Oxygen Delivery Method Nasal Cannula Oxygen Flow Rate 2 Narrative Exam Narrative: GEN: no acute distress, alert and oriented HEENT: moist mucous membranes, PERRL NECK: trachea midline, no JVD PULM: clear bilaterally, no wheezes, rhonchi, mild bibasilar rales present CV: irregular with no murmurs ABD: soft, nontender, nondistended, no organomegaly EXT; warm and well perfused, trace edema NEURO: halting speech, word finding difficulty, dysarthria Objective Labs 01/04/23 06:07 01/04/23 06:07 Labs: Laboratory Results - last 24 hr 01/03/23 01/03/23 01/03/23 18:28 18:28 18:28 WBC 15.6 H RBC 4.49 Hgb 10.8 L Hct 34.7 L MCV 77.3 L MCH 24.0 L MCHC 31.0 RDW 19.7 H Plt Count 263 Neut % (Auto) 80.6 H Lymph % (Auto) 5.6 L [place] % (Auto) 12.7 Eos % (Auto) 0.2 L Baso % (Auto) 0.9 Neut # (Auto) 17977 H Lymph # (Auto) 900 L [place] # (Auto) 2000 H Eos # (Auto) 0 Baso # (Auto) 100 PT 37.7 H INR 3.2 H APTT 50 H D-Dimer Sodium 141 Potassium 4.1 Chloride 102 Carbon Dioxide 28 BUN 19 H Creatinine 1.11 H Estimated GFR 51 L BUN/Creatinine Ratio 17.1 Glucose 96 Calcium 9.0 Magnesium 1.8 Iron TIBC % Saturation Transferrin Ferritin Total Bilirubin 2.6 H AST 26 ALT 19 Alkaline Phosphatase 71 Total Creatine Kinase 48 CK-MB (CK-2) TNP CK-MB (CK-2) Rel Index TNP Troponin I 0.013 NT-Pro-B Natriuret Pep Total Protein 7.4 Albumin 4.3 Globulin 3.1 Albumin/Globulin Ratio 1.4 Lipase 42 SARS-CoV-2 (PCR) 01/03/23 01/03/23 01/03/23 18:28 21:15 21:15 WBC RBC Hgb Hct MCV MCH MCHC RDW Plt Count Neut % (Auto) Lymph % (Auto) [place] % (Auto) Eos % (Auto) Baso % (Auto) Neut # (Auto) Lymph # (Auto) [place] # (Auto) Eos # (Auto) Baso # (Auto) PT INR APTT D-Dimer 1289 H Sodium Potassium Chloride Carbon Dioxide BUN Creatinine Estimated GFR BUN/Creatinine Ratio Glucose Calcium Magnesium Iron TIBC % Saturation Transferrin Ferritin Total Bilirubin AST ALT Alkaline Phosphatase Total Creatine Kinase CK-MB (CK-2) CK-MB (CK-2) Rel Index Troponin I 0.013 NT-Pro-B Natriuret Pep 7530 H Total Protein Albumin Globulin Albumin/Globulin Ratio Lipase SARS-CoV-2 (PCR) 01/03/23 01/04/23 01/04/23 22:58 06:07 06:07 WBC 10.6 RBC 4.20 Hgb 10.2 L Hct 32.6 L MCV 77.5 L MCH 24.2 L MCHC 31.2 RDW 19.7 H Plt Count 214 Neut % (Auto) 74.8 Lymph % (Auto) 11.5 L [place] % (Auto) 11.9 Eos % (Auto) 1.3 L Baso % (Auto) 0.5 Neut # (Auto) 7900 H Lymph # (Auto) 1200 [place] # (Auto) 1300 H Eos # (Auto) 100 Baso # (Auto) 100 PT INR APTT D-Dimer Sodium 139 Potassium 3.9 Chloride 100 Carbon Dioxide 33 H BUN 16 Creatinine 1.06 H Estimated GFR 54 L BUN/Creatinine Ratio 15.1 Glucose 104 Calcium 8.6 Magnesium Iron TIBC % Saturation Transferrin Ferritin Total Bilirubin 2.2 H AST 26 ALT 16 Alkaline Phosphatase 64 Total Creatine Kinase CK-MB (CK-2) CK-MB (CK-2) Rel Index Troponin I NT-Pro-B Natriuret Pep Total Protein 6.4 Albumin 3.6 Globulin 2.8 Albumin/Globulin Ratio 1.3 Lipase SARS-CoV-2 (PCR) Negative 01/04/23 01/04/23 06:07 06:07 WBC RBC Hgb Hct MCV MCH MCHC RDW Plt Count Neut % (Auto) Lymph % (Auto) [place] % (Auto) Eos % (Auto) Baso % (Auto) Neut # (Auto) Lymph # (Auto) [place] # (Auto) Eos # (Auto) Baso # (Auto) PT INR APTT D-Dimer Sodium Potassium Chloride Carbon Dioxide BUN Creatinine Estimated GFR BUN/Creatinine Ratio Glucose Calcium Magnesium Iron 31 L TIBC 455 % Saturation 7 L Transferrin 272 Ferritin 23 Total Bilirubin AST ALT Alkaline Phosphatase Total Creatine Kinase CK-MB (CK-2) CK-MB (CK-2) Rel Index Troponin I NT-Pro-B Natriuret Pep Total Protein Albumin Globulin Albumin/Globulin Ratio Lipase SARS-CoV-2 (PCR) [facility] Medical History Anticoagulated on Coumadin Atrial fibrillation Gout History of multiple cerebrovascular accidents (CVAs) Hypertension Hypothyroidism Surgical History No significant past surgical history Social History household members: none Smoking Status: Never smoker alcohol intake: never Discharge Plan Discharge Plan Patient Disposition: Home Provider Discharge Comment: You were admitted for a pneumonia. You received IV antibiotics while in the hospital and your infection improved. You will now need to finish a course of oral antibiotics at home. Please use your oxygen during the day while your lungs heal to keep your O2 sats >90%. Discharge orders & Medications Prescriptions: New azithromycin 500 mg tablet 500 mg PO DAILY 2 Days Qty: 2 0RF Rx Instructions: start on 01/05 cefdinir 300 mg capsule 300 mg PO BID 3 Days Qty: 6 0RF Rx Instructions: start on 01/05 Continued atorvastatin 20 mg Tablet 20 mg PO BEDTIME cyanocobalamin (vitamin B-12) [Vitamin B-12] 1,000 mcg Tablet 1,000 mcg PO DAILY warfarin 5 mg Tablet 5 mg PO QPM Rx Instructions: 1tab every PM on , , Sun and 1/2tab on Sun, Sun, Sun, Sun gabapentin 300 mg Capsule 900 mg PO BEDTIME allopurinol 300 mg Tablet 300 mg PO DAILY Calcium 600 with Vitamin D3 600 mg(1,500mg) -400 unit Tablet,Chewable 1 tab PO DAILY levothyroxine 50 mcg tablet 50 mcg PO QAM Patient Comments: TK 1 T PO D Rx Instructions: Patient states she takes med twice a day on Sundays fluoxetine 20 mg capsule 20 mg PO BID Patient Comments: TK 1 C PO D cetirizine [Zyrtec] 10 mg Tablet 10 mg PO PRN PRN (Reason: Allergy Symptoms) Patient Comments: Patient takes once daily as needed ascorbic acid (vitamin C) [Vitamin C] 500 mg Tablet 500 mg PO QAM omeprazole 20 mg capsule,delayed release(DR/EC) 20 mg PO DAILY metoprolol succinate 50 mg Tablet Extended Release 24 Hr 75 mg PO BID Qty: 45 0RF Follow up/Referrals: Julien Tyler DO [Primary Care Provider] - 2 Weeks Visit Report/Discharge Packet Stand Alone Forms: Patient Portal/API, Stroke Signs & Symptoms Discharge Data Primary Care Provider: Julien Tyler Quality VTE Deep Vein Thrombosis/Pulmonary Embolism Present on Admission: No
[2023-01-04] MEDS: cefTRIAXone 1,000 MG in SODIUM CHLORIDE 0.9% 100 ML 200 MG IV (11:52)
--- NOTE | 2023-01-04 12:18 | PT-IP ANOTE ---
Per physician, no PT needed. Will d/c orders.
--- NOTE | 2023-01-04 12:52 | PC.NURSE ---
Pt is dressed and ready for discharge home with Sister. IV has been removed. D/C instructions reviewed with Pt-reviewed stroke education (Pt has had 3 prior CVA;s), d/c medications and last dose, and follow up recommendations. Pt denies further questions and was taken out via w/c by [employer] to POV with Sister and all belongings.
== END 2023-01-04 12:56 | disposition home or self-care (01) | DRG 193 ==
LOC: ED 22:19 → AC 01-04 01:22
PROVIDERS: Student in an Organized Health Care Education/Training Program; Admitting Provider Internal Medicine; Emergency Provider Emergency Medicine; PCP Family Medicine; Referring Provider Emergency Medicine; Visit Provider Internal Medicine
DX: J18.9 Pneumonia, unspecified organism (principal); J96.21 Acute and chronic respiratory failure with hypoxia; I48.20 Chronic atrial fibrillation, unspecified; E03.9 Hypothyroidism, unspecified; K44.9 Diaphragmatic hernia without obstruction or gangrene; I10 Essential (primary) hypertension; M10.9 Gout, unspecified; R55 Syncope and collapse; W06.XXXA Fall from bed, initial encounter; Z79.01 Long term (current) use of anticoagulants; Z86.73 Personal history of transient ischemic attack (TIA), and cerebral infarction without residual deficits; Z20.822 Contact with and (suspected) exposure to COVID-19
CPT/HCPCS: 36415; 70450; 71045; 71275; 72125; 80053; 82550; 82728; 83540; 83550; 83690; 83735; 83880; 84484; 85025; 85379; 85610; 85730; 87635; 93005; 94760; 96365; 96366; 99284; 99285; C9803; A9270; J0696; J1940; Q9967

== ENCOUNTER 2023-01-11 13:42 | Observation (INO) | payer MEDICARE, SELFPAY ==
[2023-01-04 02:20] VITALS: BMI 29.5
[2023-01-11] VITALS (22 sets, daily range): BP systolic 123–169; BP diastolic 59–85; PULSE 57–77; RESP 16–29; TEMP 36.4–37; O2SAT 91–99; BMI 30.9
--- NOTE | 2023-01-11 14:23 | DI.CT.S_ITS ---
PROCEDURE: CT HEAD/BRAIN WO CON INDICATIONS: Syncope/fall TECHNIQUE: Noncontrast 4.5 mm thick angled axial sections acquired from the foramen magnum to the vertex, with coronal and sagittal reformats. For radiation dose reduction, the following was used: automated exposure control, adjustment of mA and/or kV according to patient size. COMPARISON: [facility], CT, CT HEAD/BRAIN WO CON, 01/03/2023, 19:33. FINDINGS: Image quality: Excellent. CSF spaces: Basal cisterns are patent. No extra-axial fluid collections. The ventricles are symmetric in size and shape. Brain: No intracranial bleeds or masses. There is cerebral volume loss for age, with resultant ventricular and sulcal prominence. There are periventricular and deep white matter chronic small vessel ischemic changes. Prior infarction is present in the left frontal lobe. Overall appearance is stable compared to prior exam. There is intracranial internal carotid artery atherosclerosis. Skull and face: Calvarium and visualized facial bones appear intact, without suspicious lesions. Sinuses: Visualized sinuses and mastoids are clear. IMPRESSION: 1. No acute intracranial process. 2. Moderate atrophy and chronic microvascular ischemic changes. Dictated by: Carolyn Brown M.D. on 01/11/2023 at 14:55 Approved by: Carolyn Brown M.D. on 01/11/2023 at 14:56
--- NOTE | 2023-01-11 14:25 | DI.CT.S_ITS ---
PROCEDURE: CT ANGIO CHEST PE PROTOCOL INDICATIONS: Syncope/fall TECHNIQUE: After the administration of intravenous contrast, 2 mm thick sections acquired from the pulmonary apices to the posterior costophrenic angles. 3-dimensional maximum intensity projection (MIP) coronal and sagittal reformats were then acquired through the thorax. For radiation dose reduction, the following was used: automated exposure control, adjustment of mA and/or kV according to patient size. COMPARISON: [facility], CT, CT ANGIO CHEST PE PROTOCOL, 01/03/2023, 21:44. FINDINGS: Image quality: Excellent. Pulmonary arteries: Pulmonary arteries are normal in size, and demonstrate no intraluminal filling defects to suggest central pulmonary embolism. Lungs and pleura: Trace consolidation in the lingula. Small left pleural effusion. Smooth interstitial thickening. Central ground-glass. Mediastinum: Marked cardiomegaly. Large hiatal hernia. Marked, three-vessel coronary calcifications. Prominent mediastinal lymph nodes. Bones and chest wall: No suspicious bony lesions. Ribs and thoracic spine appear intact throughout. Thyroid gland is unremarkable. No axillary or supraclavicular adenopathy. Abdomen: Subcentimeter hypoattenuating liver lesions, too small to characterize by CT. Additional fluid attenuating cyst along the gallbladder fossa. IMPRESSION: No pulmonary embolus. Trace consolidation in the lingula, suggestive of infection or aspiration. Moderate pulmonary edema, given smooth interstitial thickening and central ground-glass. Marked cardiomegaly. Dictated by: Pelon Munoz M.D. on 01/11/2023 at 15:05 Approved by: Pelon Munoz M.D. on 01/11/2023 at 15:13
--- NOTE | 2023-01-11 14:26 | DI.US.S_ITS ---
PROCEDURE: US PERIPH VENOUS LOW EXTREM RT INDICATIONS: RIGHT LEG PAIN REDNESS AND SWELLING TECHNIQUE: Real-time imaging, as well as color and pulse Doppler interrogation, were performed of the lower extremity deep veins from the inguinal ligament to the popliteal fossa. COMPARISON: None. FINDINGS: The common femoral, femoral and popliteal veins are normally compressible, and free of intraluminal thrombus. Color and pulse Doppler demonstrate normal phasic intraluminal flow. There is normal augmentation response to distal compression maneuver. IMPRESSION: No deep venous thrombosis in the visualized lower extremity. Dictated by: Pelon Munoz M.D. on 01/11/2023 at 15:21 Approved by: Pelon Munoz M.D. on 01/11/2023 at 15:21
--- NOTE | 2023-01-11 14:30 | ED_ITS ---
HPI - Fall General Chief Complaint: Syncope Stated Complaint: LOC no memory of incident Time Seen by Provider: 01/11/23 14:23 Source: patient Mode of arrival: Wheelchair History of Present Illness HPI Narrative: Patient brought here by her sister from the parking lot of a restaurant. They were having lunch this afternoon. When they walked to the car to go home, patient passed out near the car. Landed on her back. She denies denies any pain from the fall. Denies any injury. Sister responded immediately. She was confused for awhile on the way to the hospital. She is at baseline at this time. Patient denies denies any prevent chest pain headache dizziness palpitations abdominal pain back pain numbness tingling or weakness. She continues to deny any of these symptoms as well. Patient did recently get admitted here last Sunday admitted for pneumonia discharge the next day. She is had some pain and swelling to her right leg since then. Denies any chest pain or dyspnea at this time. Pulse is detected with Doppler. Foot is otherwise warm soft and pink. Brisk cap refills. Light touch intact to foot and toes. Patient on warfarin for atrial fibrillation Fast exam x-ray Related Data Home Medications Medication Instructions Recorded Confirmed allopurinol 300 mg tablet 300 mg PO DAILY 12/29/19 01/11/23 ascorbic acid (vitamin C) 500 mg 500 mg PO QAM 12/29/19 01/11/23 tablet (Vitamin C) atorvastatin 20 mg tablet 20 mg PO BEDTIME 12/29/19 01/11/23 calcium carbonate 600 mg-vitamin 1 tab PO DAILY 12/29/19 01/11/23 D3 10 mcg (400 unit) chewable tablet (Calcium 600 with Vitamin D3) cetirizine 10 mg tablet (Zyrtec) 10 mg PO PRN PRN Allergy Symptoms 12/29/19 01/11/23 cyanocobalamin (vitamin B-12) 1,000 mcg PO DAILY 12/29/19 01/11/23 1,000 mcg tablet (Vitamin B-12) fluoxetine 20 mg capsule 20 mg PO BID 12/29/19 01/11/23 gabapentin 300 mg capsule 900 mg PO BEDTIME 12/29/19 01/11/23 omeprazole 20 mg capsule,delayed 20 mg PO DAILY 12/29/19 01/11/23 release warfarin 5 mg tablet 5 mg PO QPM 12/29/19 01/11/23 Previous Rx's Medication Instructions Recorded metoprolol succinate 50 mg 75 mg PO BID #45 tabs 01/01/20 tablet,extended release 24 hr levothyroxine 75 mcg tablet 75 mcg PO DAILY #30 tabs 01/13/23 amoxicillin 500 mg-potassium 1 tab PO TID #15 tabs 01/14/23 clavulanate 125 mg tablet (Augmentin) Allergies Allergy/AdvReac Type Severity Reaction Status Date / Time amlodipine [AMLODIPINE] Allergy Unknown Verified 01/11/23 14:01 dexlansoprazole Allergy Unknown Verified 01/11/23 14:01 [From DEXILANT] lisinopril [LISINOPRIL] Allergy Unknown Verified 01/11/23 14:01 simvastatin [SIMVASTATIN] Allergy Unknown Verified 01/11/23 14:01 diltiazem Allergy Verified 01/11/23 14:01 Review of Systems Review of Systems Narrative: GENERAL: negative chills, fatigue, malaise, fever, sweats. HEENT: negative sinus pain, ear pain, sore throat RESPIRATORY: negative dyspnea, cough CARDIOVASCULAR: negative chest pain, palpitations GASTROINTESTINAL: negative nausea, vomiting, abdominal pain : negative dysuria, frequency, hematuria MUSCULOSKELETAL: negative muscle or bony pain SKIN: negative rash, skin lesions NEUROLOGIC: negative weakness, numbness, positive syncope ROS Unobtainable: All systems reviewed & are unremarkable except as noted in HPI and below Patient History Medical History Anticoagulated on Coumadin Atrial fibrillation Gout History of multiple cerebrovascular accidents (CVAs) Hypertension Hypothyroidism Surgical History No significant past surgical history Family History Father No problems noted. Mother No problems noted. Social History household members: none Smoking Status: Never smoker alcohol intake: never Smoking Status: Never smoker alcohol intake frequency: 0-2 drinks per day Substance Use Type: does not use Exam Narrative Exam Narrative: GENERAL: in no distress, not toxic not dyspneic HEAD: Normocephalic. Nontender face and scalp. EYES: Pupils equal round ENT: Mucous membranes moist. NECK: Trachea midline. No midline tenderness or step-off of the cervicothoracic or lumbar spine. CARDIOVASCULAR: Regular rate and rhythm without murmurs RESPIRATORY: Clear to auscultation. Breath sounds equal bilaterally. No wheezes, rales, or rhonchi. GASTROINTESTINAL: Abdomen soft, non-tender EXTREMITIES: No gross deformities. Nontender bilateral shoulders elbows wrists pelvis hips knees and ankles. There is edema of the calf and ankle. On the right side calf compared to the left nontender calf. No palpable cords. Negative Homans test negative Lee test. Brisk cap refills. Palpable pedal pulse on the right BACK: No flank tenderness. NEURO: AOx4. SKIN: Warm and dry PSYCH: Not anxious, is cooperative Initial Vital Signs Initial Vital Signs: Vital Signs Temperature 98.6 F 01/11/23 13:52 Pulse Rate 62 01/11/23 13:52 Respiratory Rate 18 01/11/23 13:52 Blood Pressure 138/72 01/11/23 13:52 Pulse Oximetry 99 01/11/23 13:52 Oxygen Delivery Method Room Air 01/11/23 13:52 Course Orders Ordered: Discontinued Medications Acetaminophen (Acetaminophen 325 Mg Tablet) 650 mg PO Q6H PRN PRN Reason: Fever/Mild Pain (1-3) Last Admin: 01/12/23 21:24 Dose: 650 mg Documented By: Admin: 01/12/23 05:10 Dose: 650 mg Documented By: Admin: 01/11/23 20:14 Dose: 650 mg Documented By: CT Allopurinol (Allopurinol 100 Mg Tablet) 300 mg PO DAILY REPLACED BY [facility] Last Admin: 01/14/23 08:11 Dose: 300 mg Documented By: Admin: 01/13/23 08:52 Dose: 300 mg Documented By: Admin: 01/12/23 09:52 Dose: 300 mg Documented By: MAIA Amoxicillin/Clavulanate Potassium (Amoxicillin/Clav 500/125 Mg) 1 tab PO TID REPLACED BY [facility] Stop: 01/18/23 21:01 Amoxicillin/Clavulanate Potassium (Amoxicillin/Clav 500/125 Mg) 1 tab PO TID REPLACED BY [facility] Stop: 01/18/23 21:01 Last Admin: 01/14/23 12:43 Dose: Not Given Documented By: LDV Atorvastatin Calcium (Atorvastatin 20 Mg Tablet) 20 mg PO BEDTIME REPLACED BY [facility] Last Admin: 01/13/23 20:55 Dose: 20 mg Documented By: Admin: 01/12/23 21:30 Dose: 20 mg Documented By: Admin: 01/11/23 20:14 Dose: 20 mg Documented By: CT Doxycycline Hyclate (Doxycycline Hyclate 100 Mg Tablet) 100 mg PO BID REPLACED BY [facility] Stop: 01/16/23 20:59 Last Admin: 01/14/23 08:11 Dose: 100 mg Documented By: Admin: 01/13/23 20:56 Dose: 100 mg Documented By: Admin: 01/13/23 08:53 Dose: 100 mg Documented By: Admin: 01/12/23 21:31 Dose: 100 mg Documented By: Admin: 01/12/23 09:51 Dose: 100 mg Documented By: Admin: 01/11/23 20:15 Dose: 100 mg Documented By: CT Fluoxetine HCl (Fluoxetine 20 Mg Capsule) 20 mg PO BID REPLACED BY [facility] Last Admin: 01/14/23 08:11 Dose: 20 mg Documented By: Admin: 01/13/23 20:56 Dose: 20 mg Documented By: Admin: 01/13/23 08:52 Dose: 20 mg Documented By: Admin: 01/12/23 21:31 Dose: 20 mg Documented By: Admin: 01/12/23 09:51 Dose: 20 mg Documented By: JAidan Admin: 01/11/23 20:14 Dose: 20 mg Documented By: CT Gabapentin (Gabapentin 300 Mg Capsule) 900 mg PO BEDTIME REPLACED BY [facility] Last Admin: 01/13/23 20:55 Dose: 900 mg Documented By: Admin: 01/12/23 21:30 Dose: 900 mg Documented By: Admin: 01/11/23 20:14 Dose: 900 mg Documented By: CT Hydralazine HCl (Hydralazine 25 Mg Tablet) 25 mg PO BIDWM REPLACED BY [facility] Last Admin: 01/14/23 12:43 Dose: Not Given Documented By: LDV Sodium Chloride (Normal Saline 0.9%) 1,000 mls @ 100 mls/hr IV CONT INES Stop: 01/12/23 06:14 Last Admin: 01/11/23 19:30 Dose: Not Given Documented By: CT Ceftriaxone Sodium 1,000 mg/ (Sodium Chloride) 100 mls @ 200 mls/hr IV Q24H INES Stop: 01/16/23 18:14 Last Infusion: 01/13/23 18:28 Dose: 200 mls/hr Documented By: Admin: 01/13/23 17:18 Dose: 200 mls/hr Documented By: Infusion: 01/13/23 08:53 Dose: 200 mls/hr Documented By: Admin: 01/12/23 18:10 Dose: 200 mls/hr Documented By: Infusion: 01/11/23 19:30 Dose: 0 mls/hr Documented By: Admin: 01/11/23 18:57 Dose: 200 mls/hr Documented By: MAIA Sodium Chloride (Normal Saline 0.9%) 1,000 mls @ 80 mls/hr IV CONT INES Last Infusion: 01/13/23 14:44 Dose: 80 mls/hr Documented By: Admin: 01/12/23 10:11 Dose: 80 mls/hr Documented By: Infusion: 01/12/23 10:11 Dose: 80 mls/hr Documented By: Admin: 01/11/23 21:45 Dose: 80 mls/hr Documented By: CT Levothyroxine Sodium (Levothyroxine 50 Mcg Tablet) 50 mcg PO DAILY@0600 REPLACED BY [facility] Levothyroxine Sodium (Levothyroxine 50 Mcg Tablet) 75 mcg PO DAILY@0600 REPLACED BY [facility] Last Admin: 01/14/23 08:10 Dose: 75 mcg Documented By: Admin: 01/13/23 06:19 Dose: 75 mcg Documented By: Admin: 01/12/23 05:09 Dose: 75 mcg Documented By: CT Melatonin (Melatonin 3 Mg Tablet) 6 mg PO BEDTIME PRN PRN Reason: Insomnia Last Admin: 01/13/23 20:55 Dose: 6 mg Documented By: MS Metoprolol Succinate (Metoprolol Er 50 Mg Tablet) 75 mg PO BID REPLACED BY [facility] Last Admin: 01/14/23 08:11 Dose: 75 mg Documented By: Admin: 01/13/23 20:55 Dose: 75 mg Documented By: Admin: 01/13/23 08:52 Dose: 75 mg Documented By: Admin: 01/12/23 21:25 Dose: 75 mg Documented By: Admin: 01/12/23 09:50 Dose: 75 mg Documented By: Admin: 01/11/23 20:14 Dose: 75 mg Documented By: CT Metoprolol Succinate (Metoprolol Er 25 Mg Tablet) 75 mg PO BID REPLACED BY [facility] Naloxone HCl (Naloxone 0.4 Mg/Ml Vial) 0.2 mg IV Q2MIN PRN PRN Reason: Opiate Reversal Pantoprazole Sodium (Pantoprazole Dr 20 Mg Tablet) 20 mg PO 0600 REPLACED BY [facility] Last Admin: 01/14/23 08:11 Dose: 20 mg Documented By: Admin: 01/13/23 06:19 Dose: 20 mg Documented By: Admin: 01/12/23 05:10 Dose: 20 mg Documented By: CT Polyethylene Glycol (Polyethylene Glycol 3350 17 Gm Powd.Pack) 17 gm PO DAILY PRN PRN Reason: Constipation Sennosides (Sennosides 8.6 Mg Tablet) 8.6 mg PO BID PRN PRN Reason: Constipation Last Admin: 01/12/23 21:31 Dose: 8.6 mg Documented By: Sodium Chloride (Sodium Chloride 0.9% 500 Ml) 80 ml IV CONT REPLACED BY [facility] Last Admin: 01/11/23 23:02 Dose: Not Given Documented By: CT Warfarin Sodium (Warfarin 5 Mg Tablet) 5 mg PO QPM REPLACED BY [facility] Last Admin: 01/13/23 16:17 Dose: 5 mg Documented By: Admin: 01/12/23 16:36 Dose: 5 mg Documented By: Admin: 01/11/23 18:55 Dose: 5 mg Documented By: MAIA Vital Signs Vital signs: Vital Signs - 8 hr 01/11/23 13:52 01/11/23 14:08 01/11/23 14:10 Temperature 98.6 F Pulse Rate 62 66 66 Respiratory Rate 18 18 18 Blood Pressure 138/72 Pulse Oximetry 99 Oxygen Delivery Method Room Air 01/11/23 14:10 01/11/23 14:30 01/11/23 14:54 Temperature Pulse Rate 64 65 Respiratory Rate 25 H 16 Blood Pressure 165/79 H Pulse Oximetry 93 Oxygen Delivery Method 01/11/23 14:54 01/11/23 15:00 01/11/23 15:00 Temperature Pulse Rate 66 Respiratory Rate 17 Blood Pressure 150/73 H 157/74 H Pulse Oximetry 93 Oxygen Delivery Method 01/11/23 15:15 01/11/23 15:15 01/11/23 15:30 Temperature Pulse Rate 64 Respiratory Rate 17 Blood Pressure 142/76 H 158/70 H Pulse Oximetry 93 Oxygen Delivery Method 01/11/23 15:30 01/11/23 15:45 01/11/23 15:45 Temperature Pulse Rate 64 63 Respiratory Rate 17 16 Blood Pressure 157/74 H Pulse Oximetry 94 91 Oxygen Delivery Method 01/11/23 16:00 01/11/23 16:01 01/11/23 16:01 Temperature Pulse Rate 69 67 Respiratory Rate 21 17 Blood Pressure 131/71 Pulse Oximetry 94 93 Oxygen Delivery Method 01/11/23 16:15 01/11/23 16:15 01/11/23 16:26 Temperature Pulse Rate 68 68 Respiratory Rate 27 H 19 Blood Pressure 157/73 H Pulse Oximetry 92 91 Oxygen Delivery Method 01/11/23 16:26 01/11/23 16:30 01/11/23 16:30 Temperature Pulse Rate 65 Respiratory Rate 20 Blood Pressure 147/76 H 169/84 H Pulse Oximetry 91 Oxygen Delivery Method 01/11/23 16:45 01/11/23 16:45 01/11/23 17:00 Temperature Pulse Rate 61 Respiratory Rate 21 Blood Pressure 146/71 H 153/74 H Pulse Oximetry 94 Oxygen Delivery Method 01/11/23 17:00 Temperature Pulse Rate 64 Respiratory Rate 29 H Blood Pressure Pulse Oximetry 97 Oxygen Delivery Method MDM - Fall Lab Data 01/14/23 04:50 01/14/23 04:50 Labs: Lab Results 01/11/23 01/11/23 01/11/23 Range/Units 14:14 14:14 14:14 WBC 7.9 (4.5-11.0) X10^3/uL RBC 4.37 (4.0-5.2) X10^6/uL Hgb 10.5 L (12.0-16.0) g/dL Hct 34.0 L (36-46) % MCV 77.9 L (80-100) fL MCH 24.2 L (26-34) PG MCHC 31.0 (30-36) % RDW 19.6 H (11.6-14.8) % Plt Count 330 (150-400) X10^3/uL Neut % (Auto) 73.6 (50-75) % Lymph % (Auto) 13.4 L (25-40) % [place] % (Auto) 10.0 (3-14) % Eos % (Auto) 1.8 L (2-4) % Baso % (Auto) 1.2 (0-2) % Neut # (Auto) 5800 (0862-3155) /uL Lymph # (Auto) 1100 (0081-7074) /uL [place] # (Auto) 800 (0-900) /uL Eos # (Auto) 100 (0-450) /uL Baso # (Auto) 100 (0-100) /uL PT 18.9 H D (10.1-12.7) SECONDS INR 1.6 H (0.9-1.3) APTT 38 H (26-36) SECONDS Sodium 139 (137-145) mmol/L Potassium 4.6 (3.4-5.1) mmol/L Chloride 102 (98-107) mmol/L Carbon Dioxide 31 (22-32) mmol/L BUN 20 H (7-17) mg/dL Creatinine 1.48 H (0.52-1.04) mg/dL Estimated GFR 36 L (>60) mL/min BUN/Creatinine Ratio 13.5 (6-22) Glucose 85 (80-110) mg/dL Calcium 8.8 (8.4-10.2) mg/dL Magnesium (1.6-2.3) mg/dL Total Bilirubin 1.1 (0.2-1.3) mg/dL AST 29 (14-36) IU/L ALT 19 (<35) IU/L Alkaline Phosphatase 76 (38-126) U/L Total Creatine Kinase 48 (30-135) U/L CK-MB (CK-2) TNP CK-MB (CK-2) Rel Index TNP Troponin I < 0.012 (0.01-0.034) ng/mL Total Protein 7.5 (6.3-8.2) g/dL Albumin 4.2 (3.5-5.0) g/dL Globulin 3.3 (1.7-4.1) g/dL Albumin/Globulin Ratio 1.3 (1.0-2.8) Procalcitonin (<0.5) ng/mL TSH (0.47-4.68) uIU/mL Free T4 (0.78-2.19) ng/dL Urine Color Urine Appearance Urine pH (4.5-8.0) Ur Specific [place] (1.000-1.035) Urine Protein (Negative) Urine Glucose (UA) (Negative) g/dL Urine Ketones (NEGATIVE) Urine Occult Blood (Negative) Urine Nitrate (Negative) Urine Bilirubin (NEGATIVE) Urine Urobilinogen (0.2) E.U./dL Ur Leukocyte Esterase (NEGATIVE) Urine RBC (0-5/HPF) Urine WBC (0-5/HPF) Ur Squamous Epith Cells (0-5/HPF) Urine Bacteria (None) Ur Culture Indicated? Ethyl Alcohol < 10 ( - 10) mg/dL SARS-CoV-2 (PCR) (Negative) 01/11/23 01/11/23 01/11/23 Range/Units 14:14 14:14 14:14 WBC (4.5-11.0) X10^3/uL RBC (4.0-5.2) X10^6/uL Hgb (12.0-16.0) g/dL Hct (36-46) % MCV (80-100) fL MCH (26-34) PG MCHC (30-36) % RDW (11.6-14.8) % Plt Count (150-400) X10^3/uL Neut % (Auto) (50-75) % Lymph % (Auto) (25-40) % [place] % (Auto) (3-14) % Eos % (Auto) (2-4) % Baso % (Auto) (0-2) % Neut # (Auto) (7451-4509) /uL Lymph # (Auto) (0299-9058) /uL [place] # (Auto) (0-900) /uL Eos # (Auto) (0-450) /uL Baso # (Auto) (0-100) /uL PT (10.1-12.7) SECONDS INR (0.9-1.3) APTT (26-36) SECONDS Sodium (137-145) mmol/L Potassium (3.4-5.1) mmol/L Chloride (98-107) mmol/L Carbon Dioxide (22-32) mmol/L BUN (7-17) mg/dL Creatinine (0.52-1.04) mg/dL Estimated GFR (>60) mL/min BUN/Creatinine Ratio (6-22) Glucose (80-110) mg/dL Calcium (8.4-10.2) mg/dL Magnesium 1.9 (1.6-2.3) mg/dL Total Bilirubin (0.2-1.3) mg/dL AST (14-36) IU/L ALT (<35) IU/L Alkaline Phosphatase (38-126) U/L Total Creatine Kinase (30-135) U/L CK-MB (CK-2) CK-MB (CK-2) Rel Index Troponin I (0.01-0.034) ng/mL Total Protein (6.3-8.2) g/dL Albumin (3.5-5.0) g/dL Globulin (1.7-4.1) g/dL Albumin/Globulin Ratio (1.0-2.8) Procalcitonin 0.05 (<0.5) ng/mL TSH 4.93 H (0.47-4.68) uIU/mL Free T4 1.08 (0.78-2.19) ng/dL Urine Color Urine Appearance Urine pH (4.5-8.0) Ur Specific [place] (1.000-1.035) Urine Protein (Negative) Urine Glucose (UA) (Negative) g/dL Urine Ketones (NEGATIVE) Urine Occult Blood (Negative) Urine Nitrate (Negative) Urine Bilirubin (NEGATIVE) Urine Urobilinogen (0.2) E.U./dL Ur Leukocyte Esterase (NEGATIVE) Urine RBC (0-5/HPF) Urine WBC (0-5/HPF) Ur Squamous Epith Cells (0-5/HPF) Urine Bacteria (None) Ur Culture Indicated? Ethyl Alcohol ( - 10) mg/dL SARS-CoV-2 (PCR) (Negative) 01/11/23 01/11/23 01/11/23 Range/Units 16:24 16:51 16:51 WBC (4.5-11.0) X10^3/uL RBC (4.0-5.2) X10^6/uL Hgb (12.0-16.0) g/dL Hct (36-46) % MCV (80-100) fL MCH (26-34) PG MCHC (30-36) % RDW (11.6-14.8) % Plt Count (150-400) X10^3/uL Neut % (Auto) (50-75) % Lymph % (Auto) (25-40) % [place] % (Auto) (3-14) % Eos % (Auto) (2-4) % Baso % (Auto) (0-2) % Neut # (Auto) (9892-7059) /uL Lymph # (Auto) (7713-3926) /uL [place] # (Auto) (0-900) /uL Eos # (Auto) (0-450) /uL Baso # (Auto) (0-100) /uL PT (10.1-12.7) SECONDS INR (0.9-1.3) APTT (26-36) SECONDS Sodium (137-145) mmol/L Potassium (3.4-5.1) mmol/L Chloride (98-107) mmol/L Carbon Dioxide (22-32) mmol/L BUN (7-17) mg/dL Creatinine (0.52-1.04) mg/dL Estimated GFR (>60) mL/min BUN/Creatinine Ratio (6-22) Glucose (80-110) mg/dL Calcium (8.4-10.2) mg/dL Magnesium (1.6-2.3) mg/dL Total Bilirubin (0.2-1.3) mg/dL AST (14-36) IU/L ALT (<35) IU/L Alkaline Phosphatase (38-126) U/L Total Creatine Kinase 50 (30-135) U/L CK-MB (CK-2) TNP CK-MB (CK-2) Rel Index TNP Troponin I < 0.012 (0.01-0.034) ng/mL Total Protein (6.3-8.2) g/dL Albumin (3.5-5.0) g/dL Globulin (1.7-4.1) g/dL Albumin/Globulin Ratio (1.0-2.8) Procalcitonin (<0.5) ng/mL TSH (0.47-4.68) uIU/mL Free T4 (0.78-2.19) ng/dL Urine Color Yellow Urine Appearance Clear Urine pH 5.5 (4.5-8.0) Ur Specific [place] 1.010 (1.000-1.035) Urine Protein Negative (Negative) Urine Glucose (UA) Negative (Negative) g/dL Urine Ketones Negative (NEGATIVE) Urine Occult Blood Negative (Negative) Urine Nitrate Negative (Negative) Urine Bilirubin Negative (NEGATIVE) Urine Urobilinogen 0.2 (0.2) E.U./dL Ur Leukocyte Esterase Negative (NEGATIVE) Urine RBC 0-1/hpf (0-5/HPF) Urine WBC 0-1/hpf (0-5/HPF) Ur Squamous Epith Cells 5-10 /hpf H (0-5/HPF) Urine Bacteria Few (2-10) H (None) Ur Culture Indicated? Cult not indicated Ethyl Alcohol ( - 10) mg/dL SARS-CoV-2 (PCR) Negative (Negative) Point of Care Testing Glucose POC 92 Urine Dip Bedside Urine Glucose Negative Bedside Urine Bilirubin - Negative Bedside Urine Ketone - Negative Urine Specific [place] 1.015 Bedside Urine Occult Blood - Negative Bedside Urine pH 5.5 Bedside Urine Protein - Negative Bedside Urine Urobilinogen - Negative Bedside Urine Nitrite - Negative Bedside Urine Leukocytes - Negative Esterase Imaging Data CT scan - head: Radiologist's Impression: IMPRESSION:? ? 1. No acute intracranial process. ? 2. Moderate atrophy and chronic microvascular ischemic changes. CT scan - chest: Radiologist's Impression: IMPRESSION:? ? No pulmonary embolus. ? Trace consolidation in the lingula, suggestive of infection or aspiration. ? Moderate pulmonary edema, given smooth interstitial thickening and central ground-glass. ? Marked cardiomegaly.? US - DVT: Radiologist's Impression: IMPRESSION:? No deep venous thrombosis in the visualized lower extremity. MDM Narrative Medical decision making narrative: Patient brought here by her sister from the parking lot of a restaurant. They were having lunch this afternoon. When they walked to the car to go home, patient passed out near the car. Landed on her back. She denies denies any john n from the fall. Denies any injury. Sister responded immediately. She was confused for awhile on the way to the hospital. She is at baseline at this time. Patient denies denies any prevent chest pain headache dizziness palpitations abdominal pain back pain numbness tingling or weakness. She co ntinues to deny any of these symptoms as well. Patient did recently get admitted here last Sunday admitted for pneumonia discharge the next day. She is had some pain and swelling to her right leg since then. Denies any chest pain or dyspnea at this time. Pulse is detected with Doppler. Foot is otherwise warm soft and pink. Brisk cap refills. Light touch intact to foot and toes. Patient on warfarin for atrial fibrillation. Fast exam is negative After history and exam CBC CMP troponin CT head CT chest PE protocol ultrasound right leg urinalysis [facility] CC: Syncope Complicating co-morbidities: Recent admission for pneumonia Data collected from: Patient and sister Medical records reviewed: ER visit here January 03, 2023 Differential considered: Includes but not limited to pulmonary embolism aortic dissection vasovagal syncope dehydration, hypoglycemia Exam documented above, pertinent findings include: Nontender spine nontender head and scalp. Lab Test results independently reviewed as above. Pertinent findings: WBC 7.9 hemoglobin 10.5 hematocrit 34 platelets 330 PT 18.9 INR 1.6 PTT 38 sodium 139 potassium 4.6 BUN 20 creatinine 1.48 GFR 36 Alcohol less than 10 troponin less than 0.012 Independently reviewed EKG as above atrial fibrillation rate [address] elevation or depression Imaging studies independently reviewed: CT chest no PE. Trace consolidation in the lingula suggestive infection or aspiration. Moderate pulmonary edema given smooth interstitial thickening and central ground-glass. Cardiomegaly present CT head no acute process Ultrasound right leg no DVT Consultations: 5:[address] Castrejon, hospitalist, he will admit patient, this is patient's 2nd episode. Treatments: Normal saline Re-evaluations: 4:30 p.m.. Reviewed results with patient and sister. Sister now reveals that patient had syncopal episode 3 weeks ago before admitted here for pneumonia. This is her 2nd event in 3 weeks. Sister has history arrhythmia that required pacemaker. At this time I did encourage them and they agree for admission for observation MRI echocardiogram Discussion: Appropriate for admission for syncope for MRI echocardiogram Diagnosis: Syncope Discharge Plan Departure Patient Disposition: Admitted as Observation Clinical Impression: Syncope Admit Date/Time: 01/11/23 17:30 Admit Provider: Yash Castrejon
[2023-01-11 14:40] LABS: Add Manual Diff / Slide Review NO; Basophils Absolute Auto 100 /uL (0-100); Basophils Percent Auto 1.2 % (0-2); Eosinophils Absolute Auto 100 /uL (0-450); Eosinophils Percent Auto 1.8 % (2-4); Hemoglobin 10.5 g/dL (12.0-16.0); Lymphocytes Absolute Auto 1100 /uL (1100-4500); Lymphocytes Percent Auto 13.4 % (25-40); Mean Corpuscular Hemoglobin 24.2 PG (26-34); Mean Corpuscular Volume 77.9 fL (80-100); Monocytes Absolute Auto 800 /uL (0-900); Neutrophils Absolute Auto 5800 /uL (1500-7000); Neutrophils Percent Auto 73.6 % (50-75); Platelet Count 330 X10^3/uL (150-400); Red Blood Cell Count 4.37 X10^6/uL (4.0-5.2); Red Cell Distribution Width 19.6 % (11.6-14.8); White Blood Cell Count 7.9 X10^3/uL (4.5-11.0)
[2023-01-11 14:49] LABS: Alanine Aminotransferase 19 IU/L (<35); Albumin 4.2 g/dL (3.5-5.0); Albumin Globulin Ratio 1.3 (1.0-2.8); Alkaline Phosphatase 76 U/L (38-126); Aspartate Aminotransferase 29 IU/L (14-36); BUN Creatinine Ratio 13.5 (6-22); Bilirubin Total 1.1 mg/dL (0.2-1.3); Blood Urea Nitrogen 20 mg/dL (7-17); Calcium 8.8 mg/dL (8.4-10.2); Carbon Dioxide 31 mmol/L (22-32); Chloride 102 mmol/L (98-107); Creatine Kinase 48 U/L (30-135); Estimated Glomerular Filt Rate 36 mL/min (>60); Ethanol (ETOH) < 10 mg/dL; Globulin 3.3 g/dL (1.7-4.1); Glucose 85 mg/dL (80-110); HEMOLYSIS < 15 (0-50); Potassium 4.6 mmol/L (3.4-5.1); Sodium 139 mmol/L (137-145); Total Protein 7.5 g/dL (6.3-8.2)
[2023-01-11 14:53] LABS: INR 1.6 (0.9-1.3); Prothrombin Time 18.9 SECONDS (10.1-12.7)
[2023-01-11 14:56] LABS: PTT Partial Thromboplastin Tim 38 SECONDS (26-36)
[2023-01-11 15:00] LABS: Troponin I < 0.012 ng/mL (0.01-0.034)
[2023-01-11 16:53] LABS: Appearance Urine UA CLEAR; Bilirubin Urine UA NEGATIVE (NEGATIVE); Color Urine UA YELLOW; Glucose Urine UA NEGATIVE (Negative); Ketones Urine UA NEGATIVE (NEGATIVE); Leukocyte Esterase Urine UA NEGATIVE (NEGATIVE); Nitrite Urine UA NEGATIVE (Negative); Occult Blood Urine UA NEGATIVE (Negative); Protein Urine UA NEGATIVE (Negative); Urobilinogen Urine UA 0.2 E.U./dL (0.2)
[2023-01-11 16:55] LABS: pH Urine UA 5.5 (4.5-8.0)
[2023-01-11 17:14] LABS: COVID19 -Nasal RAPID Negative (Negative); Creatine Kinase 50 U/L (30-135)
[2023-01-11 17:19] LABS: RBC Urine 0-1/HPF (0-5/HPF); Squamous Epithelial Cell Urine 5-10 /HPF (0-5/HPF); WBC Urine 0-1/HPF (0-5/HPF)
[2023-01-11 17:20] LABS: Bacteria Urine Few (2-10); Culture Indicated Urine Cult Not Indicated
[2023-01-11 17:26] LABS: Troponin I < 0.012 ng/mL (0.01-0.034)
--- NOTE | 2023-01-11 18:10 | DI.ECHO.S_ITS ---
[facility] +---------+ : : [address] : : : : [id number] : : : : Phone: [phone]+ Echocardiogram Report + + :Name: SHWETA MONCADA Study Date: 01/12/2023 Height: 66 in : :[facility] ReadingLocation: Weight: 192 lb : : Gender: Female BSA: 2.0 m2 : :: 1945 Age: 77 yrs BP: 154/80 mmHg: :Reason For Study: SYNCOPE : :Ordering Physician: ADRIENNE, : :NATHAN Mathews Performed By: MISTY ENGLAND : :Referring: NATHAN DELEON : + + Interpretation Summary Left ventricular wall thickness is mildly increased. The ejection fraction is estimated to be 50-55%. There is mild mitral regurgitation. There is mild tricuspid regurgitation. The right ventricular systolic pressure is estimated to be at least 66 mmHg based on an estimated right atrial pressure of 8 mm Hg. Procedure: A two-dimensional transthoracic echocardiogram with color flow and Doppler was performed. The study quality was technically adequate. Comparison is made with the echocardiogram of 12/30/19. The patient was in atrial fibrillation with heart rates between 54-107 bpm during the exam. Left Ventricle: The left ventricle is normal in size. Left ventricular wall thickness is mildly increased. Left ventricular systolic function is normal. The ejection fraction is estimated to be 50-55%. Left ventricular wall motion is normal. Right Ventricle: The right ventricle is normal size. Right ventricular systolic function is moderately reduced. Atria: The left atrium is severely dilated. The right atrium is moderately dilated. There is no Doppler evidence for an interatrial shunt. Mitral Valve: There is mild mitral annular calcification. There is mild mitral regurgitation. Aortic Valve: The aortic valve is trileaflet. The aortic valve opens well. There is no aortic valve stenosis. No aortic regurgitation is present. Tricuspid Valve: The tricuspid valve is normal in structure and function. There is mild tricuspid regurgitation. The right ventricular systolic pressure is estimated to be at least 66 mmHg based on an estimated right atrial pressure of 8 mm Hg. Pulmonic Valve: The pulmonic valve leaflets are thin and pliable; valve motion is normal. There is mild pulmonic regurgitation. Great Vessels: The aortic root is normal size. The ascending aorta is normal in size. The IVC is dilated (diameter is greater than 2.1 cm) yet it collapses greater than 50% with a sniff. This suggests a right atrial pressure of 8 mm Hg. Pericardium/ Pleura There is no pericardial effusion. There is no pleural effusion. MMode/2D Measurements & Calculations LVIDd: 3.9 cm LVOT diam: 2.1 cm LVIDs: 2.6 cm Ao root diam: 3.1 cm FS: 33.4 % asc Aorta Diam: 3.5 cm IVSd: 0.98 cm LVPWd: 1.0 cm LV ovalles. diameter/BSA (cm/m^2): 2.0 LV sys. diameter/BSA (cm/m^2): 1.3 LA A2 area: 26.8 cm2 RA long axis: 5.5 cm LA A4 area: 23.6 cm2 RA area: 23.7 cm2 LA length (vol): 7.0 cm RA vol: 87.0 ml LA vol: 77.1 ml RA : 44.3 ml/m2 LA vol index: 39.2 ml/m2 IVC diam: 2.5 cm TAPSE: 1.3 cm Doppler Measurements & Calculations Ao V2 max: 96.6 cm/sec LVOT Max Doug: 66.4 cm/sec Ao V2 mean: 74.8 cm/sec LV V1 max P.8 mmHg Ao max P.7 mmHg LV V1 VTI: 13.1 cm Ao mean P.4 mmHg TENISHA(I,D): 2.1 cm2 Ao V2 VTI: 22.2 cm TENISHA(V,D): 2.4 cm2 sev ratio: 0.59 TENISHA indexed to BSA (cm^2/m^2): 1.1 MV E max doug: 128.3 cm/sec TR max doug: 382.2 cm/sec MV A max doug: 43.2 cm/sec TR max P.4 mmHg MV E/A: 3.0 PA V2 max: 74.1 cm/sec Med Peak E' Doug: 3.8 cm/sec PA V2 mean: 51.6 cm/sec E/E' med: 34.1 PA mean P.2 mmHg Lat Peak E' Doug: 6.4 cm/sec PA pr(Accel): 48.2 mmHg E/E' lat: 20.0 E/e' average: 27.0 MV dec time: 0.16 sec SV(LVOT): 46.2 ml Reading Physician:11:43 AM
[2023-01-11 18:28] LABS: Magnesium 1.9 mg/dL (1.6-2.3)
[2023-01-11 18:47] LABS: Procalcitonin 0.05 ng/mL (<0.5)
--- NOTE | 2023-01-11 18:49 | PC.NURSE ---
Patient to room at 1836, vs taken and weight on white erase board. She is tucked into bed and comfortable. Resting comfortably.
[2023-01-11] MEDS: WARFARIN 5 MG TABLET PO (18:55)
[2023-01-11] MEDS: cefTRIAXone 1,000 MG in SODIUM CHLORIDE 0.9% 100 ML 200 MG IV (18:57)
[2023-01-11 19:00] LABS: TSH w/ Reflex to FT4 4.93 uIU/mL (0.47-4.68)
[2023-01-11 19:44] LABS: Free T4, Direct Thyroxine 1.08 ng/dL (0.78-2.19)
[2023-01-11] MEDS: METOPROLOL ER 50 MG TABLET 75 MG PO (20:14)
[2023-01-11] MEDS: ACETAMINOPHEN 325 MG TABLET 650 MG PO (20:14)
[2023-01-11] MEDS: FLUoxetine 20 MG CAPSULE PO (20:14)
[2023-01-11] MEDS: GABAPENTIN 300 MG CAPSULE 900 MG PO (20:14)
[2023-01-11] MEDS: ATORVASTATIN 20 MG TABLET PO (20:14)
[2023-01-11] MEDS: DOXYCYCLINE HYCLATE 100 MG TABLET PO (20:15)
[2023-01-11] MEDS: SODIUM CHLORIDE 0.9% 1,000 ML 80 ML IV (21:45)
--- NOTE | 2023-01-11 22:41 | PM.HP.1 ---
History of Present Illness History of Present Illness Date Patient Seen: 01/11/23 Time Patient Seen: 18:09 Chief complaint: LOC no memory of incident Narrative: Ms. Wadsworth is a 77W with PMH afib, CVA with dysarthria, HTN, hypothyroidism who presents to the hospital via her sister after suffering a reported syncopal episode. The patient had just finished lunch and was attempting to get into her sister's car when she felt extremely lightheaded and per her sister lost consciousness, falling backwards to the ground hitting her head. Patient denies any chest pain, shortness breast, diaphoresis, changes in vision, numbness weakness tingling headache prior to this event. Patient is on Coumadin for atrial fibrillation. And was hospitalized on 01/03/2023 for pneumonia. Patient states she fell on her right side causing injury and pain to the right lower leg ankle and foot with inflammation redness and warmth to touch. Right lower extremity vascular ultrasound was negative for DVT in ED, CTA negative for PE -positive interstitial thickening and ground-glass present possible pulmonary edema, head CT was negative for any acute process. The sister reported to the ED that the patient had been confused on the car ride to the ED but in the ED patient was alert and orientated x3. Patient also reported that the antibiotics that she completed approximately 1 week ago had given her severe diarrhea x 1wk, which had stopped 6 days ago. Patient complains generalized weakness, and recent weight loss. She has had a significantly decreased appetite and eats only 1 meal per day, and drinks 60 oz of fluid a day. On admit patient denies chest pain, shortness in breath, headache, changes in vision, difficulty swallowing, speech impairment, numbness, tingling, difficulty with ambulation, fever, body aches, chills, cough, abdominal pain, nausea, vomiting, urinary incontinence/retention, dysuria, frequency, urgency, hematuria, constipation, incontinence, melena, rashes, injury, or trauma. On admit vitals are stable temp 98.6?, 143/71, 62, 24, 92% on room air. No white count, H and H 10.5/34 MCV 77.7, MCH 24.2. BUN 20, creatinine 1.48, GFR 36 (last 01/04/23-BUN 16, creatinine 1.06, GFR 54). The following were all normal troponin, procalcitonin, urinalysis, ETOH, COVID. TSH was elevated 4.93. EKG demonstrated atrial fibrillation rate controlled [address] or T-wave changes. Patient admitted for syncopal episode resulting in ground level fall, MUNA. [facility], [facility] Medical History Anticoagulated on Coumadin Atrial fibrillation Gout History of multiple cerebrovascular accidents (CVAs) Hypertension Hypothyroidism Surgical History No significant past surgical history Family History Father No problems noted. Mother No problems noted. Social History household members: none Smoking Status: Never smoker alcohol intake: never Meds Home Medications and Allergies Home Medications Medication Instructions Recorded Confirmed Type allopurinol 300 mg tablet 300 mg PO DAILY 12/29/19 01/11/23 History ascorbic acid (vitamin C) 500 mg 500 mg PO QAM 12/29/19 01/11/23 History tablet (Vitamin C) atorvastatin 20 mg tablet 20 mg PO BEDTIME 12/29/19 01/11/23 History calcium carbonate 600 mg-vitamin 1 tab PO DAILY 12/29/19 01/11/23 History D3 10 mcg (400 unit) chewable tablet (Calcium 600 with Vitamin D3) cetirizine 10 mg tablet (Zyrtec) 10 mg PO PRN PRN Allergy Symptoms 12/29/19 01/11/23 History cyanocobalamin (vitamin B-12) 1,000 mcg PO DAILY 12/29/19 01/11/23 History 1,000 mcg tablet (Vitamin B-12) fluoxetine 20 mg capsule 20 mg PO BID 12/29/19 01/11/23 History gabapentin 300 mg capsule 900 mg PO BEDTIME 12/29/19 01/11/23 History levothyroxine 50 mcg tablet 50 mcg PO QAM 12/29/19 01/11/23 History omeprazole 20 mg capsule,delayed 20 mg PO DAILY 12/29/19 01/11/23 History release warfarin 5 mg tablet 5 mg PO QPM 12/29/19 01/11/23 History metoprolol succinate 50 mg 75 mg PO BID #45 tabs 01/01/20 01/11/23 Rx tablet,extended release 24 hr Allergies Allergy/AdvReac Type Severity Reaction Status Date / Time amlodipine [AMLODIPINE] Allergy Unknown Verified 01/11/23 14:01 dexlansoprazole Allergy Unknown Verified 01/11/23 14:01 [From DEXILANT] lisinopril [LISINOPRIL] Allergy Unknown Verified 01/11/23 14:01 simvastatin [SIMVASTATIN] Allergy Unknown Verified 01/11/23 14:01 diltiazem Allergy Verified 01/11/23 14:01 Review of Systems Review of Systems Narrative: All 12 point systems reviewed with the patient and are negative except otherwise documented. Exam Vital Signs (past 8 hours): - 01/11/23 14:54 01/11/23 14:54 01/11/23 15:00 Temperature Pulse Rate 65 Respiratory Rate 16 Blood Pressure 150/73 H 157/74 H Pulse Oximetry 93 Oxygen Delivery Method Oxygen Flow Rate 01/11/23 15:00 01/11/23 15:15 01/11/23 15:15 Temperature Pulse Rate 66 64 Respiratory Rate 17 17 Blood Pressure 142/76 H Pulse Oximetry 93 93 Oxygen Delivery Method Oxygen Flow Rate 01/11/23 15:30 01/11/23 15:30 01/11/23 15:45 Temperature Pulse Rate 64 63 Respiratory Rate 17 16 Blood Pressure 158/70 H Pulse Oximetry 94 91 Oxygen Delivery Method Oxygen Flow Rate 01/11/23 15:45 01/11/23 16:00 01/11/23 16:01 Temperature Pulse Rate 69 67 Respiratory Rate 21 17 Blood Pressure 157/74 H Pulse Oximetry 94 93 Oxygen Delivery Method Oxygen Flow Rate 01/11/23 16:01 01/11/23 16:15 01/11/23 16:15 Temperature Pulse Rate 68 Respiratory Rate 27 H Blood Pressure 131/71 157/73 H Pulse Oximetry 92 Oxygen Delivery Method Oxygen Flow Rate 01/11/23 16:26 01/11/23 16:26 01/11/23 16:30 Temperature Pulse Rate 68 Respiratory Rate 19 Blood Pressure 147/76 H 169/84 H Pulse Oximetry 91 Oxygen Delivery Method Oxygen Flow Rate 01/11/23 16:30 01/11/23 16:45 01/11/23 16:45 Temperature Pulse Rate 65 61 Respiratory Rate 20 21 Blood Pressure 146/71 H Pulse Oximetry 91 94 Oxygen Delivery Method Oxygen Flow Rate 01/11/23 17:00 01/11/23 17:00 01/11/23 17:30 Temperature Pulse Rate 64 Respiratory Rate 29 H Blood Pressure 153/74 H 143/71 H Pulse Oximetry 97 Oxygen Delivery Method Oxygen Flow Rate 01/11/23 17:30 01/11/23 19:00 01/11/23 20:14 Temperature 97.5 F L Pulse Rate 62 57 L 61 Respiratory Rate 24 18 Blood Pressure 156/78 H 156/78 H Pulse Oximetry 92 93 Oxygen Delivery Method Oxygen Flow Rate 0 01/11/23 19:45 Temperature Pulse Rate Respiratory Rate Blood Pressure Pulse Oximetry Oxygen Delivery Method Room Air Oxygen Flow Rate Oxygen Delivery Method Room Air Oxygen Flow Rate 0 Narrative Exam Narrative: General: Patient is a well-developed, well-nourished female, notable mild post CVA dysarthria, in no acute distress at this time. HEENT: Normocephalic, atraumatic, extraocular muscles intact, oral pharynx is clear and mucous membranes are moist. Neck is supple and symmetric, trachea is midline, no adenopathy, no thyroid enlargement, nontender, no masses palpated. Negative for JVD Chest: Normal AP diameter and contour without kyphoscoliosis, no nasal flaring, retractions, tachypneic or labored breathing Lungs: Auscultation of all lung granados are clear without adventitious sounds, wheezes, rhonchi, or rales. Cardio: irregular rhythm, AFib with bradycardic rate without murmur, rubs, or gallops, no carotid bruit, no cardiac pulsations present. Abdomen: Soft nontender, negative for organomegaly, or masses. Bowel sounds are hypoactive present in all 4 quadrants without guarding or rebound, no CVA tenderness. Musculoskeletal: Muscle strength and tone are equal within normal limits, right lower extremity inflammation erythema warmth and pain with palpation to touch from mid tibial through the foot. Full range of motion intact radial and pedal pulses are normal. Skin: Warm dry and intact without rashes, ulcerations or petechiae. With the exception of right lower leg Neuro: Alert and orientated x3, moves all extremities, sensation to touch intact, no gross deficits noted of cranial nerves. Mild dysarthria baseline for patient Psych: Patient has a well-kept appearance, appropriate affect, mental status attitude thought context and judgment are appropriate for age. Objective Labs 01/11/23 14:14 01/11/23 14:14 Labs: Laboratory Results - last 24 hr 01/11/23 01/11/23 01/11/23 14:14 14:14 14:14 WBC 7.9 RBC 4.37 Hgb 10.5 L Hct 34.0 L MCV 77.9 L MCH 24.2 L MCHC 31.0 RDW 19.6 H Plt Count 330 Neut % (Auto) 73.6 Lymph % (Auto) 13.4 L Humphreys % (Auto) 10.0 Eos % (Auto) 1.8 L Baso % (Auto) 1.2 Neut # (Auto) 5800 Lymph # (Auto) 1100 Humphreys # (Auto) 800 Eos # (Auto) 100 Baso # (Auto) 100 PT 18.9 H D INR 1.6 H APTT 38 H Sodium 139 Potassium 4.6 Chloride 102 Carbon Dioxide 31 BUN 20 H Creatinine 1.48 H Estimated GFR 36 L BUN/Creatinine Ratio 13.5 Glucose 85 Calcium 8.8 Magnesium Total Bilirubin 1.1 AST 29 ALT 19 Alkaline Phosphatase 76 Total Creatine Kinase 48 CK-MB (CK-2) TNP CK-MB (CK-2) Rel Index TNP Troponin I < 0.012 Total Protein 7.5 Albumin 4.2 Globulin 3.3 Albumin/Globulin Ratio 1.3 Procalcitonin TSH Free T4 Urine Color Urine Appearance Urine pH Ur Specific [place] Urine Protein Urine Glucose (UA) Urine Ketones Urine Occult Blood Urine Nitrate Urine Bilirubin Urine Urobilinogen Ur Leukocyte Esterase Urine RBC Urine WBC Ur Squamous Epith Cells Urine Bacteria Ur Culture Indicated? Ethyl Alcohol < 10 SARS-CoV-2 (PCR) 01/11/23 01/11/23 01/11/23 14:14 14:14 14:14 WBC RBC Hgb Hct MCV MCH MCHC RDW Plt Count Neut % (Auto) Lymph % (Auto) Humphreys % (Auto) Eos % (Auto) Baso % (Auto) Neut # (Auto) Lymph # (Auto) Humphreys # (Auto) Eos # (Auto) Baso # (Auto) PT INR APTT Sodium Potassium Chloride Carbon Dioxide BUN Creatinine Estimated GFR BUN/Creatinine Ratio Glucose Calcium Magnesium 1.9 Total Bilirubin AST ALT Alkaline Phosphatase Total Creatine Kinase CK-MB (CK-2) CK-MB (CK-2) Rel Index Troponin I Total Protein Albumin Globulin Albumin/Globulin Ratio Procalcitonin 0.05 TSH 4.93 H Free T4 1.08 Urine Color Urine Appearance Urine pH Ur Specific [place] Urine Protein Urine Glucose (UA) Urine Ketones Urine Occult Blood Urine Nitrate Urine Bilirubin Urine Urobilinogen Ur Leukocyte Esterase Urine RBC Urine WBC Ur Squamous Epith Cells Urine Bacteria Ur Culture Indicated? Ethyl Alcohol SARS-CoV-2 (PCR) 01/11/23 01/11/23 01/11/23 16:24 16:51 16:51 WBC RBC Hgb Hct MCV MCH MCHC RDW Plt Count Neut % (Auto) Lymph % (Auto) Humphreys % (Auto) Eos % (Auto) Baso % (Auto) Neut # (Auto) Lymph # (Auto) Humphreys # (Auto) Eos # (Auto) Baso # (Auto) PT INR APTT Sodium Potassium Chloride Carbon Dioxide BUN Creatinine Estimated GFR BUN/Creatinine Ratio Glucose Calcium Magnesium Total Bilirubin AST ALT Alkaline Phosphatase Total Creatine Kinase 50 CK-MB (CK-2) TNP CK-MB (CK-2) Rel Index TNP Troponin I < 0.012 Total Protein Albumin Globulin Albumin/Globulin Ratio Procalcitonin TSH Free T4 Urine Color Yellow Urine Appearance Clear Urine pH 5.5 Ur Specific [place] 1.010 Urine Protein Negative Urine Glucose (UA) Negative Urine Ketones Negative Urine Occult Blood Negative Urine Nitrate Negative Urine Bilirubin Negative Urine Urobilinogen 0.2 Ur Leukocyte Esterase Negative Urine RBC 0-1/hpf Urine WBC 0-1/hpf Ur Squamous Epith Cells 5-10 /hpf H Urine Bacteria Few (2-10) H Ur Culture Indicated? Cult not indicated Ethyl Alcohol SARS-CoV-2 (PCR) Negative Assessment & Plan Assessment & Plan narrative: Ms. Wadsworth is a 77W with PMH afib, CVA with dysarthria, HTN, hypothyroidism who presents to the hospital via her sister after suffering a reported syncopal episode. Patient admitted for syncopal episode resulting in ground level fall, MUNA. Patient being admitted for rehydration to resolve muna,rule out etiology of syncope, echo and MR tomorrow, ortho stats, check for hypoglycemia, x-ray right lower extremity, monitor for bleeding, and PT/OT evaluation. ?1. Syncopal episode resulting in ground level fall, loss of consciousness, head injury, RLL injury, acute, present on admission -resluting right lower leg/ankle/foot injury-Ankle/Ft xray ordered-pain management -right LLE U/S negative for DVT -unclear etiology Diff: postprandial or orthostatic hypotension, hypoglycemia, TIA/Stroke, dehydration. -initial glucose 85, A1c ordered -order PT/OT -check orthostatics Qshift, neuro checks PRN -MR ordered -gentle rehydration NS at 80 cc/HR 2. MUNA, mild, acute, present on admission -BUN 20, creatinine 1.48, GFR 36 (last 01/04/23-BUN 16, creatinine 1.06, GFR 54) -likely secondary to hypovolemia -NS at 80 cc/HR -trend renal function, monitor I&O 3. Anemia, chronic, present on admission - H/ H 10.5/34 MCV 77.7, MCH 24.2.-are at baseline -monitor for bleeding 4. History of CVA, with dysarthria, present on admission -has baseline dysarthria -continue coumadin -monitor for bleeding 5. Atrial fibrillation, chronic, rate controlled, present on admission -continue coumadin, metoprolol 6. Hypertension, essential, present on admission -continue metoprolol 7. Hypothyroid, acquired, acute on chronic, present on admission -initial TSH 4.93-will increase levothyroxine from 50mcg to 75mcg repeat TSH/T4 in 6 weeks with PCP 8. Hiatal hernia, chronic, present on admission -ordered h2 blockers 9. Obesity, mild, acute on chronic, present on admission -BMI 31 -dietary consult ordered regarding nutritional education and information for dietary, lifestyle, exercise, and weight changes. -the patient is at much higher risk for medical and surgical complications due to obesity as it relates to chronic illnesses:, and acute illness. The patient's obesity increases the difficulty and complexity of medical and/or surgical interventions, management and increases the chances of poor outcome such as morbidity and mortality as well as impaired wound healing. CODE: Full Proxy: Shamir Wadsworth, proxy COVID PCR: Negative DVT/VTE prophylaxis:cont coumadin & left SCD only Disposition: Patient admitted for observation following syncopal episode with a ground level fall loss of consciousness and head injury, expected length of stay less than 2 midnights. I have utilized all available immediate resources to obtain, update, or review the patient's current medications. I confirmed that the patient's advanced care plan is present, Code status is documented and/or surrogate decision maker is listed in the patient's medical record. I have personally reviewed patient's chart notes from PCP, specialists, diagnostic imaging, and laboratory results. Quality VTE Deep Vein Thrombosis/Pulmonary Embolism Present on Admission: No
[2023-01-12] VITALS (7 sets, daily range): BP systolic 111–154; BP diastolic 56–80; PULSE 57–80; RESP 16–19; TEMP 36.1–37.1; O2SAT 93–97
--- NOTE | 2023-01-12 | DI.CT.S_ITS ---
PROCEDURE: CT FOOT RIGHT WITHOUT CON INDICATIONS: Right foot pain. TECHNIQUE: Noncontrast 1-1.5 mm axial sections acquired from above the tibiotalar joint to the bottom of the calcaneus, with coronal and sagittal reformats. COMPARISON: [facility], CR, XR FOOT RT MIN 3V, 01/12/2023, 8:07. FINDINGS: Image quality: Excellent. Bones: Alignment of right foot is anatomic. Acute appearing comminuted fracture involving lateral cuneiform is seen with fracture line extending to its articulation with 3rd metatarsal base. No other acute fracture or dislocation is seen. No suspicious bony lesion. Mild osteoarthritic changes are noted throughout right foot with joint space narrowing and subchondral sclerosis. No gross osteochondral injuries of talar dome. No suspicious intraosseous lesion. Soft tissues: Diffuse soft tissue swelling and edema around ankle joint is seen extending to dorsal aspect of right foot. No discrete drainable fluid collection is noted. There is small amount of tibiotalar and subtalar joint effusion. No full-thickness tendon rupture. No abnormal soft tissue calcifications. IMPRESSION: 1. Acute nondisplaced and comminuted intra-articular fracture involving lateral cuneiform of right foot as above. 2. [id number] osteoarthritic changes throughout right foot. No other fracture or dislocation. No suspicious bony lesions. 3. No abnormal soft tissue calcifications. No full-thickness tendon rupture. Dictated by: Jerald Chavez M.D. on 01/12/2023 at 16:28 Approved by: Jerald Chavez M.D. on 01/12/2023 at 16:32
--- NOTE | 2023-01-12 02:07 | PC.NURSE ---
This RIBBER charted orthostatics and they were deleted. This is what they were: Lying 150/85 HR 57 sitting 145/76 Hr 77 standing 123/59 HR 71
[2023-01-12] MEDS: LEVOTHYROXINE 50 MCG TABLET 75 MCG PO (05:09)
[2023-01-12] MEDS: PANTOPRAZOLE DR 20 MG TABLET PO (05:10)
[2023-01-12] MEDS: ACETAMINOPHEN 325 MG TABLET 650 MG PO ×2 (05:10→21:24)
[2023-01-12 05:46] LABS: Add Manual Diff / Slide Review NO; Basophils Absolute Auto 100 /uL (0-100); Eosinophils Absolute Auto 100 /uL (0-450); Eosinophils Percent Auto 1.4 % (2-4); Hematocrit 34.3 % (36-46); Hemoglobin 10.6 g/dL (12.0-16.0); Lymphocytes Absolute Auto 800 /uL (1100-4500); Lymphocytes Percent Auto 8.1 % (25-40); Mean Corpuscular HGB Conc 31.1 % (30-36); Mean Corpuscular Hemoglobin 24.1 PG (26-34); Mean Corpuscular Volume 77.7 fL (80-100); Monocytes Absolute Auto 1200 /uL (0-900); Monocytes Percent Auto 12.6 % (3-14); Neutrophils Absolute Auto 7600 /uL (1500-7000); Neutrophils Percent Auto 76.9 % (50-75); Platelet Count 292 X10^3/uL (150-400); Red Blood Cell Count 4.41 X10^6/uL (4.0-5.2); Red Cell Distribution Width 19.9 % (11.6-14.8); White Blood Cell Count 9.9 X10^3/uL (4.5-11.0)
[2023-01-12 05:49] LABS: INR 1.8 (0.9-1.3); Prothrombin Time 20.7 SECONDS (10.1-12.7)
[2023-01-12 06:05] LABS: Troponin I < 0.012 ng/mL (0.01-0.034)
[2023-01-12 07:04] LABS: BUN Creatinine Ratio 14.8 (6-22); Blood Urea Nitrogen 16 mg/dL (7-17); Calcium 8.3 mg/dL (8.4-10.2); Carbon Dioxide 28 mmol/L (22-32); Chloride 105 mmol/L (98-107); Estimated Glomerular Filt Rate 53 mL/min (>60); Glucose 103 mg/dL (80-110); HEMOLYSIS < 15 (0-50); Potassium 4.5 mmol/L (3.4-5.1); Sodium 139 mmol/L (137-145)
--- NOTE | 2023-01-12 08:00 | DI.RAD.S_ITS ---
PROCEDURE: XR ANKLE RT MIN 3V INDICATIONS: GLF/Syncope injury rt foot/ankle prince TECHNIQUE: 3 views of the ankle were acquired. COMPARISON: None. FINDINGS: Bones: No definite fractures or dislocations. A subtle linear lucency on the AP view at the tip of the medial malleolus is probably nontraumatic, however could be a small avulsion fracture if there is point tenderness at this location. Ankle mortise is normally aligned. No suspicious bony lesions. Soft tissues: No tibiotalar joint effusion. Achilles tendon appears normal. IMPRESSION: 1. No definite fracture. 2. Subtle linear lucency at the tip of the medial malleolus is probably nontraumatic however could be a small avulsion fracture if there is point tenderness at this location. Dictated by: Mook Cuevas M.D. on 01/12/2023 at 8:57 Approved by: Mook Cuevas M.D. on 01/12/2023 at 9:00
--- NOTE | 2023-01-12 08:00 | DI.RAD.S_ITS ---
PROCEDURE: XR FOOT RT MIN 3V INDICATIONS: GLF/Syncope injury rt foot/ankle prince TECHNIQUE: 3 views of the foot were acquired. COMPARISON: None. FINDINGS: Bones: No fractures or dislocations. No suspicious bony lesions. A 1 millimeter bone density lateral to the cuneiform is well corticated and appears nontraumatic. Soft tissues: No tibiotalar joint effusion. Achilles tendon appears normal. IMPRESSION: No acute abnormality of the right foot. Dictated by: Mook Cuevas M.D. on 01/12/2023 at 8:55 Approved by: Mook Cuevas M.D. on 01/12/2023 at 8:57
--- NOTE | 2023-01-12 08:45 | PC.NURSE ---
Patient is alert and oriented x4, her speech has been effected by previous hx of cva. Patient states that she had speech therapy for several months to help with her speech, as she had a bleed in her brain. She states that she is having some pain to her r.ankle. Area is warm to touch and red. is aware of this. Patient denies dizziness or feelings of passing out.
[2023-01-12] MEDS: METOPROLOL ER 50 MG TABLET 75 MG PO ×2 (09:50→21:25)
[2023-01-12] MEDS: FLUoxetine 20 MG CAPSULE PO ×2 (09:51→21:31)
[2023-01-12] MEDS: DOXYCYCLINE HYCLATE 100 MG TABLET PO ×2 (09:51→21:31)
[2023-01-12] MEDS: allopurinoL 100 MG TABLET 300 MG PO (09:52)
[2023-01-12] MEDS: SODIUM CHLORIDE 0.9% 1,000 ML 80 ML IV (10:11)
--- NOTE | 2023-01-12 11:45 | PT.IIE ---
Surgical History (Last Reviewed 01/11/23 @ 23:09 [facility] No significant past surgical history Medical History (Last Reviewed 01/11/23 @ 23:09 by CAITLYN RamirezRANGEL) Anticoagulated on Coumadin Atrial fibrillation Gout History of multiple cerebrovascular accidents (CVAs) Hypertension Hypothyroidism Physical Therapy Inpatient Evaluation/Re-Eval M1 PT/OT-IP Prior Functional Status Start: 01/12/23 11:21 Freq: NEEDED Status: Active Protocol: Document 01/12/23 11:21 ES (Rec: 01/12/23 11:45 ES [id number]) Medical Review Prior Functional Status Medical History Reviewed Yes Diet/Fluid Consistency Regular Communication Slurred speech, some difficulty with word-finding at baseline from prior CVA Mobility and Gait Indep without AD, occasional use of trekking poles outside. Limited community ambulation. Activities of Daily Living and IADL's Indep Prior Functional Level (Other details) Able to drive to doctor's appointments, grocery store. Social History Household Members none Living Arrangements House Number of Floors (Floors) One Floor Number of Stairs To Enter/Railing? 7 steps down to downstairs apartment with B rails. 2 steps up from apartment to the laundry room. Home Environment High Toilet,Tub/Shower Home Equipment Straight Cane,Hand Held Shower Additional Social History Comment Patient has a sister and some cousins that live nearby. M2 PT-IP Current Condition Start: 01/12/23 11:21 Freq: NEEDED Status: Active Protocol: Document 01/12/23 11:21 ES (Rec: 01/12/23 11:45 ES [id number]) Physical Therapy Current Condition Current Condition Evaluation Date 01/12/23 Treatment Diagnosis Syncopal episode, GLF, RLE injury, weakness Onset Date 01/11/23 M3 PT-IP Subjective Start: 01/12/23 11:21 Freq: NEEDED Status: Active Protocol: Document 01/12/23 11:21 ES (Rec: 01/12/23 11:45 ES [id number]) Subjective Physical Therapy Visit Type Type Initial Evaluation Visit Start Time 09:18 Visit Stop Time 09:42 Total Visit Minutes 30 Physical Therapy Visit Comments Patient Comments Patient reported her R leg has been sore since the injury. She reported she had some R- sided weakness from her CVA in 2010, and it still feels different than the L side but she is able to use it well functionally. She stated she had been wanting to talk to her GP about doing some PT because it has been getting more difficult to walk in the community. Therapy Pain Assessment Pain When Pain Assessed At Rest Pain Present Pain Present Pain Reported Location Right Ankle Intensity 3 Scale Used Numeric (0 - 10) M4 PT-IP Mobility and Gait Start: 01/12/23 11:21 Freq: NEEDED Status: Active Protocol: Document 01/12/23 11:21 ES (Rec: 01/12/23 11:45 ES [id number]) PT-Bed Mobility Assessment Supine to Sit Supine to Sit Standby Assistance Scooting Scooting to Edge of Bed Standby Assistance PT-Transfer Assessment Sit to and From Stand Sit to and from Stand Contact Guard Assistance,Use of Upper Extremities Equipment Transfer Assistive Device Gait Belt,Front Wheeled Walker Orthotic/Prosthetic Devices or Brace: No Transfers Transfer Destination Chair Transfer Technique Ambulation Transfer Ability Level of Assist Contact Guard Assistance,Use of Upper Extremities Comments Mobility Comments Performed bed mobility with HOB flat, no use of rails. Required extra time to complete. Patient required cues for hand placement on bed /chair when using FWW during transfers to improve eccentric control for sitting, as she tended to fall into chair. Patient denied lightheadedness /dizziness. Gait Assessment Gait Gait Assistance Required: Contact Guard Assist Distance (Feet) 20 Assistive Devices Assistive Device Gait Belt,Front Wheeled Walker Orthotic/Prosthetic Devices or Brace: No Gait Deviations General Gait Pattern Antalgic,Decreased Stride Length,Decreased Feet Clearance,Step-to Gait Factors Limiting Gait Function Factors Limiting Gait Function Decreased Strength,Pain,Poor Balance Comments Gait Comments Patient became more unsteady with further ambulation, and reported increased RLE pain with prolonged standing. PT-Balance Assessment Sitting Balance and Reactions Static Sitting Balance Ability Good Dynamic Sitting Balance Ability Good Standing Balance and Reactions Static Standing Balance Ability Good Dynamic Standing Balance Ability Fair Device Used FWW Comments Other Balance Tests/Deviations/Treatment 4-stage balance test = 4/0/0/0 : indicating high risk for falls M5 PT-IP Objective Assessments Start: 01/12/23 11:21 Freq: NEEDED Status: Active Protocol: Document 01/12/23 11:21 ES (Rec: 01/12/23 11:45 ES [id number]) Orientation Orientation/Cognition Level of Alertness Alert Orientation Name,Age,Birthday,Month,Year, Day of Week,Place,Situation Language Function Ability Word Finding Difficulties Safety Awareness Decreased Safety Awareness Memory Description No Deficits Noted Gross Range of Motion Upper Extremity ROM Assessment Within Functional Limits Lower Extremity ROM Assessment Right Impaired Impairments RLE stiff and painful Strength Upper Extremity Strength Assessment Within Functional Limits Lower Extremity Strength Assessment Right Impaired Comments Strength Comments RLE weaker compared to L, patient reported it is due to pain M6 PT-IP Treatment Start: 01/12/23 11:21 Freq: NEEDED Status: Active Protocol: Document 01/12/23 11:21 ES (Rec: 01/12/23 11:45 ES [id number]) Physical Therapy Treatment Education Education Provided Safety M7 PT-IP Assessment and Plan Start: 01/12/23 11:21 Freq: NEEDED Status: Active Protocol: Document 01/12/23 11:21 ES (Rec: 01/12/23 11:45 ES [id number]) PT Summary Assessment and Plan Potential Rehabilitation Potential Good Status of Condition at Evaluation Evolving Summary Impairments Pain,ROM,Strength,Balance, Transfers,Gait,Activity Tolerance Assessment Summary Patient is a 77 year old female who presents with impaired functional mobility due to the above problems. Patient had difficulty with transfers and gait due to RLE pain and weakness. She was limited in ambulation to less than household distances, and demonstrated unsteadiness as she fatigued. She demonstrated poor standing balance with testing, and is at increased risk for falls. At baseline, she was having difficulty with ambulation. She has several stairs she will need to navigate in/out of her home. She also has limited help at home to be able to manage day- to-day tasks. Because of these factors, I recommend SNF for further rehab and pain management in order to reach at or above her PLOF so that she can return home safely. Goals Bed Mobility Goal Independent Transfer Goal Independent,Cane Gait Goal Independent,Cane Gait Distance 100 Other Goals Patient will be able to ascend /descend 7 stairs with B rails indep. Days to Meet Goals 7 Frequency of Treatment Frequency Of Treatment Once a Day Treatment Plan Physical Therapy Treatment Plan Transfer Training,Gait Training,Therapeutic Exercise, Balance Retraining,Discharge Planning,Manual Therapy Other Recommendations and Next Treatment Progress ambulation, standing Focus tolerance, stair training. Precautions Other Precautions High fall risk Weight Bearing Status Weight Bearing Status Weight Bear as Tolerated Recommendations To Nursing Amount of Assist Needed 1 Person Assist Discharge Recommendations PT Discharge Recommendations SNF Rehab Equipment Needed for Home Before May need FWW Discharge Transportation Needs at Discharge Wheelchair/Cabulance
--- NOTE | 2023-01-12 13:56 | OT.IP.EVAL ---
Past Medical History (Last Reviewed 01/11/23 @ 23:09 by Priscilla Willis [facility]) Anticoagulated on Coumadin Atrial fibrillation Gout History of multiple cerebrovascular accidents (CVAs) Hypertension Hypothyroidism Surgical History (Last Reviewed 01/11/23 @ 23:09 [facility] No significant past surgical history Occupational Therapy Inpatient Evaluation/Re-Eval M1 PT/OT-IP Prior Functional Status Start: 01/12/23 15:10 Freq: NEEDED Status: Active Protocol: Document 01/12/23 15:10 [facility] (Rec: 01/12/23 15:52 [facility] [id number]) Medical Review Prior Functional Status Medical History Reviewed Yes Diet/Fluid Consistency Regular Communication Slurred speech, some difficulty with word-finding at baseline from prior CVA Mobility and Gait Indep without AD, occasional use of trekking poles outside. Limited community ambulation. Activities of Daily Living and IADL's Indep and increased time for IADL needs. Prior Functional Level (Other details) Able to drive to doctor's appointments, grocery store. Social History Household Members none Living Arrangements House Number of Floors (Floors) One Floor Number of Stairs To Enter/Railing? 7 steps down to downstairs apartment with B rails. 2 steps up from apartment to the laundry room. Home Environment High Toilet,Tub/Shower Home Equipment Straight Cane,Hand Held Shower Additional Social History Comment Patient has a sister and some cousins that live nearby. M2 OT-IP Current Condition Start: 01/12/23 15:10 Freq: Status: Active Protocol: Document 01/12/23 15:10 [facility] (Rec: 01/12/23 15:52 [facility] [id number]) Occupational Therapy Current Condition Current Condition Evaluation Date 01/12/23 Treatment Diagnosis Syncopal espisode, GLF, RLE injury Diagnosis Onset Date 01/11/23 M3 OT- IP Subjective and Pain Start: 01/12/23 15:10 Freq: Status: Active Protocol: Document 01/12/23 15:10 [facility] (Rec: 01/12/23 15:52 [facility] [id number]) OT- Subjective Occupational Therapy Visit Type Type Initial Evaluation Visit Start Time 12:58 Visit Stop Time 13:56 Total Visit Minutes 58 Occupational Therapy Visit Comments Patient Comments Pt agreed to get up. Patient/Caregiver Goals Pt wanting to go home but know realizes that she will need help. OT Pain Assessment Pain When Pain Assessed During Mobility Pain Present Pain Present Pain Reported Location Right Ankle Intensity 6 Scale Used Numeric (0 - 10) M4 OT- IP ADL's Start: 01/12/23 15:10 Freq: Status: Active Protocol: Document 01/12/23 15:10 [facility] (Rec: 01/12/23 15:52 [facility] [id number]) OT JOB-Indi-Ievdduc General Evaluation Self-Feeding Ability Independent OT ADL-Grooming General Evaluation Grooming Ability Standby Assistance Comments OT Grooming Comments Pt able to wash her hands while standing at the sink with FWW in front of her. OT ADL-Oral Care Comments Oral Care Comments Not performed as pt to tired. OT ADL-Dressing General Eval Lower Body Dressing Ability Standby Assistance Comments OT Dressing Comments Pt able to osorio/doff her socks on her own. OT ADL-Toileting General Evaluation Toileting Ability Standby Assistance Comments OT Toileting Comments Pt needing cues for completeness to wipe as trying to wipe from the front after a bowel movement. Pt also getting bowels on her hand and not realizing it. OT ADL-Bathing Comments OT Bathing Comments Pt not wanting to shower at this time as too tired. M5 OT- IP IADL's Start: 01/12/23 15:10 Freq: Status: Active Protocol: Document 01/12/23 15:10 [facility] (Rec: 01/12/23 15:52 [facility] [id number]) OT-Instrumental Activities of Daily Living Deficits IADL Deficits Identified Deficits Home Safety Awareness Ability to Problem Solve Emergency Able to Problem Solve Situations Home Safety Comments Pt able to answer home safety questions correctly. M6 OT- IP Functional Cognition Start: 01/12/23 15:10 Freq: Status: Active Protocol: Document 01/12/23 15:10 [facility] (Rec: 01/12/23 15:52 [facility] [id number]) Cognitive Factors Limiting Selfcare Function Cognitive Ability Level of Alertness Alert Patient Orientation Name,Place,Situation Attention Span Ability Capable of Focused Attention, Capable of Sustained Attention Ability to Follow Commands Able to Follow One Step Commands Memory Description Working Impaired Safety Awareness Underestimates Need for Assistance Executive Function Ability Unable to Switch Focus,Unable to Filter Distractions,Unable to Remember Details Cognitive Tests SLUMS Pt scored 25/30 which implies mild neurocognitive disorder and able to recall 4/5 objects after time passed, not able to states 3 or 4 digit numbers backwards, and not able to draw the hands on the clock correctly after time passed. Cognitive Comments Cognitive Assessment Comments Pt scored 264 on [place] Making Part B and needing MOD vc to remember the directions and forgetting to switch from numbers to letters. Pt score implies severe impairments for task switching, visual attention, speed of processing , executive functioning, and mental flexibility. Suggested pt not drive at this time. Pt initially felt that she is able to drive short distance now but then agreed that she will not drive at this time. Pt agreed that she is not thinking as well or as quickly as usual. M7 OT- IP Mobility and Balance Start: 01/12/23 15:10 Freq: Status: Active Protocol: Document 01/12/23 15:10 [facility] (Rec: 01/12/23 15:52 [facility] [id number]) OT- Bed Mobility Assessment Supine to Sit Supine to Sit Assist Standby Assistance Sit to Supine Sit to Supine Assist Standby Assistance OT-Transfer Assessment Sit to and From Stand Sit to and from Stand Standby Assistance Transfers Transfer Ability Standby Assistance Technique Transfer Destination Bed,Toilet Transfer Technique Stand Step Pivot Devices Transfer Assistive Devices Gait Belt,Front Wheeled Walker Comments Mobility Comments Increased time for bed mobility and to walk with FWW to and from the bathroom and having RLE pain , pain per pt from her right ankle to thigh. OT- Balance Assessment Sitting Balance and Reactions Static Sitting Balance Ability Normal Dynamic Sitting Balance Ability Good Standing Balance and Reactions Static Standing Balance Ability Good Dynamic Standing Balance Ability Fair M8 OT- IP Objective Assessments Start: 01/12/23 15:10 Freq: Status: Active Protocol: Document 01/12/23 15:10 [facility] (Rec: 01/12/23 15:52 [facility] [id number]) OT Gross Range of Motion Upper Extremity Range of Motion Assessment Within Functional Limits OT Strength Comments Strength Comments BUE 4/5, pt is right handed. OT- Coordination Assessment Upper Extremity Finger to Nose Test Within Functional Limits OT-Muscle Tone Assessment Muscle Tone WNL Yes OT Sensation Assessment Comments Summary Comments Decreased sensation from at right elbow. Decreased proprioception RUE/ LUE. Pt admit that she does bump into object often at home. M9 OT- IP Assessment and Plan Start: 01/12/23 15:10 Freq: Status: Active Protocol: Document 01/12/23 15:10 [facility] (Rec: 01/12/23 15:52 [facility] [id number]) OT Summary Assessment and Plan Potential Rehabilitation Potential Good Analytic Complexity at Evaluation Moderate Summary OT Impairments Pain,Strength,Balance, Sensation,Functional Cognition ,Functional Mobility,Dressing, Toileting,Bathing,Toilet Transfers,Shower Transfers, Activity Tolerance Progress Towards Goals Slow Progress due to Pain,Slow Progress due to Medical Issues,Slow Progress due to Activity Tolerance,Slow Progress due to Cognition Assessment Summary Pt MOD complexity and main barriers are pain, steps, decreased safety awareness especially for hygiene needs as pt not realizing that her hands were soiled while wiping after a bowel movement. Pt scored 264 seconds on [place] Making Part B which implies severe deficits for visual attention, speed of processing, mental flexibility , executive functioning, and task switching. At this time pt would benefit from someone to stay with her or that she could go to a family member to stay with. Pt states her family has been asking her to come and move in with them. Pt also states has had 6 falls in the past 6 months, most of them while backing up in the bathroom. Therefore pt would benefit from skilled rehab versus home with 24/7 assist and home health. Goals Grooming Goal Independent Dressing Goal Independent Toileting Goal Independent Bathing Goal Independent Toilet Transfer Goal Independent Shower Transfer Goal Independent Days to Meet Goals 10 Frequency of Treatment Frequency Of Treatment Once a Day Treatment Plan OT Treatment Plan ADL Training,Functional Cognition Training,Functional Mobility,Patient/Family Education,Discharge Planning Discharge Recommendations OT Discharge Recommendations SNF Rehab,Home vs SNF Other Discharge Recommendations Home if able to get 24/7 asisst and home health. Home Equipment Needs FWW Transportation Needs at Discharge Private Vehicle,Wheelchair/ Cabulance
--- NOTE | 2023-01-12 15:37 | CM.DANOTE ---
Addendum entered by JACQUI Parker 01/13/23 12:32: DCP Continued: CM reviewed options with patient for HH. Patient requested [facility]. CM team will put in referral for [facility]. Patient was concerned about when HH will be able to come out to the house. CM communicated that it is dependent on [facility] availability. Plan: CM team will place order for [facility] to initiate care. CM team will follow for additional needs. JACQUI Parker Original Note: Initial DCP Assessment Note 77 yo F resident of [place] presents after a syncopal event and fall in a restaurant parking lot, subsequent ankle fx/injury per report. Patient recently admitted at after a fall at home and found to have pneumonia; patient discharged home w/family and close outpatient follow up PCP: Donna Santamaria Payer: [employer] Met w/patient this afternoon to introduce self and role; patient having a difficult time keeping her eyes open. Patient tells this MARKETING BUDGET ANALYST she navigates her home indp and will discharge home w/her sister to assist Discussed home health services briefly (patient falling asleep) and patient says she had HH services for her when he was alive. Patient agreeable to HH if recommended, HH agencies not reviewed at this time Therapy team concerned today about patient's ability to return home alone and wonders if sister can come in for caregiver training (?) This MARKETING BUDGET ANALYST unable to call sister this afternoon; will ask that oncoming CM plan w/patient and family Sunday for an expected return home w/family to assist and likely HH services (?) CM team following closely for coordination of plan JACQUI Kerr Discharge Planning/Care Management CM Discharge Assessment Start: 01/12/23 15:35 Freq: Status: Active Protocol: Document 01/12/23 15:36 [facility] (Rec: 01/12/23 15:37 [facility] [id number]) Discharge Planning Assessment Assigned Hand Edger JACQUI Camacho/Assigned Designee Name Domenica Doran, sister and DPOA Contact Information [phone] Advance Directives? Yes: Advance Directive:DPOA Advance Directives on File Yes History Provided By Patient,Medical Record Prior Living Arrangements House Household Members none Type of transporation used prior to Drives own vehicle admit Independent with ADL's Yes Is patient alert and oriented? Yes Comment used in the past, currently uses no assistive devices. Patient/Family Preference Home with Home Health Comment Discuss home plan w/patient and family, discuss HH services Discharge Plan Home with Home Health Transportation Arrangement Likely sister Referrals Initiated Home Health
--- NOTE | 2023-01-12 16:21 | DIET.CONS ---
Dietary Consultation Note Admission Date: 01/11/2023 17:30 Assessment: 77 y/o F admitted for syncopal episode resulting in GLF. Also MUNA with dehydration. Sybil reports eating one meal per day since July. Reports unintentional weight loss. Per EMR -8% over one year. States she has had reduced appetite. Only eats dinner and drinks soda, juice, and water. She is unsure why her appetite has changed. Diarrhea r/t antibiotics reported x 1 week. Improved now. Denies any diarrhea or constipation. RD consulted for BMI 31, possible chronic hypoglycemia/dehydration. Diet recall: dinner: sandwich with chips OR frozen dinner OR tacos x 2 OR hamburger Beverages: 8oz soda, 6-20oz juice, 32oz water Ht: 167.64 cm Wt: 87.09 kg BMI: 30.9 Last BM: 01/11/23 (01/11/23 18:18) MNA: 12 Gallo Score: 20 Diet: 01/11/23 Dinner Heart Healthy Diet Diet Modifications: Labs: RBC 4.41 X10^6/uL (4.0-5.2) 01/12/23 04:57 Hgb 10.6 g/dL (12.0-16.0) L 01/12/23 04:57 Hct 34.3 % (36-46) L 01/12/23 04:57 Creatinine 1.08 mg/dL (0.52-1.04) H 01/12/23 06:30 Nutrition Diagnosis: Predicted inadequate energy intake r/t reduced appetite aeb 8% weight loss in one year unintentional and diet recall Interventions: Reviewed nutrition recs, incorporating more frequent meals/snacks paired with CHO/PRO. Monitoring/Evaluations: consult prn Electronically Signed by: Caroline Zazueta 01/12/23 16:21 Clinical Dietitian [address] [id number]
[2023-01-12] MEDS: WARFARIN 5 MG TABLET PO (16:36)
--- NOTE | 2023-01-12 16:54 | PM.PN.1 ---
Exam Vital Signs (past 8 hours): - 01/12/23 09:23 01/12/23 12:22 Temperature 97 F L 97.7 F Pulse Rate 71 68 Respiratory Rate 19 16 Blood Pressure 125/56 L 144/77 H Pulse Oximetry 93 95 Oxygen Flow Rate 0 Oxygen Delivery Method Room Air Oxygen Flow Rate 0 Narrative Exam Narrative: General: Patient is a well-developed, well-nourished female, notable mild post CVA dysarthria, in no acute distress at this time. HEENT: Normocephalic, atraumatic, extraocular muscles intact, oral pharynx is clear and mucous membranes are moist. Neck is supple and symmetric, trachea is midline, no adenopathy, no thyroid enlargement, nontender, no masses palpated. Negative for JVD Chest: Normal AP diameter and contour without kyphoscoliosis, no nasal flaring, retractions, tachypneic or labored breathing Lungs: Auscultation of all lung granados are clear without adventitious sounds, wheezes, rhonchi, or rales. Cardio: irregular rhythm, AFib with bradycardic rate without murmur, rubs, or gallops, no carotid bruit, no cardiac pulsations present. Abdomen: Soft nontender, negative for organomegaly, or masses. Bowel sounds are hypoactive present in all 4 quadrants without guarding or rebound, no CVA tenderness. Musculoskeletal: Muscle strength and tone are equal within normal limits, right lower extremity inflammation erythema warmth and pain with palpation to touch from mid tibial through the foot. Full range of motion intact radial and pedal pulses are normal. Skin: Warm dry and intact without rashes, ulcerations or petechiae. With the exception of right lower leg Neuro: Alert and orientated x3, moves all extremities, sensation to touch intact, no gross deficits noted of cranial nerves. Mild dysarthria baseline for patient Psych: Patient has a well-kept appearance, appropriate affect, mental status attitude thought context and judgment are appropriate for age. Objective Labs 01/12/23 04:57 01/12/23 06:30 Labs: Laboratory Results - last 24 hr 01/11/23 01/11/23 01/11/23 14:14 14:14 14:14 WBC RBC Hgb Hct MCV MCH MCHC RDW Plt Count Neut % (Auto) Lymph % (Auto) [place] % (Auto) Eos % (Auto) Baso % (Auto) Neut # (Auto) Lymph # (Auto) [place] # (Auto) Eos # (Auto) Baso # (Auto) PT INR Sodium Potassium Chloride Carbon Dioxide BUN Creatinine Estimated GFR BUN/Creatinine Ratio Glucose Calcium Magnesium 1.9 Total Creatine Kinase CK-MB (CK-2) CK-MB (CK-2) Rel Index Troponin I Procalcitonin 0.05 TSH 4.93 H Free T4 1.08 Urine Color Urine Appearance Urine pH Ur Specific [place] Urine Protein Urine Glucose (UA) Urine Ketones Urine Occult Blood Urine Nitrate Urine Bilirubin Urine Urobilinogen Ur Leukocyte Esterase Urine RBC Urine WBC Ur Squamous Epith Cells Urine Bacteria Ur Culture Indicated? SARS-CoV-2 (PCR) 01/11/23 01/11/23 01/11/23 16:24 16:51 16:51 WBC RBC Hgb Hct MCV MCH MCHC RDW Plt Count Neut % (Auto) Lymph % (Auto) [place] % (Auto) Eos % (Auto) Baso % (Auto) Neut # (Auto) Lymph # (Auto) [place] # (Auto) Eos # (Auto) Baso # (Auto) PT INR Sodium Potassium Chloride Carbon Dioxide BUN Creatinine Estimated GFR BUN/Creatinine Ratio Glucose Calcium Magnesium Total Creatine Kinase 50 CK-MB (CK-2) TNP CK-MB (CK-2) Rel Index TNP Troponin I < 0.012 Procalcitonin TSH Free T4 Urine Color Yellow Urine Appearance Clear Urine pH 5.5 Ur Specific [place] 1.010 Urine Protein Negative Urine Glucose (UA) Negative Urine Ketones Negative Urine Occult Blood Negative Urine Nitrate Negative Urine Bilirubin Negative Urine Urobilinogen 0.2 Ur Leukocyte Esterase Negative Urine RBC 0-1/hpf Urine WBC 0-1/hpf Ur Squamous Epith Cells 5-10 /hpf H Urine Bacteria Few (2-10) H Ur Culture Indicated? Cult not indicated SARS-CoV-2 (PCR) Negative 01/12/23 01/12/23 01/12/23 04:57 04:57 04:57 WBC 9.9 RBC 4.41 Hgb 10.6 L Hct 34.3 L MCV 77.7 L MCH 24.1 L MCHC 31.1 RDW 19.9 H Plt Count 292 Neut % (Auto) 76.9 H Lymph % (Auto) 8.1 L [place] % (Auto) 12.6 Eos % (Auto) 1.4 L Baso % (Auto) 1.0 Neut # (Auto) 7600 H Lymph # (Auto) 800 L [place] # (Auto) 1200 H Eos # (Auto) 100 Baso # (Auto) 100 PT 20.7 H INR 1.8 H Sodium Potassium Chloride Carbon Dioxide BUN Creatinine Estimated GFR BUN/Creatinine Ratio Glucose Calcium Magnesium Total Creatine Kinase CK-MB (CK-2) CK-MB (CK-2) Rel Index Troponin I < 0.012 Procalcitonin TSH Free T4 Urine Color Urine Appearance Urine pH Ur Specific [place] Urine Protein Urine Glucose (UA) Urine Ketones Urine Occult Blood Urine Nitrate Urine Bilirubin Urine Urobilinogen Ur Leukocyte Esterase Urine RBC Urine WBC Ur Squamous Epith Cells Urine Bacteria Ur Culture Indicated? SARS-CoV-2 (PCR) 01/12/23 06:30 WBC RBC Hgb Hct MCV MCH MCHC RDW Plt Count Neut % (Auto) Lymph % (Auto) [place] % (Auto) Eos % (Auto) Baso % (Auto) Neut # (Auto) Lymph # (Auto) [place] # (Auto) Eos # (Auto) Baso # (Auto) PT INR Sodium 139 Potassium 4.5 Chloride 105 Carbon Dioxide 28 BUN 16 Creatinine 1.08 H Estimated GFR 53 L BUN/Creatinine Ratio 14.8 Glucose 103 Calcium 8.3 L Magnesium Total Creatine Kinase CK-MB (CK-2) CK-MB (CK-2) Rel Index Troponin I Procalcitonin TSH Free T4 Urine Color Urine Appearance Urine pH Ur Specific [place] Urine Protein Urine Glucose (UA) Urine Ketones Urine Occult Blood Urine Nitrate Urine Bilirubin Urine Urobilinogen Ur Leukocyte Esterase Urine RBC Urine WBC Ur Squamous Epith Cells Urine Bacteria Ur Culture Indicated? SARS-CoV-2 (PCR) [facility] Medical History Anticoagulated on Coumadin Atrial fibrillation Gout History of multiple cerebrovascular accidents (CVAs) Hypertension Hypothyroidism Surgical History No significant past surgical history Family History (Updated 01/11/23 @ 23:10 by KEVIN Ramirez) Father No problems noted. Mother No problems noted. Social History household members: none Smoking Status: Never smoker alcohol intake: never Assessment & Plan Assessment & Plan narrative: ?1. Syncopal episode resulting in right foot fracture, acute, present on admission -right foot and ankle XR with possible malleolar fracture, however no tenderness on exam to malleolus -CT foot showed right intraarticular lateral cuneiform fracture -Dr. Soto ortho consulted and recommended nonoperative and walking boot, f/u with her in clinic in a couple weeks -right LLE U/S negative for DVT -unclear etiology Diff: postprandial or orthostatic hypotension, hypoglycemia, TIA/Stroke, dehydration. -initial glucose 85, A1c pending -PT/OT rec SNF -orthostatics negative -echo shows EF 50-55%, mild LVH, mild MR and TR with RVSP 66 -tele 2. MUNA, improving -creatinine 1.48 -likely secondary to hypovolemia -NS at 80 cc/HR -trend renal function, monitor I&O -Cr now downtrending 3. Anemia, chronic, present on admission - H/ H 10.5/34 MCV 77.7, MCH 24.2.-are at baseline -monitor for bleeding 4. History of CVA, with dysarthria, present on admission -has baseline dysarthria -continue coumadin -monitor for bleeding 5. Atrial fibrillation, chronic, rate controlled, present on admission -continue coumadin, metoprolol 6. Hypertension, essential, present on admission -continue metoprolol 7. Hypothyroid, acquired, acute on chronic, present on admission -initial TSH 4.93-increased levothyroxine from 50mcg to 75mcg repeat TSH/T4 in 6 weeks with PCP 8. Hiatal hernia, chronic, present on admission -ordered h2 blockers 9. Obesity, mild, acute on chronic, present on admission -BMI 31 -dietary consult ordered regarding nutritional education and information for dietary, lifestyle, exercise, and weight changes. -the patient is at much higher risk for medical and surgical complications due to obesity as it relates to chronic illnesses:, and acute illness. The patient's obesity increases the difficulty and complexity of medical and/or surgical interventions, management and increases the chances of poor outcome such as morbidity and mortality as well as impaired wound healing. CODE: Full Proxy: Shamir Wadsworth, proxy COVID PCR: Negative DVT/VTE prophylaxis:cont coumadin & left SCD only Dispo: PT rec SNF. Patient hesistant. So home vs SNF on 01/13. Quality VTE Deep Vein Thrombosis/Pulmonary Embolism Present on Admission: No
[2023-01-12] MEDS: cefTRIAXone 1,000 MG in SODIUM CHLORIDE 0.9% 100 ML 200 MG IV (18:10)
--- NOTE | 2023-01-12 18:21 | P.CONS_ITS ---
History of Present Illness Consult details Date Patient Seen: 01/12/23 Time Patient Seen: 18:31 Chief complaint: LOC no memory of incident Reason for consult: foot Requesting provider: Yash Castrejon Narrative: Patient is a 77-year-old female. She was leaving a lunch with her sister in getting into a car when she went to step up on the rail and fell back. She had a syncopal or near syncopal episode and ended up falling. She states she came to but was told by her sister that she had ?never seen anything like it before? patient states the same. She states a nice man help them into the car and they came to [facility]. She is had workup for her syncopal episode and then was able to notice that her right foot was swollen and painful. She denies any other pains other than a little bit around her head. X-rays were taken of her foot that were read as negative but difficult with the quality. And then she had ankle x-rays that demonstrated some swelling questionable lucency around the medial malleolus but likely chronic. Due to her swelling and pain she had a CT scan of the lower extremity that then revealed the comminuted lateral cuneiform fracture. She endorses pain in the right foot and swelling. Denies any numbness or tingling. Meds Home Medications and Allergies Home Medications Medication Instructions Recorded Confirmed Type allopurinol 300 mg tablet 300 mg PO DAILY 12/29/19 01/11/23 History ascorbic acid (vitamin C) 500 mg 500 mg PO QAM 12/29/19 01/11/23 History tablet (Vitamin C) atorvastatin 20 mg tablet 20 mg PO BEDTIME 12/29/19 01/11/23 History calcium carbonate 600 mg-vitamin 1 tab PO DAILY 12/29/19 01/11/23 History D3 10 mcg (400 unit) chewable tablet (Calcium 600 with Vitamin D3) cetirizine 10 mg tablet (Zyrtec) 10 mg PO PRN PRN Allergy Symptoms 12/29/19 01/11/23 History cyanocobalamin (vitamin B-12) 1,000 mcg PO DAILY 12/29/19 01/11/23 History 1,000 mcg tablet (Vitamin B-12) fluoxetine 20 mg capsule 20 mg PO BID 12/29/19 01/11/23 History gabapentin 300 mg capsule 900 mg PO BEDTIME 12/29/19 01/11/23 History levothyroxine 50 mcg tablet 50 mcg PO QAM 12/29/19 01/11/23 History omeprazole 20 mg capsule,delayed 20 mg PO DAILY 12/29/19 01/11/23 History release warfarin 5 mg tablet 5 mg PO QPM 12/29/19 01/11/23 History metoprolol succinate 50 mg 75 mg PO BID #45 tabs 01/01/20 01/11/23 Rx tablet,extended release 24 hr Allergies Allergy/AdvReac Type Severity Reaction Status Date / Time amlodipine [AMLODIPINE] Allergy Unknown Verified 01/11/23 14:01 dexlansoprazole Allergy Unknown Verified 01/11/23 14:01 [From DEXILANT] lisinopril [LISINOPRIL] Allergy Unknown Verified 01/11/23 14:01 simvastatin [SIMVASTATIN] Allergy Unknown Verified 01/11/23 14:01 diltiazem Allergy Verified 01/11/23 14:01 Review of Systems Review of Systems ROS: Yes All systems reviewed with the patient and are negative except as otherwise documented Exam Vital Signs (past 8 hours): - 01/12/23 12:22 Temperature 97.7 F Pulse Rate 68 Respiratory Rate 16 Blood Pressure 144/77 H Pulse Oximetry 95 Oxygen Delivery Method Room Air Oxygen Flow Rate 0 Narrative Exam Narrative: Alert and oriented female in no acute distress lying in bed. Answers questions appropriately. Normocephalic atraumatic Respiratory unlabored on room air Heart regular rate and rhythm Moving bilateral upper extremities without limitation Moving left lower extremity without limitation. Negative log roll. No tenderness to palpation lower extremity knee or thigh. Right lower extremity with swelling along the dorsum of the foot and ankle. Faint ecchymosis. Acute tenderness to palpation dorsally along the foot in the area of the lateral cuneiform. No tenderness around the 1st TMT. Able to flex and extend the toes. No tenderness on the medial or lateral malleoli. Achilles palpable and intact. Calf is soft. Does demonstrate moderate swelling over the dorsum of the foot to the level of the ankle. No wounds. There is a palpable dorsalis pedis pulse. No pain with palpation around the knee. Demonstrates knee flexion extension. Negative hip log roll. Sensation grossly intact to light touch. Objective Imaging CT scan right foot: My impression: Minimally displaced comminuted lateral cuneiform fracture with extension into the lateral cuneiform 3rd metatarsal joint. No other fractures or dislocation demonstrated. Radiologist's impression: Lateral cuneiform fracture1. Acute nondisplaced and comminuted intra-articular fracture involving lateral cuneiform of right foot as above. ? 2. [id number] osteoarthritic changes throughout right foot.? No other fracture or dislocation.? No suspicious bony lesions. ? 3. No abnormal soft tissue calcifications.? No full-thickness tendon rupture.? ? Labs 01/12/23 04:57 01/12/23 06:30 Labs: Laboratory Results - last 24 hr 01/11/23 01/11/23 01/11/23 14:14 14:14 14:14 WBC RBC Hgb Hct MCV MCH MCHC RDW Plt Count Neut % (Auto) Lymph % (Auto) [place] % (Auto) Eos % (Auto) Baso % (Auto) Neut # (Auto) Lymph # (Auto) [place] # (Auto) Eos # (Auto) Baso # (Auto) PT INR Sodium Potassium Chloride Carbon Dioxide BUN Creatinine Estimated GFR BUN/Creatinine Ratio Glucose Calcium Magnesium 1.9 Troponin I Procalcitonin 0.05 TSH 4.93 H Free T4 1.08 01/12/23 01/12/23 01/12/23 04:57 04:57 04:57 WBC 9.9 RBC 4.41 Hgb 10.6 L Hct 34.3 L MCV 77.7 L MCH 24.1 L MCHC 31.1 RDW 19.9 H Plt Count 292 Neut % (Auto) 76.9 H Lymph % (Auto) 8.1 L [place] % (Auto) 12.6 Eos % (Auto) 1.4 L Baso % (Auto) 1.0 Neut # (Auto) 7600 H Lymph # (Auto) 800 L [place] # (Auto) 1200 H Eos # (Auto) 100 Baso # (Auto) 100 PT 20.7 H INR 1.8 H Sodium Potassium Chloride Carbon Dioxide BUN Creatinine Estimated GFR BUN/Creatinine Ratio Glucose Calcium Magnesium Troponin I < 0.012 Procalcitonin TSH Free T4 01/12/23 06:30 WBC RBC Hgb Hct MCV MCH MCHC RDW Plt Count Neut % (Auto) Lymph % (Auto) [place] % (Auto) Eos % (Auto) Baso % (Auto) Neut # (Auto) Lymph # (Auto) [place] # (Auto) Eos # (Auto) Baso # (Auto) PT INR Sodium 139 Potassium 4.5 Chloride 105 Carbon Dioxide 28 BUN 16 Creatinine 1.08 H Estimated GFR 53 L BUN/Creatinine Ratio 14.8 Glucose 103 Calcium 8.3 L Magnesium Troponin I Procalcitonin TSH Free T4 PFSH Medical History Anticoagulated on Coumadin Atrial fibrillation Gout History of multiple cerebrovascular accidents (CVAs) Hypertension Hypothyroidism Surgical History No significant past surgical history Family History Father No problems noted. Mother No problems noted. Social History household members: none Tobacco & Substance Use Smoking Status: Never smoker alcohol intake: never Assessment & Plan Assessment and plan (1) Fracture of lateral cuneiform: Qualifiers: Encounter type: initial encounter Fracture type: closed Laterality: right Status: Acute Plan Weightbear as tolerated stiff-soled shoe or walking boot, elevation for swelling. Use a walker to share weight-bearing and for balance. Assessment & Plan narrative: Moderate medical decision-making. New problem --acute fracture right lateral cuneiform bone in the midfoot. Substantial swelling. No significant displacement. Indication for non operative treatment. Discussed using a walking boot or if this is too heavy stiff-soled shoe . X-rays independently interpreted. Hospitalist and ER notes reviewed. Decision for non operative treatment right lateral cuneiform midfoot fracture. Follow-up in Orthopedic Clinic for re-evaluation in 4 weeks (anticipate she would use the boot for 4-6 weeks) if there any concerns about worsening pain or inability to weight bear in the boot and I would see her back earlier for weight-bearing x-rays in the clinic. COVID-19 COVID-19 status: Negative
[2023-01-12] MEDS: ATORVASTATIN 20 MG TABLET PO (21:30)
[2023-01-12] MEDS: GABAPENTIN 300 MG CAPSULE 900 MG PO (21:30)
[2023-01-12] MEDS: SENNOSIDES 8.6 MG TABLET PO (21:31)
[2023-01-13] VITALS (7 sets, daily range): BP systolic 113–172; BP diastolic 61–92; PULSE 61–70; RESP 15–22; TEMP 36.3–36.9; O2SAT 93–96
[2023-01-13 00:30] LABS: x Labcorp Estim. Avg Glu (eAG) 128 mg/dL (.); x Labcorp Hemoglobin A1c 6.1 % (4.8-5.6)
[2023-01-13] MEDS: LEVOTHYROXINE 50 MCG TABLET 75 MCG PO (06:19)
[2023-01-13] MEDS: PANTOPRAZOLE DR 20 MG TABLET PO (06:19)
[2023-01-13 06:29] LABS: Add Manual Diff / Slide Review NO; Basophils Absolute Auto 100 /uL (0-100); Basophils Percent Auto 1.3 % (0-2); Eosinophils Absolute Auto 100 /uL (0-450); Eosinophils Percent Auto 1.7 % (2-4); Hematocrit 30.7 % (36-46); Hemoglobin 9.6 g/dL (12.0-16.0); Lymphocytes Absolute Auto 1400 /uL (1100-4500); Lymphocytes Percent Auto 19.4 % (25-40); Mean Corpuscular HGB Conc 31.4 % (30-36); Mean Corpuscular Volume 76.5 fL (80-100); Monocytes Absolute Auto 900 /uL (0-900); Neutrophils Absolute Auto 4500 /uL (1500-7000); Neutrophils Percent Auto 64.6 % (50-75); Platelet Count 252 X10^3/uL (150-400); Red Blood Cell Count 4.01 X10^6/uL (4.0-5.2); Red Cell Distribution Width 19.8 % (11.6-14.8)
[2023-01-13 06:38] LABS: INR 2.3 (0.9-1.3); Prothrombin Time 26.8 SECONDS (10.1-12.7)
[2023-01-13 06:43] LABS: BUN Creatinine Ratio 13.7 (6-22); Blood Urea Nitrogen 16 mg/dL (7-17); Carbon Dioxide 26 mmol/L (22-32); Chloride 108 mmol/L (98-107); Estimated Glomerular Filt Rate 48 mL/min (>60); Glucose 100 mg/dL (80-110); HEMOLYSIS < 15 (0-50); Potassium 4.1 mmol/L (3.4-5.1); Sodium 139 mmol/L (137-145)
[2023-01-13] MEDS: allopurinoL 100 MG TABLET 300 MG PO (08:52)
[2023-01-13] MEDS: METOPROLOL ER 50 MG TABLET 75 MG PO ×2 (08:52→20:55)
[2023-01-13] MEDS: FLUoxetine 20 MG CAPSULE PO ×2 (08:52→20:56)
[2023-01-13] MEDS: DOXYCYCLINE HYCLATE 100 MG TABLET PO ×2 (08:53→20:56)
--- NOTE | 2023-01-13 09:15 | PT.IPTN ---
Current Diagnoses Displaced fracture of lateral cuneiform of unspecified foot, initial encounter for closed fracture (01/11/23) Physical Therapy Treatment Note M2 PT-IP Current Condition Start: 01/12/23 11:21 Freq: NEEDED Status: Active Protocol: Document 01/12/23 11:21 ES (Rec: 01/12/23 11:45 ES [id number]) Physical Therapy Current Condition Current Condition Evaluation Date 01/12/23 Treatment Diagnosis Syncopal episode, GLF, RLE injury, weakness Onset Date 01/11/23 M3 PT-IP Subjective Start: 01/12/23 11:21 Freq: NEEDED Status: Active Protocol: Document 01/13/23 09:43 TS (Rec: 01/13/23 10:23 TS [id number]) Subjective Physical Therapy Visit Type Type Treatment Note Visit Start Time 09:15 Visit Stop Time 09:40 Total Visit Minutes 25 Notes Spoke with on phone for clarification of parameters for ortho boot. Pt is to be WBAT on boot and to use with all weight bearing activities, can remove while in bed. Discussed parameters with pt and recommendations from MD. Number of STOCK TRANSFER CLERK Visits 1 Physical Therapy Visit Comments Patient Comments Pt found resting in bed, agreeable to PT. Pt has ortho boot for fracture in R foot. Therapy Pain Assessment Pain When Pain Assessed At Rest Pain Present Pain Present Denied Pain M4 PT-IP Mobility and Gait Start: 01/12/23 11:21 Freq: NEEDED Status: Active Protocol: Document 01/13/23 09:43 TS (Rec: 01/13/23 10:23 TS [id number]) PT-Bed Mobility Assessment Supine to Sit Supine to Sit Standby Assistance Sit to Supine Sit to Supine Standby Assistance Scooting Scooting to Edge of Bed Standby Assistance PT-Transfer Assessment Sit to and From Stand Sit to and from Stand Standby Assistance Equipment Transfer Assistive Device Gait Belt,Front Wheeled Walker Orthotic/Prosthetic Devices or Brace: No Comments Mobility Comments Supine to sit SBA with HOB elevated 45D with BUE support. Sat EOB for donning of ortho boot. Sit to stand x2 SBA with BUE support on FWW. Pt ambulated in room ~80 w/FWW SBA with ortho boot donned, antalgic gait due to boot, denied any pain. Sit to supine SBA with HOB elevated. Pt was left in bed with call light nearby, educated on importance of wearing boot when weight bearing, Rn notified. Gait Assessment Gait Gait Assistance Required: Standby Assistance Distance (Feet) 80 Assistive Devices Assistive Device Gait Belt,Front Wheeled Walker Orthotic/Prosthetic Devices or Brace: No Gait Deviations General Gait Pattern Antalgic,Decreased Stride Length,Decreased Feet Clearance,Step-to Gait Factors Limiting Gait Function Factors Limiting Gait Function Decreased Strength,Pain,Poor Balance Comments Gait Comments Pt reported no pain with ambulation, slightly unsteady in FWW due to boot height difference. Stair Climbing Assessment Comments Stair Climbing Comments Did not feel comfortable attempting today. PT-Balance Assessment Sitting Balance and Reactions Static Sitting Balance Ability Normal Dynamic Sitting Balance Ability Good Standing Balance and Reactions Static Standing Balance Ability Good Dynamic Standing Balance Ability Fair Device Used FWW M5 PT-IP Objective Assessments Start: 01/12/23 11:21 Freq: NEEDED Status: Active Protocol: Document 01/12/23 11:21 ES (Rec: 01/12/23 11:45 ES [id number]) Orientation Orientation/Cognition Level of Alertness Alert Orientation Name,Age,Birthday,Month,Year, Day of Week,Place,Situation Language Function Ability Word Finding Difficulties Safety Awareness Decreased Safety Awareness Memory Description No Deficits Noted Gross Range of Motion Upper Extremity ROM Assessment Within Functional Limits Lower Extremity ROM Assessment Right Impaired Impairments RLE stiff and painful Strength Upper Extremity Strength Assessment Within Functional Limits Lower Extremity Strength Assessment Right Impaired Comments Strength Comments RLE weaker compared to L, patient reported it is due to pain M6 PT-IP Treatment Start: 01/12/23 11:21 Freq: NEEDED Status: Active Protocol: Document 01/13/23 09:43 TS (Rec: 01/13/23 10:23 TS [id number]) Physical Therapy Treatment Education Education Provided Safety M7 PT-IP Assessment and Plan Start: 01/12/23 11:21 Freq: NEEDED Status: Active Protocol: Document 01/13/23 09:43 TS (Rec: 01/13/23 10:23 TS [id number]) PT Summary Assessment and Plan Potential Rehabilitation Potential Good Summary Impairments Pain,ROM,Strength,Balance, Transfers,Gait,Activity Tolerance Assessment Summary Pt progressing well with her mobility with ortho boot donned this session. She is SBA for all bed mobility, sit to stands and during gait. She progressed her gait with boot to ~80' SBA in room, no complaints of pain with boot donned, is slightly unsteady in FWW due to boot height difference. Pt not comfortable doing stairs at this time. PT recommends SNF vs Home 24/7 assist available. Pt is Ind at home and does not have the help she needs to safely perform ADL's and mobility at home. She may benefit from continued skilled therapy to progress functional mobility prior to going home. Pt will need to do 7 stairs before d/c home. Goals Bed Mobility Goal Independent Transfer Goal Independent,Cane Gait Goal Independent,Cane Gait Distance 100 Other Goals Patient will be able to ascend /descend 7 stairs with B rails indep. Days to Meet Goals 7 Frequency of Treatment Frequency Of Treatment Once a Day Treatment Plan Physical Therapy Treatment Plan Transfer Training,Gait Training,Therapeutic Exercise, Balance Retraining,Discharge Planning,Manual Therapy Other Recommendations and Next Treatment Progress ambulation, standing Focus tolerance, stair training. Precautions Other Precautions High fall risk Weight Bearing Status Weight Bearing Status Weight Bear as Tolerated Recommendations To Nursing Amount of Assist Needed 1 Person Assist Discharge Recommendations PT Discharge Recommendations Home vs SNF Equipment Needed for Home Before May need FWW Discharge Transportation Needs at Discharge Private Vehicle,Wheelchair/ Cabulance
--- NOTE | 2023-01-13 09:15 | PT.IPTN ---
Current Diagnoses Displaced fracture of lateral cuneiform of unspecified foot, initial encounter for closed fracture (01/11/23) Physical Therapy Treatment Note M2 PT-IP Current Condition Start: 01/12/23 11:21 Freq: NEEDED Status: Active Protocol: Document 01/12/23 11:21 ES (Rec: 01/12/23 11:45 ES [id number]) Physical Therapy Current Condition Current Condition Evaluation Date 01/12/23 Treatment Diagnosis Syncopal episode, GLF, RLE injury, weakness Onset Date 01/11/23 M3 PT-IP Subjective Start: 01/12/23 11:21 Freq: NEEDED Status: Active Protocol: Document 01/13/23 09:43 TS (Rec: 01/13/23 09:59 TS [id number]) Subjective Physical Therapy Visit Type Type Treatment Note Visit Start Time 09:15 Visit Stop Time 09:40 Total Visit Minutes 25 Number of ELECTRICAL HELPER Visits 1 Physical Therapy Visit Comments Patient Comments Pt found resting in bed, agreeable to PT. Pt has ortho boot for fracture in R foot. Therapy Pain Assessment Pain When Pain Assessed At Rest Pain Present Pain Present Denied Pain M4 PT-IP Mobility and Gait Start: 01/12/23 11:21 Freq: NEEDED Status: Active Protocol: Document 01/13/23 09:43 TS (Rec: 01/13/23 09:59 TS [id number]) PT-Bed Mobility Assessment Supine to Sit Supine to Sit Standby Assistance Sit to Supine Sit to Supine Standby Assistance Scooting Scooting to Edge of Bed Standby Assistance PT-Transfer Assessment Sit to and From Stand Sit to and from Stand Standby Assistance Equipment Transfer Assistive Device Gait Belt,Front Wheeled Walker Orthotic/Prosthetic Devices or Brace: No Comments Mobility Comments Supine to sit SBA with HOB elevated 45D with BUE support. Sat EOB for donning of ortho boot. Sit to stand x2 SBA with BUE support on FWW. Pt ambulated in room ~80 w/FWW SBA with ortho boot donned, antalgic gait due to boot, denied any pain. Sit to supine SBA with HOB elevated. Pt was left in bed with call light nearby, educated on importance of wearing boot when weight bearing, Rn notified. Gait Assessment Gait Gait Assistance Required: Standby Assistance Distance (Feet) 80 Assistive Devices Assistive Device Gait Belt,Front Wheeled Walker Orthotic/Prosthetic Devices or Brace: No Gait Deviations General Gait Pattern Antalgic,Decreased Stride Length,Decreased Feet Clearance,Step-to Gait Factors Limiting Gait Function Factors Limiting Gait Function Decreased Strength,Pain,Poor Balance Comments Gait Comments Pt reported no pain with ambulation, slightly unsteady in FWW due to boot height difference. Stair Climbing Assessment Comments Stair Climbing Comments Did not feel comfortable attempting today. PT-Balance Assessment Sitting Balance and Reactions Static Sitting Balance Ability Normal Dynamic Sitting Balance Ability Good Standing Balance and Reactions Static Standing Balance Ability Good Dynamic Standing Balance Ability Fair Device Used FWW M5 PT-IP Objective Assessments Start: 01/12/23 11:21 Freq: NEEDED Status: Active Protocol: Document 01/12/23 11:21 ES (Rec: 01/12/23 11:45 ES [id number]) Orientation Orientation/Cognition Level of Alertness Alert Orientation Name,Age,Birthday,Month,Year, Day of Week,Place,Situation Language Function Ability Word Finding Difficulties Safety Awareness Decreased Safety Awareness Memory Description No Deficits Noted Gross Range of Motion Upper Extremity ROM Assessment Within Functional Limits Lower Extremity ROM Assessment Right Impaired Impairments RLE stiff and painful Strength Upper Extremity Strength Assessment Within Functional Limits Lower Extremity Strength Assessment Right Impaired Comments Strength Comments RLE weaker compared to L, patient reported it is due to pain M6 PT-IP Treatment Start: 01/12/23 11:21 Freq: NEEDED Status: Active Protocol: Document 01/13/23 09:43 TS (Rec: 01/13/23 09:59 TS [id number]) Physical Therapy Treatment Education Education Provided Safety M7 PT-IP Assessment and Plan Start: 01/12/23 11:21 Freq: NEEDED Status: Active Protocol: Document 01/13/23 09:43 TS (Rec: 01/13/23 09:59 TS [id number]) PT Summary Assessment and Plan Potential Rehabilitation Potential Good Summary Impairments Pain,ROM,Strength,Balance, Transfers,Gait,Activity Tolerance Assessment Summary Pt progressing well with her mobility with ortho boot donned this session. She is SBA for all bed mobility, sit to stands and during gait. She progressed her gait with boot to ~80' SBA in room, no complaints of pain with boot donned, is slightly unsteady in FWW due to boot height difference. Pt not comfortable doing stairs at this time. PT recommends SNF vs Home / assist available. Pt is Ind at home and does not have the help she needs to safely perform ADL's and mobility at home. She may benefit from continued skilled therapy to progress functional mobility prior to going home. Pt will need to do 7 stairs before d/c home. Goals Bed Mobility Goal Independent Transfer Goal Independent,Cane Gait Goal Independent,Cane Gait Distance 100 Other Goals Patient will be able to ascend /descend 7 stairs with B rails indep. Days to Meet Goals 7 Frequency of Treatment Frequency Of Treatment Once a Day Treatment Plan Physical Therapy Treatment Plan Transfer Training,Gait Training,Therapeutic Exercise, Balance Retraining,Discharge Planning,Manual Therapy Other Recommendations and Next Treatment Progress ambulation, standing Focus tolerance, stair training. Precautions Other Precautions High fall risk Weight Bearing Status Weight Bearing Status Weight Bear as Tolerated Recommendations To Nursing Amount of Assist Needed 1 Person Assist Discharge Recommendations PT Discharge Recommendations Home vs SNF Equipment Needed for Home Before May need FWW Discharge Transportation Needs at Discharge Private Vehicle,Wheelchair/ Cabulance
--- NOTE | 2023-01-13 13:09 | PM.PN.1 ---
Subjective Subjective Interval history: Preferring to go home. However unable to do stairs as of yet. Needs 1 more night to have clearing of stairs by PT. Lives alone. Discharge prescriptions have been sent however. Exam Vital Signs (past 8 hours): - 01/13/23 05:15 01/13/23 07:51 01/13/23 08:52 Temperature 97.3 F L 98.1 F Pulse Rate 70 61 61 Respiratory Rate 20 15 Blood Pressure 113/61 154/80 H 154/80 H Pulse Oximetry 93 94 Oxygen Delivery Method Room Air Oxygen Flow Rate 0 Narrative Exam Narrative: General:? Patient is a well-developed, well-nourished female, no acute medical distress. HEENT:? Normocephalic, atraumatic, extraocular muscles intact. Pupils equal reactive to light. Chest:? Normal AP diameter and contour without kyphoscoliosis, no nasal flaring, retractions, tachypneic or? labored breathing Lungs:? Auscultation of all lung granados are clear with no wheezes or crackles. Cardio: irregular rhythm, AFib with no extra sounds or murmurs. Abdomen:? Soft nontender, negative for organomegaly, or masses.? Bowel sounds are present. Musculoskeletal:? Muscle strength and tone are equal within normal limits, right lower extremity inflammation erythema warmth and pain with palpation to touch from mid tibial through the foot. Full range of motion intact radial and pedal pulses are normal. Skin:? Warm dry and intact without rashes, ulcerations or petechiae.? With the exception of right lower leg Neuro:? Alert and orientated x3, moves all extremities, sensation normal. Psych:? Patient has a well-kept appearance, appropriate affect, and noted mood changes or depression. Objective Labs 01/13/23 06:20 01/13/23 06:20 Labs: Laboratory Results - last 24 hr 01/12/23 01/13/23 01/13/23 Unknown 06:20 06:20 WBC 7.0 RBC 4.01 Hgb 9.6 L Hct 30.7 L MCV 76.5 L MCH 24.0 L MCHC 31.4 RDW 19.8 H Plt Count 252 Neut % (Auto) 64.6 Lymph % (Auto) 19.4 L [place] % (Auto) 13.0 Eos % (Auto) 1.7 L Baso % (Auto) 1.3 Neut # (Auto) 4500 Lymph # (Auto) 1400 [place] # (Auto) 900 Eos # (Auto) 100 Baso # (Auto) 100 PT 26.8 H D INR 2.3 H Sodium Potassium Chloride Carbon Dioxide BUN Creatinine Estimated GFR BUN/Creatinine Ratio Glucose Hgb A1c (Ref Lab) 6.1 H Estim Average Glucose 128 Calcium 01/13/23 06:20 WBC RBC Hgb Hct MCV MCH MCHC RDW Plt Count Neut % (Auto) Lymph % (Auto) [place] % (Auto) Eos % (Auto) Baso % (Auto) Neut # (Auto) Lymph # (Auto) [place] # (Auto) Eos # (Auto) Baso # (Auto) PT INR Sodium 139 Potassium 4.1 Chloride 108 H Carbon Dioxide 26 BUN 16 Creatinine 1.17 H Estimated GFR 48 L BUN/Creatinine Ratio 13.7 Glucose 100 Hgb A1c (Ref Lab) Estim Average Glucose Calcium 8.0 L PFSH Medical History Anticoagulated on Coumadin Atrial fibrillation Gout History of multiple cerebrovascular accidents (CVAs) Hypertension Hypothyroidism Surgical History No significant past surgical history Family History Father No problems noted. Mother No problems noted. Social History household members: none Smoking Status: Never smoker alcohol intake: never Assessment & Plan Assessment & Plan narrative: ?1. Syncopal episode resulting in right foot fracture, acute, present on admission -right foot and ankle XR with possible malleolar fracture, however no tenderness on exam to malleolus -CT foot showed right intraarticular lateral cuneiform fracture -Dr. Soto ortho consulted and recommended nonoperative and walking boot, f/u with her in clinic in a couple weeks -right LLE U/S negative for DVT -unclear etiology Diff: postprandial or orthostatic hypotension, hypoglycemia, TIA/Stroke, dehydration. -initial glucose 85, A1c pending -PT/OT rec SNF -orthostatics negative -echo shows EF 50-55%, mild LVH, mild MR and TR with RVSP 66 -tele -progressing with PT. needs to be able to do stairs to go home appropriately. 2. MUNA, improving -creatinine 1.48, creatinine now improved to 1.17 -likely secondary to hypovolemia -NS at 80 cc/HR -trend renal function, monitor I&O -Cr now downtrending -GFR increased to 48 3. Anemia, chronic, present on admission - H/ H 10.5/34 MCV 77.7, MCH 24.2.-are at baseline, today hemoglobin 9.6 4. History of CVA, with dysarthria, present on admission -has baseline dysarthria -continue coumadin -monitor for bleeding 5. Atrial fibrillation, chronic, rate controlled, present on admission -continue coumadin, metoprolol 6. Hypertension, essential, present on admission -continue metoprolol, reasonable control 7. Hypothyroid, acquired, acute on chronic, present on admission -initial TSH 4.93-increased levothyroxine from 50mcg to 75mcg repeat TSH/T4 in 6 weeks with PCP -tolerating increased dose 8. Hiatal hernia, chronic, present on admission -ordered h2 blockers 9. Obesity, mild, acute on chronic, present on admission -BMI 31 -dietary consult ordered regarding nutritional education and information for dietary, lifestyle, exercise, and weight changes. -the patient is at much higher risk for medical and surgical complications due to obesity as it relates to chronic illnesses:, and acute illness.? The patient's obesity increases the difficulty and complexity of medical and/or surgical interventions, management and increases the chances of poor outcome such as morbidity and mortality as well as impaired wound healing. Follow clinically and labs. Expect discharge once able to do stairs. ? CODE: Full Proxy: Shamir Wadsworth, proxy COVID PCR:? Negative DVT/VTE prophylaxis:cont coumadin & left SCD only Quality VTE Deep Vein Thrombosis/Pulmonary Embolism Present on Admission: No
[2023-01-13] MEDS: WARFARIN 5 MG TABLET PO (16:17)
[2023-01-13] MEDS: cefTRIAXone 1,000 MG in SODIUM CHLORIDE 0.9% 100 ML 200 MG IV (17:18)
[2023-01-13] MEDS: GABAPENTIN 300 MG CAPSULE 900 MG PO (20:55)
[2023-01-13] MEDS: ATORVASTATIN 20 MG TABLET PO (20:55)
[2023-01-13] MEDS: MELATONIN 3 MG TABLET 6 MG PO (20:55)
[2023-01-14 00:22] VITALS: BP 152/77; PULSE 65; RESP 18; TEMP 36.8; O2SAT 94
[2023-01-14 05:02] VITALS: BP 180/90; PULSE 68; RESP 18; TEMP 37.1; O2SAT 92
[2023-01-14 05:30] LABS: INR 2.3 (0.9-1.3); Prothrombin Time 27.1 SECONDS (10.1-12.7)
[2023-01-14 05:43] LABS: Add Manual Diff / Slide Review NO; Basophils Absolute Auto 100 /uL (0-100); Basophils Percent Auto 0.8 % (0-2); Eosinophils Absolute Auto 100 /uL (0-450); Eosinophils Percent Auto 1.8 % (2-4); Hematocrit 32.1 % (36-46); Lymphocytes Absolute Auto 1200 /uL (1100-4500); Lymphocytes Percent Auto 16.4 % (25-40); Mean Corpuscular HGB Conc 31.2 % (30-36); Mean Corpuscular Hemoglobin 24.2 PG (26-34); Mean Corpuscular Volume 77.3 fL (80-100); Monocytes Absolute Auto 800 /uL (0-900); Monocytes Percent Auto 10.5 % (3-14); Neutrophils Absolute Auto 5300 /uL (1500-7000); Neutrophils Percent Auto 70.5 % (50-75); Platelet Count 265 X10^3/uL (150-400); Red Blood Cell Count 4.15 X10^6/uL (4.0-5.2); Red Cell Distribution Width 19.9 % (11.6-14.8); White Blood Cell Count 7.5 X10^3/uL (4.5-11.0)
[2023-01-14 06:02] LABS: BUN Creatinine Ratio 14.9 (6-22); Blood Urea Nitrogen 14 mg/dL (7-17); Calcium 8.4 mg/dL (8.4-10.2); Carbon Dioxide 26 mmol/L (22-32); Chloride 106 mmol/L (98-107); Estimated Glomerular Filt Rate > 60 mL/min (>60); Glucose 86 mg/dL (80-110); HEMOLYSIS < 15 (0-50); Potassium 4.1 mmol/L (3.4-5.1); Sodium 138 mmol/L (137-145)
[2023-01-14 06:54] VITALS: BP 156/80
[2023-01-14] MEDS: LEVOTHYROXINE 50 MCG TABLET 75 MCG PO (08:10)
[2023-01-14] MEDS: PANTOPRAZOLE DR 20 MG TABLET PO (08:11)
[2023-01-14] MEDS: allopurinoL 100 MG TABLET 300 MG PO (08:11)
[2023-01-14] MEDS: METOPROLOL ER 50 MG TABLET 75 MG PO (08:11)
[2023-01-14] MEDS: DOXYCYCLINE HYCLATE 100 MG TABLET PO (08:11)
[2023-01-14] MEDS: FLUoxetine 20 MG CAPSULE PO (08:11)
[2023-01-14 08:21] VITALS: BP 157/70; PULSE 61; RESP 16; TEMP 36.9; O2SAT 92
[2023-01-14 09:54] VITALS: PULSE 60
--- NOTE | 2023-01-14 10:13 | PT.IPTN ---
Current Diagnoses Displaced fracture of lateral cuneiform of unspecified foot, initial encounter for closed fracture (01/11/23) Physical Therapy Treatment Note M2 PT-IP Current Condition Start: 01/12/23 11:21 Freq: NEEDED Status: Discharge Protocol: Document 01/12/23 11:21 ES (Rec: 01/12/23 11:45 ES [id number]) Physical Therapy Current Condition Current Condition Evaluation Date 01/12/23 Treatment Diagnosis Syncopal episode, GLF, RLE injury, weakness Onset Date 01/11/23 M3 PT-IP Subjective Start: 01/12/23 11:21 Freq: NEEDED Status: Discharge Protocol: Document 01/14/23 09:46 KS (Rec: 01/14/23 13:30 KS [id number]) Subjective Physical Therapy Visit Type Type Treatment Note Visit Start Time 09:46 Visit Stop Time 10:13 Total Visit Minutes 27 Number of RESEARCH FOOD TECHNOLOGIST Visits 2 Physical Therapy Visit Comments Patient Comments Pt found resting in bed, agreeable to PT. Pt has ortho boot for fracture in R foot. Therapy Pain Assessment Pain When Pain Assessed During Mobility Pain Present Pain Present Denied Pain M4 PT-IP Mobility and Gait Start: 01/12/23 11:21 Freq: NEEDED Status: Discharge Protocol: Document 01/14/23 09:46 KS (Rec: 01/14/23 13:30 KS [id number]) PT-Bed Mobility Assessment Supine to Sit Supine to Sit Standby Assistance Sit to Supine Sit to Supine Standby Assistance Scooting Scooting to Edge of Bed Standby Assistance PT-Transfer Assessment Sit to and From Stand Sit to and from Stand Standby Assistance Equipment Transfer Assistive Device Gait Belt,Front Wheeled Walker Orthotic/Prosthetic Devices or Brace: No Transfers Transfer Destination Bed,Wheelchair Transfer Technique Ambulation Transfer Ability Level of Assist Standby Assistance,1 Person Assistance,Use of Upper Extremities Comments Mobility Comments Pt in bed upon arrival, boot placed on RLE. SBA for bed mobility and sit<>Stand w/ FWW . Pt ambulated 30 ft to w/c in hallway, transport to stairs, pt ascended/descended 6 steps total w/ BHR SBA w/ cues for sequencing, retruened to room in w/c ambulated last 30 ft back to bed. SBA for sit<>Sup. Dispensed FWW for home use. Pt and her sister endorse good family support and feel eager to take pt home. Gait Assessment Gait Gait Assistance Required: Standby Assistance Distance (Feet) 30 Assistive Devices Assistive Device Gait Belt,Front Wheeled Walker Orthotic/Prosthetic Devices or Brace: No Gait Deviations General Gait Pattern Antalgic,Decreased Stride Length,Decreased Feet Clearance,Step-to Gait Factors Limiting Gait Function Factors Limiting Gait Function Decreased Strength,Pain,Poor Balance Comments Gait Comments Pt reported no pain with ambulation, no LOB, good use of FWW. Stair Climbing Assessment Evaluation Level of Assist On Stairs Standby Assistance,1 Person Assistance Devices Stair Climbing Assistive Devices Left Railing,Right Railing Technique/Endurance Stair Climbing Direction Ascend and Descend Stair Climbing Technique Step to Step Number of Steps Climbed 3 Stair Climbing Set # Repetitions (reps) 2 Comments Stair Climbing Comments SBA, step to pattern, cues for leg sequencing. Feels safe to complete at home. Sister and granddaughter will assist her home. PT-Balance Assessment Sitting Balance and Reactions Static Sitting Balance Ability Normal Dynamic Sitting Balance Ability Good Standing Balance and Reactions Static Standing Balance Ability Good Dynamic Standing Balance Ability Fair Device Used FWW M5 PT-IP Objective Assessments Start: 01/12/23 11:21 Freq: NEEDED Status: Discharge Protocol: Document 01/12/23 11:21 ES (Rec: 01/12/23 11:45 ES [id number]) Orientation Orientation/Cognition Level of Alertness Alert Orientation Name,Age,Birthday,Month,Year, Day of Week,Place,Situation Language Function Ability Word Finding Difficulties Safety Awareness Decreased Safety Awareness Memory Description No Deficits Noted Gross Range of Motion Upper Extremity ROM Assessment Within Functional Limits Lower Extremity ROM Assessment Right Impaired Impairments RLE stiff and painful Strength Upper Extremity Strength Assessment Within Functional Limits Lower Extremity Strength Assessment Right Impaired Comments Strength Comments RLE weaker compared to L, patient reported it is due to pain M6 PT-IP Treatment Start: 01/12/23 11:21 Freq: NEEDED Status: Discharge Protocol: Document 01/14/23 09:46 KS (Rec: 01/14/23 13:30 KS [id number]) Physical Therapy Treatment Education Education Provided Safety Other Treatments Other Treatment Performed dispensed FWW for home use M7 PT-IP Assessment and Plan Start: 01/12/23 11:21 Freq: NEEDED Status: Discharge Protocol: Document 01/14/23 09:46 ID (Rec: 01/14/23 13:30 KS [id number]) PT Summary Assessment and Plan Potential Rehabilitation Potential Good Summary Impairments Pain,ROM,Strength,Balance, Transfers,Gait,Activity Tolerance Progress Towards Goals Progressing Toward Goals Assessment Summary Pt SBA for all bed mobility. transfers, ambulation, and stair training today. Ascended /descended 6 total steps w/ BHR. Denies pain when ambulating, able to osorio/doff boot. Dispensed FWW for home use. Pt will require assistance at home and will benefit from HHPT. Goals Bed Mobility Goal Independent Transfer Goal Independent,Cane Gait Goal Independent,Cane Gait Distance 100 Other Goals Patient will be able to ascend /descend 7 stairs with B rails indep. Days to Meet Goals 7 Frequency of Treatment Frequency Of Treatment Once a Day Treatment Plan Physical Therapy Treatment Plan Transfer Training,Gait Training,Therapeutic Exercise, Balance Retraining,Discharge Planning,Manual Therapy Other Recommendations and Next Treatment Progress ambulation, standing Focus tolerance, stair training. Weight Bearing Status Weight Bearing Status Weight Bear as Tolerated Recommendations To Nursing Amount of Assist Needed 1 Person Assist Discharge Recommendations PT Discharge Recommendations Home with Assistance,Home Health Transportation Needs at Discharge Private Vehicle
--- NOTE | 2023-01-14 11:20 | CM.DPC ---
DCP Discharge Home with HH Per MD, pt is medically stable to d/c home today with HH. Per FOAM RUBBER MIXER, pt completed stairs and cleared for home with HH and FWW and order placed for walker in case pt needs one issued at d/c but sister looking to see if she can pick one up and FOAM RUBBER MIXER will f/u. SW called [facility] and left msg with answering service on the weekend stating pt to d/c home and faxed F2F, HH orders and d/c summ to review. Plan: Patient to d/c home today via family POV and assist and new [facility] referral made and to follow after d/c. JACQUI Jang
--- NOTE | 2023-01-14 11:31 | PM.DS.1 ---
History of Present Illness History of Present Illness Date Patient Seen: 01/14/23 Chief complaint: LOC no memory of incident Narrative: Patient eager to go home. Able to do stairs safely today. No new complaints. Discharge Providers Provider Date of admission: 01/11/23 17:30 Discharge Date: 01/14/23 Primary care physician: [email or web address] Eddy Consults: 01/11/23 18:09 Consult to Occupational Therapy Evaluate & Treat Comment: Physician Instructions: Evaluate and treat Consult to Physical Therapy Evaluate & Treat Comment: Physician Instructions: Evaluate and Treat 01/11/23 23:38 Consult to Dietitian, Adult Routine Comment: Reason For Exam: BMI 31, also possible chronic hypoglycemia/dehydra 01/12/23 16:48 Consult to Orthopedic Surgery Routine Comment: Consulting Provider: Becky Soto Reason for consultation: right foot fracture Has provider been notified: Yes 01/14/23 10:54 Consult to Home Health Routine Comment: ankle fx, syncope, recent pneumonia Reason For Exam: Set up FWW for home use. 01/14/23 11:16 Consult to Home Health Routine Comment: Syncope, MUNA, Anemia, hx CVA, ankle fx Reason For Exam: Set up HH PT/OT/[employer] for d/c home today Discharge provider: Renetta Hernandez MD Summary Hospital Course Discharge Diagnosis: ?Syncopal episode Right foot fracture cuneiform, acute, present on admission MUNA Hypovolemia Anemia, chronic, present on admission History of CVA, with dysarthria, present on admission Atrial fibrillation, chronic, rate controlled, present on admission Hypertension, essential, present on admission Hypothyroid, acquired, acute on chronic, present on admission Hiatal hernia, chronic, present on admission Obesity, mild, acute on chronic, present on admission Hospital Course: Ms. Wadsworth is a 77W with PMH afib, CVA with dysarthria, HTN, hypothyroidism who presented to the hospital via her sister after suffering a reported syncopal episode.? The patient had just finished lunch and was attempting to get into her sister's car when she felt extremely lightheaded and per her sister lost consciousness, falling backwards to the ground hitting her head.? Patient denied any chest pain, shortness breast, diaphoresis, changes in vision, numbness weakness tingling headache prior to the event.? Patient was on Coumadin for atrial fibrillation.? And was hospitalized on 01/03/2023 for pneumonia.? Patient states she fell on her right side causing injury and pain to the right lower leg ankle and foot with inflammation redness and warmth to touch.? Right lower extremity vascular ultrasound was negative for DVT in ED, CTA negative for PE - but positive interstitial thickening and ground-glass present possible pulmonary edema/infection, head CT was negative for any acute process.? The sister reported to the ED that the patient had been confused on the car ride to the ED but in the ED patient was alert and orientated x3.? Patient also reported that the antibiotics that she completed approximately 1 week ago had given her severe diarrhea x 1wk, which had stopped 6 days ago.? Patient complains generalized weakness, and recent weight loss.? She has had a significantly decreased appetite and eats only 1 meal per day. ?On admit patient denied chest pain, shortness in breath, headache, changes in vision, difficulty swallowing, speech impairment, numbness, tingling, difficulty with ambulation, fever, body aches, chills, cough, abdominal pain, nausea, vomiting, urinary incontinence/retention, dysuria, frequency, urgency, hematuria, constipation, incontinence, melena, rashes, injury, or trauma. On admit vitals were stable temp 98.6?, 143/71, 62, 24, 92% on room air.? No white count, H and H 10.5/34 MCV 77.7, MCH 24.2.? BUN 20, creatinine 1.48, GFR 36 (last 01/04/23-BUN 16, creatinine 1.06, GFR 54).? The following were all normal troponin, procalcitonin, urinalysis, ETOH, COVID.? TSH was elevated 4.93 with free T4 on the low side of normal. Patient's levothyroxine was increased to 75 mcg daily and this should be followed with TSH, free T4 and free T3 within 1 month.? EKG demonstrated atrial fibrillation rate controlled [address] or T-wave changes on admission.? Patient was admitted for syncopal episode resulting in ground level fall, MUNA. CT of the right foot demonstrated acute nondisplaced and comminuted intra-articular fracture involving lateral cuneiform. Patient was fitted with a right walking cast and PT ensure that the patient was able to ambulate with a walker and also do stairs. Patient should wear the walking boot for 6 weeks. Patient was initially concerned of possible residual pneumonia and was treated with ceftriaxone and doxycycline. This was transitioned to Augmentin on discharge. Status at Discharge Cognitive/behavioral status at discharge: oriented Functional status at discharge: uses cane/walker Overall status at discharge: patient is progressing back to baseline Time Spent with Patient Time spent: Greater than 30 minutes Exam Vital Signs (past 8 hours): - 01/14/23 05:02 01/14/23 06:54 01/14/23 08:21 Temperature 98.7 F 98.5 F Pulse Rate 68 61 Respiratory Rate 18 16 Blood Pressure 180/90 H 156/80 H 157/70 H Pulse Oximetry 92 92 Oxygen Flow Rate 0 0 01/14/23 09:54 Temperature Pulse Rate 60 Respiratory Rate Blood Pressure Pulse Oximetry Oxygen Flow Rate Oxygen Delivery Method Room Air Oxygen Flow Rate 0 Narrative Exam Narrative: General:? Patient is a well-developed, well-nourished female, no acute medical distress. HEENT:? Normocephalic, atraumatic, extraocular muscles intact.? Pupils equal reactive to light. Chest:? Normal AP diameter and contour without kyphoscoliosis, no nasal flaring, retractions, tachypneic or? labored breathing Lungs:? Auscultation of all lung granados are clear with no wheezes or crackles. Cardio: irregular rhythm, AFib with no extra sounds or murmurs. Abdomen:? Soft nontender, negative for organomegaly, or masses.? Bowel sounds are present. Musculoskeletal:? Muscle strength and tone are equal within normal limits, right lower extremity inflammation erythema warmth and pain with palpation to touch from mid tibial through the foot. Full range of motion intact radial and pedal pulses are normal. Skin:? Warm dry and intact without rashes, ulcerations or petechiae.? With the exception of right lower leg Neuro:? Alert and orientated x3, moves all extremities, sensation normal. Psych:? Patient has a well-kept appearance, appropriate affect, and noted mood changes or depression. Objective Labs 01/14/23 04:50 01/14/23 04:50 Labs: Laboratory Results - last 24 hr 01/14/23 01/14/23 01/14/23 04:50 04:50 04:50 WBC 7.5 RBC 4.15 Hgb 10.0 L Hct 32.1 L MCV 77.3 L MCH 24.2 L MCHC 31.2 RDW 19.9 H Plt Count 265 Neut % (Auto) 70.5 Lymph % (Auto) 16.4 L Navarro % (Auto) 10.5 Eos % (Auto) 1.8 L Baso % (Auto) 0.8 Neut # (Auto) 5300 Lymph # (Auto) 1200 Navarro # (Auto) 800 Eos # (Auto) 100 Baso # (Auto) 100 PT 27.1 H INR 2.3 H Sodium 138 Potassium 4.1 Chloride 106 Carbon Dioxide 26 BUN 14 Creatinine 0.94 Estimated GFR > 60 BUN/Creatinine Ratio 14.9 Glucose 86 Calcium 8.4 PFSH Medical History Anticoagulated on Coumadin Atrial fibrillation Gout History of multiple cerebrovascular accidents (CVAs) Hypertension Hypothyroidism Surgical History No significant past surgical history Family History Father No problems noted. Mother No problems noted. Social History household members: none Smoking Status: Never smoker alcohol intake: never Discharge Plan Discharge Plan Patient Disposition: Home Discharge orders & Medications Prescriptions: New levothyroxine 75 mcg tablet 75 mcg PO DAILY Qty: 30 0RF amoxicillin-pot clavulanate [Augmentin] 500-125 mg Tablet 1 tab PO TID Qty: 15 0RF Continued atorvastatin 20 mg Tablet 20 mg PO BEDTIME cyanocobalamin (vitamin B-12) [Vitamin B-12] 1,000 mcg Tablet 1,000 mcg PO DAILY warfarin 5 mg Tablet 5 mg PO QPM Rx Instructions: 1tab every PM on , , Sun and 1/2tab on Mon, Wed, Fri, Sun gabapentin 300 mg Capsule 900 mg PO BEDTIME allopurinol 300 mg Tablet 300 mg PO DAILY Calcium 600 with Vitamin D3 600 mg(1,500mg) -400 unit Tablet,Chewable 1 tab PO DAILY fluoxetine 20 mg capsule 20 mg PO BID Patient Comments: TK 1 C PO D cetirizine [Zyrtec] 10 mg Tablet 10 mg PO PRN PRN (Reason: Allergy Symptoms) Patient Comments: Patient takes once daily as needed ascorbic acid (vitamin C) [Vitamin C] 500 mg Tablet 500 mg PO QAM omeprazole 20 mg capsule,delayed release(DR/EC) 20 mg PO DAILY metoprolol succinate 50 mg Tablet Extended Release 24 Hr 75 mg PO BID Qty: 45 0RF Discontinued levothyroxine 50 mcg tablet 50 mcg PO QAM Patient Comments: TK 1 T PO D Rx Instructions: Patient states she takes med twice a day on Sundays Follow up/Referrals: Becky Soto MD [Physician] - (call [phone] for ortho follow up in about 4 wks- earlier ok if having problems) Donna Santamaria ARNP [Primary Care Provider] - Visit Report/Discharge Packet Stand Alone Forms: Patient Portal/API, Stroke Signs & Symptoms Discharge Data Primary Care Provider: Donna Santamaria Attending Provider: Yash Castrejon Admit Date/Time: 01/11/23 17:30 Quality VTE Deep Vein Thrombosis/Pulmonary Embolism Present on Admission: No
--- NOTE | 2023-01-14 13:18 | PC.NURSE ---
Discharge Note Patient A&O, VSS, RA, no complaints of pain/discomfort. Patient agreeable to discharge plan. PIV/TELE discontinued. Discharge packet reviewed with patient, all questions/concerns addressed. Patient able to dress self and pack all belongings. Patient taken down to POV, accompanied by family.
== END 2023-01-14 13:15 | disposition home or self-care (01) ==
LOC: ED 16:50 → AC 17:31
PROVIDERS: Neuromusculoskeletal Medicine, Sports Medicine; Nurse Practitioner Family; Admitting Provider Student in an Organized Health Care Education/Training Program; Emergency Provider Emergency Medicine; PCP Nurse Practitioner Family; Referring Provider Emergency Medicine; Visit Provider Student in an Organized Health Care Education/Training Program
DX: R55 Syncope and collapse (principal); S92.221A Displaced fracture of lateral cuneiform of right foot, initial encounter for closed fracture; W18.39XA Other fall on same level, initial encounter; Y92.481 Parking lot as the place of occurrence of the external cause; E86.0 Dehydration; N17.9 Acute kidney failure, unspecified; D53.9 Nutritional anemia, unspecified; I48.20 Chronic atrial fibrillation, unspecified; I10 Essential (primary) hypertension; K44.9 Diaphragmatic hernia without obstruction or gangrene; E66.9 Obesity, unspecified; I69.322 Dysarthria following cerebral infarction; E03.9 Hypothyroidism, unspecified; Z68.31 Body mass index [BMI] 31.0-31.9, adult; Z20.822 Contact with and (suspected) exposure to COVID-19; Z79.01 Long term (current) use of anticoagulants
CPT/HCPCS: 36415; 70450; 71275; 73610; 73630; 73700; 80048; 80053; 80320; 81001; 81003; 82550; 82962; 83036; 83735; 84145; 84439; 84443; 84484; 85025; 85610; 85730; 87635; 93005; 93306; 93971; 96361; 96365; 96366; 97116; 97162; 97166; 97530; 99284; C9803; G0378; J0696; Q9967